=== PATIENT | female | born 1930 | race Hispanic/Latino ===

== ENCOUNTER 2016-08-03 10:45 | Inpatient (IN) | payer MEDICARE ==
[2016-08-03 10:56] VITALS: BMI 20.3
[2016-08-03] MEDS ORDERED: Morphine 4 mg/ml ISec IVP STA ×2 (11:11→13:03)
--- NOTE | 2016-08-03 11:33 | ED PDOC ---
Arrival/HPI - General Chief Complaint: Lower Extremity Problem/Injury Time Seen by Provider: 08/03/16 11:11 Historian: Patient, Other (daughter) - History of Present Illness Narrative History of Present Illness (Text): 08/03/16 11:39 An 85 year old female, whose past medical history includes Alzheimer's, presents to the emergency department complaining of right hip pain after mechanical fall. Patient's daughter reports patient fell this morning. Patient couldn't put pressure on right hip when daughter tried picking her up. Patient had a right hip replacement 5 years ago. Patient denies any other complaints at this time. Daughter and pt confirm she was laying on the ground for less than 30min. Symptom Onset: Sudden Symptom Course: Unchanged Activities at Onset: Rest Context: Home Associated Symptoms (Text): none Past Medical History - Provider Review Nursing Documentation Reviewed: Yes - Infectious Disease Hx of Infectious Diseases: None - Tetanus Immunization Tetanus Immunization: Unknown - Reproductive Menopause: Yes - Past Medical History Past Medical History: No Previous - Hematological/Oncological Hx Blood Transfusions: No Hx Blood Transfusion Reaction: No - Musculoskeletal/Rheumatological Hx Falls: Yes - Psychiatric Hx Depression: No Hx Emotional Abuse: No Hx Physical Abuse: No Hx Substance Use: No - Past Surgical History Past Surgical History: No Previous - Surgical History Hx Joint Replacement: Yes (right hip) - Anesthesia Hx Anesthesia Reactions: No Hx Malignant Hyperthermia: No - Suicidal Assessment Feels Threatened In Home Enviroment: No Family/Social History - Physician Review Nursing Documentation Reviewed: Yes Family/Social History: No Known Family HX Smoking Status: Light Smoker < 10 Cigarettes Daily Hx Alcohol Use: No Hx Substance Use: No Hx Substance Use Treatment: No Allergies/Home Meds Allergies/Adverse Reactions: Allergies No Known Allergies Allergy (Verified 08/03/16 10:56) Home Medications: Home Meds Medication Instructions Recorded Confirmed No Known Home Med [No Known Home 02/23/13 08/03/16 Med] Review of Systems - Physician Review All systems were reviewed & negative as marked: Yes Physical Exam - Physical Exam Narrative Physical Exam (Text): 08/03/16 11:33- Review of Systems Constitutional: Normal. absent: Fatigue, Weight Change, Fevers Eyes: Normal ENT: Normal Respiratory: Normal absent: SOB, Cough, Sputum Cardiovascular: Normal absent: Chest pain, Palpitations, Syncope Gastrointestinal: Normal absent: Abdominal pain, Diarrhea, Nausea, Vomiting Genitourinary: Normal. absent: Dysuria, Frequency, Hematuria Musculoskeletal: Present: right hip/leg pain absent: Back Pain, Neck Pain Skin: Normal Neurological: Normal absent: Focal Weakness Endocrine: Normal Hemo/Lymphatic: Normal Psychiatric: Normal - Physical exam Head atraumatic. No nasal bone deformity or tenderness, no facial or jaw pain/ swelling. No neck midline tenderness, thoracic and lumbar spine with no midline tenderness. Limited ROM of right hip. Femur tender to palpation. Distal neurovasc fully intact. Abd soft/nt/nd, no hematomas, no peritoneal signs. Neg. pelvic rock. Patient appears age appropriate, speaking full sentences without difficulty - Systems Exam Head: Present: Atraumatic, Normocephalic Pupils: Present: PERRL Extraocular Muscles: Present: EOMI Conjunctiva: Present: Normal Mouth: Present: Moist Mucous Membranes Neck: Present: Normal Range of Motion. No: MIDLINE TENDERNESS, Paraspinal Tenderness Respiratory/Chest: Present: Clear to Auscultation, Good Air Exchange. No: Respiratory Distress, Accessory Muscle Use, Tachypnic Cardiovascular: Present: Tachycardic Abdomen: Present: Normal Bowel Sounds, No: Tenderness, Peritoneal Signs, Rebound, Guarding, Distention Back: Present: Normal Inspection. No: Midline Tenderness, Paraspinal Tenderness Upper Extremity: Present: Normal Inspection. No: Cyanosis, Edema Lower Extremity: Present: Mid and proximal femur tender to palpation, limited ROM R hip. Distal neurovascular intact. No: Edema Neurological: Present: GCS=15, Speech Normal, cranial nerves II through XII fully intact with no cerebellar abnormality, neuro-sensory fully intact. No focal neurological deficits. Skin: Present: Warm, Dry, Normal Color. No: Rashes Lymphatic: Present: OX3, NI, NC Psychiatric: Present: Alert, Oriented x 3, Normal Insight, Normal Concentration Vital Signs Reviewed: Yes Vital Signs Temp Pulse Resp BP Pulse Ox 08/03/16 14:35 84 18 115/68 95 08/03/16 13:21 89 18 113/65 95 08/03/16 12:31 97 H 18 111/69 95 08/03/16 10:55 97.7 F 104 H 20 109/68 93 L Temperature: Afebrile Blood Pressure: Normal Pulse: Tachycardic Respiratory Rate: Normal Appearance: Positive for: Well-Appearing, Non-Toxic, Comfortable Pain Distress: None Mental Status: Positive for: Alert and Oriented X 3 Medical Decision Making ED Course and Treatment: 08/03/16 11:31 Impression: An 85 year old female with right hip pain after mechanical fall. On physical exam, femur tender to palpation and limited ROM of right hip. Differential includes but not limited to: fracture, dislocation, sprain Plan: -- Xray pelvis -- Xray hip/pelvis -- Xray Femur -- labs -- Morphine, Toradol -- Reassess and disposition Prior Visits: Notes and results from previous visits were reviewed. Progress Notes: Right femur Xray impression: incompletely imaged acute fracture in the proximal femur. Right hip Xray impression: acute oblique displaced impacted right intertrochanteric fracture. Pelvis Xray impression: no acute displaced fracture or dislocation. 08/03/16 13:[address] Gonzáles, states to admit and he will see pt dw Dr. Gutierrez, agrees with admission pt states she has RUQ tenderness to palpation, +Ponce's sign on reexamination US ordered pt and family aware of diagnosis and plan 08/03/16 13:[address] Gonzáles, asked to obtain CTs and states pt can eat today 08/03/16 14:58 pt US shows cholelithiasis currently pain free - Lab Interpretations Lab Results: 08/03/16 12:28 08/03/16 12:28 Lab Results 08/03/16 12:28: Blood Type O POSITIVE, Antibody Screen Negative, BBK History Checked Patient has bt 08/03/16 12:28: Sodium 138, Potassium 4.0, Chloride 101, Carbon Dioxide 28, Anion Gap 13, BUN 18, Creatinine 0.5, Est GFR ( Amer) > 60, Est GFR (Non- Af Amer) > 60, Random Glucose 91, Calcium 9.9, Total Bilirubin 0.8, AST 22, ALT 24, Alkaline Phosphatase 104, Total Protein 6.3, Albumin 3.9, Globulin 2.3, Albumin/Globulin Ratio 1.7 08/03/16 12:28: PT 11.4, INR 1.06, APTT 29.0 08/03/16 12:28: WBC 11.5 H, RBC 4.33, Hgb 12.4, Hct 37.7, MCV 87.1, MCH 28.6, MCHC 32.9, RDW 13.7, Plt Count 222, MPV 9.4, Gran % 59.5, Lymph % (Auto) 34.3, Citrus % (Auto) 5.7, Eos % (Auto) 0.3 L, Baso % (Auto) 0.2, Gran # 6.82 H, Lymph # 3.9 H, Citrus # 0.7 H, Eos # 0.0, Baso # 0.02 I have reviewed the lab results: Yes - RAD Interpretation Radiology Orders: 08/03/16 11:13 PELVIS W/OBLIQUES (3VWS) [RAD] Stat Femur Right [FEMUR MIN 2 VIEWS RT] [RAD] Stat HIP MIN 4V W/ PELVIS RT [RAD] Stat 08/03/16 13:03 ABDOMEN COMPLETE [US] Stat - Medication Orders Current Medication Orders: Sodium Chloride (Sodium Chloride 0.9%) 1,000 mls @ 70 mls/hr IV .[id number] ANSELMO Last Admin: 08/03/16 14:34 Dose: 70 mls/hr Discontinued Medications Ketorolac Tromethamine (Toradol) 15 mg IVP STAT STA Stop: 08/03/16 11:12 Last Admin: 08/03/16 12:21 Dose: 15 mg Morphine Sulfate (Morphine) 4 mg IVP STAT STA Stop: 08/03/16 11:12 Last Admin: 08/03/16 12:21 Dose: 4 mg Morphine Sulfate (Morphine) 4 mg IVP STAT STA Stop: 08/03/16 13:04 Last Admin: 08/03/16 14:26 Dose: 4 mg - Scribe Statement The provider has reviewed the documentation as recorded by the Eladia Cosme Provider Scribe Attestation: All medical record entries made by the Gloriaibanila were at my direction and personally dictated by me. I have reviewed the chart and agree that the record accurately reflects my personal performance of the history, physical exam, medical decision making, and the department course for this patient. I have also personally directed, reviewed, and agree with the discharge instructions and disposition. Disposition/Present on Arrival - Present on Arrival Any Indicators Present on Arrival: No History of DVT/PE: No History of Uncontrolled Diabetes: No Urinary Catheter: No History of Decub. Ulcer: No History Surgical Site Infection Following: None - Disposition Have Diagnosis and Disposition been Completed?: Yes Diagnosis: Femur fracture Disposition: HOSPITALIZED Disposition Time: 13:17 Patient Plan: Admission Patient Problems: Current Active Problems Problem Status Onset Femur fracture Acute Condition: FAIR
--- NOTE | 2016-08-03 12:25 | RAD ---
PROCEDURE: Radiographs of the pelvis. HISTORY: Pain COMPARISON: 02/24/2013. FINDINGS: BONES: Pelvic Bones: The pelvic ring is intact there is diffuse bone demineralization. There is no acute fracture or bone destruction. Hips: Status post right hip arthroplasty. No hardware complications. 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 JOINTS: Sacroiliac Joints: Mild degenerative osteoarthrosis. Pubic Symphysis: Unremarkable. OTHER FINDINGS: None. IMPRESSION: No acute displaced fracture or dislocation. Status post right hip arthroplasty, no hardware complications with
--- NOTE | 2016-08-03 12:28 | RAD ---
PROCEDURE: Right Hip Radiographs. HISTORY: fall COMPARISON: None. FINDINGS: BONES: There is an acute oblique displaced impacted right intertrochanteric fracture. JOINTS: Status post right hip arthroplasty. SOFT TISSUES: Normal. OTHER FINDINGS: None. IMPRESSION: Acute oblique displaced impacted right intertrochanteric fracture.
[2016-08-03 12:29] LABS: ADD MANUAL DIFF? NO
--- NOTE | 2016-08-03 12:29 | RAD ---
PROCEDURE: Right Femur Radiographs. HISTORY: Fall COMPARISON: None. TECHNIQUE: AP and Lateral Radiographs of the right femur. FINDINGS: FEMUR: There is diffuse bone demineralization. Status post right hip arthroplasty. Incompletely imaged is acute fracture in the proximal femur. SOFT TISSUES: Normal. OTHER FINDINGS: None. IMPRESSION: Incompletely imaged acute fracture in the proximal femur.
[2016-08-03 12:42] LABS: BASO # 0.02 K/mm3 (0.0-2.0); BASO % 0.2 % (0.0-3.0); EOS % 0.3 % (1.5-5.0); GRAN # 6.82 (1.4-6.5); GRAN % 59.5 % (50.0-68.0); HEMATOCRIT 37.7 % (36.0-48.0); LYMPH # 3.9 (1.2-3.4); LYMPH % 34.3 % (22.0-35.0); MEAN CELL VOLUME 87.1 fL (80.0-105.0); MEAN CORPUSCULAR HEMOGLOBIN 28.6 pg (25.0-35.0); MEAN CORPUSCULAR HGB CONC 32.9 g/dl (31.0-37.0); MEAN PLATELET VOLUME 9.4 fl (7.0-11.0); MONO # 0.7 (0.1-0.6); MONO % 5.7 % (1.0-6.0); PLATELET COUNT 222 10^3/uL (120.0-450.0); RED CELL DISTRIBUTION WIDTH 13.7 % (11.5-14.5); WHITE BLOOD COUNT 11.5 10^3/ul (4.5-11.0)
[2016-08-03 12:47] LABS: INR 1.06 (0.93-1.08)
[2016-08-03 12:52] LABS: ALB/GLOB RATIO 1.7 (1.1-1.8); ALKALINE PHOSPHATASE 104 U/L (38-133); ALT/SGPT 24 U/L (7-56); AST/SGOT 22 U/L (15-39); BILIRUBIN,TOTAL 0.8 mg/dL (0.2-1.3); BLOOD UREA NITROGEN 18 mg/dL (7-21); CALCIUM 9.9 mg/dL (8.4-10.5); CARBON DIOXIDE 28 mmol/L (21-33); CHLORIDE 101 mmol/L (98-107); GFR AFRICAN-AMERICAN > 60; GLUCOSE,RANDOM 91 mg/dL (70-110); SODIUM 138 mmol/L (132-148); TOTAL PROTEIN 6.3 g/dL (5.8-8.3)
--- NOTE | 2016-08-03 14:11 | US ---
HISTORY: Right-sided abdominal pain COMPARISON: None. TECHNIQUE: Grayscale imaging was performed. FINDINGS: LIVER: Measures 19.9 cm. Normal echogenicity of the liver parenchyma. No mass. No intrahepatic bile duct dilatation. GALLBLADDER: There are multiple gallstones. No wall thickening, pericholecystic fluid or positive sonographic Ponce's sign COMMON BILE DUCT: Measures 6.1 mm. No stones. No dilatation. PANCREAS: Unremarkable as visualized. No mass. No ductal dilatation. RIGHT KIDNEY: Measures 13.6cm. Normal echogenicity. No calculus, mass, or hydronephrosis. There is a 4.4 x 4.5 x 5.0 cm simple cyst in the lower pole. LEFT KIDNEY: Measures 11.5cm. Normal echogenicity. No calculus, mass, or hydronephrosis. There is a 2.8 x 2.8 x 2.5 cm simple cyst in the interpolar region. SPLEEN: Normal in size and contour. No mass. AORTA: No aneurysmal dilatation. IVC: Unremarkable. OTHER FINDINGS: None. IMPRESSION: Mild hepatomegaly. Cholelithiasis. 5.0 cm simple cyst in the lower pole of the right kidney.
[2016-08-03] MEDS: Sodium Chloride 0.9% 1,000 ML IV SCH (14:34)
--- NOTE | 2016-08-03 14:46 | CT ---
PROCEDURE: Right hip without contrast HISTORY: fx COMPARISON: Previous plain films dated 08/03/2016 and 02/24/2013 TECHNIQUE: CT of the right hip was performed without IV contrast. Sagittal and coronal reconstructions were performed FINDINGS: There is a pre-existing right hip prosthesis. There is a displaced fracture around the femoral component of the prosthesis involving the proximal femoral shaft. This also extends into the intertrochanteric region. Anatomic alignment is maintained. There is no dislocation of the hip joint. The distal femur is unremarkable. There is diffuse osteopenia with loss of trabecular bone. IMPRESSION: Fracture around the femoral component of the right hip prosthesis involving the proximal femoral shaft and intertrochanteric region.
--- NOTE | 2016-08-03 14:47 | CON ---
DATE: 08/03/2016 ORTHOPEDIC REPORT The patient slipped and fell at home. She is in the ER today at [facility]. X-rays of her rig ht hip shows a periprosthetic fracture of the right proximal femur just at the level of the lesser tr ochanter, which is comminuted, but the stem looks stable, but she is going to be going to CAT scan to see how far the fracture extends distally, as the less greater trochanter looks a little fractured a lso, but it is compatible for an NCB plate where we could control the bone from the greater trochante r down to the lateral femoral condyle. She has a well-seated bipolar prosthesis that is pressfit. T here does not appear to be pain when she is at rest, and there is no malpositioning of the lower extr emity on the right side. The patient and family will consent to a stabilization of the fracture, so she could mobilize quicker by putting that NCB plate from [employer] over the fracture to stabilize it. I am going to try to get a medical clearance and get some orthopedic help. There is a chance she tod ht have to be transferred to [facility] to accomplish this. FINAL DIAGNOSIS: Periprosthetic fracture, right femur. To stabilize it, we would have to do an ORIF of the fracture around the well-fixed bipolar prosthesis by doing a [employer] NCB plate once she is medically cleared. Raymundo Che DO cc: [id number] TT: 08/03/2016 14:47:22 Confirmation # [id number] Dictation # [id number] [place]
[2016-08-03] MEDS ORDERED: Enoxaparin 40 mg Syringe SC SCH (15:15)
[2016-08-03] MEDS: HYDROmorphone 0.5 mg/0.5 ml ISec SC PRN ×2 (17:39→21:36)
[2016-08-03 21:02] LABS: ADD MANUAL DIFF? NO
[2016-08-03 21:06] LABS: BASO # 0.02 K/mm3 (0.0-2.0); BASO % 0.2 % (0.0-3.0); EOS % 0.2 % (1.5-5.0); GRAN # 5.04 (1.4-6.5); GRAN % 58.5 % (50.0-68.0); HEMATOCRIT 32.3 % (36.0-48.0); LYMPH # 3.2 (1.2-3.4); LYMPH % 36.8 % (22.0-35.0); MEAN CELL VOLUME 86.1 fL (80.0-105.0); MEAN CORPUSCULAR HGB CONC 32.5 g/dl (31.0-37.0); MEAN PLATELET VOLUME 9.1 fl (7.0-11.0); MONO # 0.4 (0.1-0.6); MONO % 4.3 % (1.0-6.0); PLATELET COUNT 192 10^3/uL (120.0-450.0); RED CELL DISTRIBUTION WIDTH 13.8 % (11.5-14.5); WHITE BLOOD COUNT 8.6 10^3/ul (4.5-11.0)
--- NOTE | 2016-08-03 23:26 | CON ---
DATE: 08/03/2016 LOCATION: The patient is in room 574, bed #2. REASON FOR CONSULTATION AND FOLLOWUP: Risk stratification for hip surgery, cardiac evaluation. HISTORY OF PRESENT ILLNESS: This 85-year-old female had a mechanical fall at home and started compla ining of pain in the right hip area, and she could not get up, and patient found to have a fracture o f the right hip. The patient had 5 years ago same fracture and had replacement therapy at that time. The patient denies any history of chest pain, shortness of breath, palpitation. PAST MEDICAL HISTORY: Positive for the right hip fracture and surgery. PERSONAL HISTORY: She used to smoke 8-10 cigarettes a day, now she states she smokes 2-3 cigarettes a day. She denies drinking. ALLERGIES: Denies any allergies. HOME MEDICATIONS: She says she only was taking vitamin pills. REVIEW OF SYSTEMS: All the systems were reviewed, positive mentioned in the history, others were neg ative. PHYSICAL EXAMINATION: VITAL SIGNS: Blood pressure 135/68, respirations 18, pulse 84, temperature 98.4. HEENT: Head is normocephalic. Eyes: Pupils are normal. Conjunctivae slightly pale. NECK: JVP low. Carotid equal. THORAX: AP diameter normal. LUNGS: Clear. CARDIOVASCULAR: S1, S2. ABDOMEN: Soft, nontender, no organomegaly. Bowel sounds normal. EXTREMITIES: No clubbing, no cyanosis. LABORATORY DATA: WBC 8.6, hemoglobin 10.5, hematocrit 32.3, platelet 192. Sodium 138, potassium 4.0 , BUN 18, creatinine 0.5. AST, ALT, total bilirubin, total protein, albumin normal. EKG shows sinus tachycardia at 104 per minute, nonspecific ST and T changes. X-ray of the hip showed acute oblique displaced impacted right intertrochanteric fracture. CT scan of the right hip showed fracture around the femoral component of the right hip prosthesis involving the proximal femoral shaft and intertroc hanteric region. DIAGNOSES: Fractured right hip, anemia. PLAN: The patient is getting IV fluid therapy. The patient also getting pain medication. Lovenox 4 0 mg subcutaneous daily has been ordered. Will add beta-saima therapy, metoprolol 25 b.i.d., and f rom a cardiac point of view, the patient can go for hip surgery as a moderate to high risk for her ag e and there is no absolute contraindication not to do the surgery. We will follow with you. Mitch Loo MD cc: [id number] TT: 08/03/2016 23:25:58 Confirmation # [id number] Dictation # [id number] dn
[2016-08-04] MEDS: Oxycodone/Acetaminophen 5/325 mg Tab PO PRN ×2 (01:01→23:17)
[2016-08-04] MEDS: Sodium Chloride 0.9% 1,000 ML IV SCH (06:11)
[2016-08-04 07:32] LABS: PH,URINE 5.5 (4.7-8.0); URINE BILIRUBIN NEGATIVE (NEGATIVE); URINE BLOOD SMALL (NEGATIVE); URINE GLUCOSE (UA) NEGATIVE (NEGATIVE); URINE KETONE 15 mg/dL (NEGATIVE); URINE LEUKOCYTE ESTERASE SMALL Leu/uL (NEGATIVE); URINE PROTEIN NEGATIVE mg/dL (<30 mg/dL); URINE UROBILINOGEN 0.2 E.U./dL (<1 E.U./dL)
[2016-08-04 07:34] LABS: URINE APPEARANCE TURBID (CLEAR); URINE COLOR YELLOW (YELLOW)
[2016-08-04 07:51] LABS: URINE BACTERIA MANY (NEG); URINE RBC 0 - 2 /hpf (0-2); URINE WBC 25 - 30 /hpf (0-6)
[2016-08-04 09:08] LABS: ALB/GLOB RATIO 1.5 (1.1-1.8); ALKALINE PHOSPHATASE 78 U/L (38-133); ALT/SGPT 24 U/L (7-56); AST/SGOT 21 U/L (15-39); BILIRUBIN,TOTAL 0.8 mg/dL (0.2-1.3); BLOOD UREA NITROGEN 23 mg/dL (7-21); CALCIUM 8.5 mg/dL (8.4-10.5); CARBON DIOXIDE 26 mmol/L (21-33); CHLORIDE 103 mmol/L (98-107); GFR AFRICAN-AMERICAN > 60; GLUCOSE,RANDOM 97 mg/dL (70-110); POTASSIUM 3.8 mmol/L (3.6-5.0); SODIUM 134 mmol/L (132-148); TOTAL PROTEIN 5.6 g/dL (5.8-8.3)
--- NOTE | 2016-08-04 10:13 | RAD ---
HISTORY: Pre-Op COMPARISON: 02/23/2013 FINDINGS: LUNGS: No active pulmonary disease. PLEURA: No significant pleural effusion identified, no pneumothorax apparent. CARDIOVASCULAR: Normal. OSSEOUS STRUCTURES: No significant abnormalities. VISUALIZED UPPER ABDOMEN: Normal. OTHER FINDINGS: None. IMPRESSION: No active disease.
--- NOTE | 2016-08-04 10:16 | HP ---
CHIEF COMPLAINT AND HISTORY OF PRESENT ILLNESS: This is an 85-year-old female who is coming in to [facility] because of a fall. The patient had a mechanical fall on the right side and was found to h ave a right hip fracture. She was not able to put any pressure on her hip. According to the patient 's daughter that I spoke to yesterday, she did have a hip replacement about 5 years ago. She denies any syncopal episode, no dizziness, no incontinence, no tongue biting, no fevers or chills, no nausea , no vomiting, no dysuria or frequency, no nocturia, no weakness in the arms or the legs except in [facility] right leg, which causes her pain. She otherwise feels well. Pain is controlled with medications. She is not moving. The pain is about 2-3 and tolerable. REVIEW OF SYMPTOMS: All other review of symptoms are within normal limits except as mentioned. ALLERGIES: No known drug allergies. HOME MEDICATIONS: None. PAST MEDICAL HISTORY: Fall. PAST SURGICAL HISTORY: Right hip surgery. SOCIAL HISTORY: She does smoke less than 10 cigarettes a day. She denies alcohol, substance abuse. FAMILY HISTORY: Noncontributory. MEDICATIONS: None. PHYSICAL EXAMINATION: VITAL SIGNS: Temperature is 98.5, pulse of 109. Blood pressure is 111/87, respirations 18, O2 satur ation 94%. Height is 5 feet 7 inches. Weight is 130 pounds. BMI is 20.4. GENERAL: The patient is lying in bed, flat, and in no apparent distress. HEAD AND NECK EXAM: Atraumatic, normocephalic. Conjunctivae are pink. Throat clear and mouth with moist mucosa. Oropharynx benign. EYES: Extraocular movements are intact. PERRLA. NECK: Supple. No JVD, thyromegaly, or adenopathy. No bruits. HEART: S1 and S2 regular rate and rhythm. No murmurs, rubs, or gallops. LUNGS: Clear to auscultation bilaterally. No wheezing rales or rhonchi appreciated. No retraction s on exam. ABDOMEN: Soft, nontender, nondistended. Bowel sounds are positive in all quadrants. No rebound. No hepatosplenomegaly. EXTREMITIES: No cyanosis, clubbing, or edema. In the right leg, there is decreased movement becau se of pain. NEURO: No facial asymmetry, tongue is midline, no uvula deviation. Power is 5/5 in upper extremity and 5/5 in lower extremity. Sensation is normal in upper extremity and lower extremity. PSYCH: Awake, alert, oriented x 2. No anxiety or depression symptoms. Good insight. Normal affe ct. : No CVA tenderness VASCULAR: 2+ pulses in carotid and pedal pulses. SKIN: No erythema or abnormal nodules noted. SPINE: Normal curvature. LYMPHADENOPATHY: No anterior cervical or posterior cervical adenopathy. No inguinal adenopathy. LABORATORY DATA: White count of 11.5, hemoglobin 12.4. Platelets are 222. INR is 1.06. Chemistry shows a sodium 138. Potassium is 4.0. Creatinine is 0.5. AST and ALT are 22 and 24. Albumin is 3. 9. Urine shows blood, small. Nitrites are positive. WBCs are 25-30. A hip and pelvis x-ray done shows an incomplete image acute fracture in the proximal humerus on the r ight femur x-ray, and on the hip x-ray. Pelvic x-ray shows no acute displaced fracture or dislocation. CT of the hip done shows a fracture around the femoral component of the right hip prosthesis involvin g the proximal femoral shaft and intertrochanteric region. Chest x-ray shows no infiltrates. ASSESSMENT: 1. Right hip fracture. 2. Smoking. 3. Fall. 4. A 5-cm simple cyst in the right kidney. 5. Hepatomegaly, mild. 6. Cholelithiasis. PLAN: The patient is going to be admitted to the hospital. She is going to need surgery. I did spe ak to the patient's daughter yesterday. The patient is on a nicotine patch for her smoking. She is on oxycodone for pain. The patient is on IV fluids. The patient is on Lopressor. She is going to b e on Dilaudid for pain. She was cleared by Dr. Loo. We will repeat the patient's blood work coltenairam coker. I did speak to Dr. Che today. Tristan Gutierrez MD cc: [id number] TT: 08/04/2016 10:15:27 [place]
[2016-08-04] MEDS ORDERED: Bupivacaine 0.5% Inj(30mL) ONE (13:13)
[2016-08-04] MEDS: HYDROmorphone 0.5 mg/0.5 ml ISec SC PRN ×2 (13:20→21:24)
[2016-08-04] MEDS ORDERED: Propofol 10 mg/ml Inj (20 ML) ONE (13:48)
[2016-08-04] MEDS ORDERED: ePHEDrine 50 mg/ml Inj ONE (13:49)
[2016-08-04] MEDS ORDERED: Phenylephrine 10 mg/ml Inj ONE (13:49)
[2016-08-04] MEDS ORDERED: Succinylcholine 200 mg/10 ml Inj IV ONE (13:57)
--- NOTE | 2016-08-04 14:08 | PN ---
DATE: 08/04/2016 Being prepared for surgery of her right femur where she had fractured around a bipolar hip prosthesis 2 days ago. It is in good position but needs to be stabilized with a cerclage wire and a femoral pl ate to stabilize it so she could get up out of bed. Family was told about doing the surgery for stab ilization and understands the risks and benefits; benefits being that she could get up out of bed and start ambulating. The risk is if we do not do the surgery, she would have protracted bed rest and w ith a good chance the fracture would go out of place and that would have its own complications of phl ebitis of the lower extremity and pulmonary issues because she is a smoker too. Family was told she probably would lose some blood but might have to replace it if it becomes under 8.5 grams. We are go ing to plan on doing the surgery today, and the family signed a consent. Will follow her closely. Raymundo Che DO cc: [id number] TT: 08/04/2016 14:07:28 Confirmation # [id number] Dictation # [id number] cash
--- NOTE | 2016-08-04 14:28 | CARD ---
APPROVED REPORT EKG Measurement Heart [id number] MA [id number] <Conclusion> Sinus tachycardia STTW changes c/w ischemia
[2016-08-04] MEDS ORDERED: Rocuronium 10 mg/ml (5 ml) ONE (14:46)
[2016-08-04] MEDS ORDERED: Vancomycin 1 g Inj ONE ×2 (15:39→16:21)
[2016-08-04] MEDS ORDERED: HYDROmorphone 0.5 mg/0.5 ml ISec IVP PRN (17:36)
[2016-08-04] MEDS ORDERED: Lactated Ringer's 1,000 ML IV SCH (17:36)
[2016-08-04] MEDS ORDERED: Dextrose 5%/0.45% NS 1,000 ML IV SCH (17:45)
[2016-08-04 17:54] LABS: ADD MANUAL DIFF? NO
[2016-08-04 18:08] LABS: BASO # 0.03 K/mm3 (0.0-2.0); BASO % 0.3 % (0.0-3.0); EOS % 0.2 % (1.5-5.0); GRAN # 6.63 (1.4-6.5); GRAN % 64.5 % (50.0-68.0); HEMATOCRIT 29.8 % (36.0-48.0); LYMPH # 2.8 (1.2-3.4); LYMPH % 26.9 % (22.0-35.0); MEAN CELL VOLUME 89.2 fL (80.0-105.0); MEAN CORPUSCULAR HEMOGLOBIN 28.4 pg (25.0-35.0); MEAN CORPUSCULAR HGB CONC 31.9 g/dl (31.0-37.0); MEAN PLATELET VOLUME 9.3 fl (7.0-11.0); MONO # 0.8 (0.1-0.6); MONO % 8.1 % (1.0-6.0); PLATELET COUNT 187 10^3/uL (120.0-450.0); RED CELL DISTRIBUTION WIDTH 14.2 % (11.5-14.5); WHITE BLOOD COUNT 10.3 10^3/ul (4.5-11.0)
[2016-08-04] MEDS ORDERED: Albuterol-Ipratrop 3 mg / 0.5 (3 ml) UD ONE (18:31)
--- NOTE | 2016-08-04 19:35 | PN ---
DATE: 08/04/2016 LOCATION: Room 574, bed 2. REASON FOR CONSULTATION AND FOLLOWUP: Risk stratification for hip surgery, cardiac evaluation. HISTORY OF PRESENT ILLNESS: This is an 85-year-old female who had a mechanical fall at home and star maddy complaining of pain in the right hip area and she could not get up. The patient found to have fr acture of the right hip. the patient 5 years ago had a fracture of the same hip joint. The pa tient is lying flat in bed without chest pain, shortness of breath, or palpitations. PHYSICAL EXAMINATION: VITAL SIGNS: Blood pressure 122/64, respirations 20, pulse 88, temperature 98.8. HEAD: Normocephalic. EYES: Pupils normal. Conjunctivae slightly pale. NECK: JVP low. Carotid equal. THORAX: AP diameter normal. LUNGS: Clear. CARDIOVASCULAR: S1, S2. ABDOMEN: Soft, nontender, no organomegaly. EXTREMITIES: No clubbing, no cyanosis. LABORATORY DATA: WBC 8.6, hemoglobin 10.5, hematocrit 23.3, platelets 192. Sodium 134, potassium 3. 8, BUN 23, creatinine 0.5, calcium 8.5, total bilirubin 0.8. AST and ALT normal. DIAGNOSES: Fractured right hip, anemia. PLAN: Clinically, the patient's cardiac status is stable. I started metoprolol 25 b.i.d. yesterday and the patient can go for hip surgery as a [id number] risk for her age and there is no absolut e cardiac point of view contraindication to the surgery and will follow with you. Mitch Loo MD cc: [id number] TT: 08/04/2016 19:34:46 Confirmation # [id number] Dictation # [id number] dn
[2016-08-04] MEDS: Albuterol-Ipratrop 3 mg / 0.5 (3 ml) UD IH SCH (21:06)
[2016-08-05] MEDS: ceFAZolin 1 GM in Sodium Chloride 0.9% 50 ML IVPB SCH ×2 (01:00→09:12)
[2016-08-05] MEDS: Albuterol-Ipratrop 3 mg / 0.5 (3 ml) UD IH SCH ×3 (03:03→13:41)
[2016-08-05] MEDS: HYDROmorphone 0.5 mg/0.5 ml ISec SC PRN ×3 (05:37→17:12)
[2016-08-05 07:37] LABS: HEMATOCRIT 25.4 % (36.0-48.0); MEAN CELL VOLUME 87.6 fL (80.0-105.0); MEAN CORPUSCULAR HEMOGLOBIN 27.6 pg (25.0-35.0); MEAN CORPUSCULAR HGB CONC 31.5 g/dl (31.0-37.0); MEAN PLATELET VOLUME 9.6 fl (7.0-11.0); RED CELL DISTRIBUTION WIDTH 14.2 % (11.5-14.5); WHITE BLOOD COUNT 6.9 10^3/ul (4.5-11.0)
--- NOTE | 2016-08-05 07:44 | OP ---
PROCEDURE DATE: 08/04/2016 PREOPERATIVE DIAGNOSIS: Periprosthetic fracture, right proximal femur under a 5 -year-old well-placed bipolar hip prosthesis from 5 years ago. The patient came in the Emergency Room yesterday. POSTOPERATIVE DIAGNOSIS: Periprosthetic fracture, right proximal femur with comminution. PROCEDURE: Open reduction internal fixation with NCB plate from [employer] and with multiple locking screws 4 distal to the implant stem, 2 proximally and over the metaphysis and 2 in the greater trochanter and then we put cerclage wire over the fracture itself in the middle of the proximal and distal screws.also using the troch extension plate. ROLL UP HELPER SURGEON: Dr. Shaan Ferrer and we put a big effert to make the case go smoothly. DESCRIPTION OF PROCEDURE: The patient taken to the OR. Right hip prepped and draped in sterile fashion, put on a fracture table in the right lateral decubitus position. The old incision was utilized that was used for the bipolar prosthesis 5 years ago. We started proximally and went distally and extended the incision about 3 inches distal to the first incision that was done 5 years ago. Deep knife used to go through the subcutaneous tissue. Fascia jared opened in line with the incision and ____ lateralis. Fracture was identified and it was held together by the stem but it was unstable, even though the stem of the prosthesis was holding it. So, we measured the plate. It was a 9-hole plate. We had 4 screws distal to the tip of the prosthesis and we started out by holding it together, getting good x-rays with the plate held to the bone with a K-wire. Then, we put 2 screws proximal in the greater trochanter and 2 proximal to the planned cerclage wires. Then, we put 3 screws distal into the intramedullary part of the bipolar prosthesis which was press- fit and we put 2 cerclage wires around the comminuted pieces of the fracture that were too small for the screws. This seemed to hold everything together. The prosthesis was sitting well. An x-ray showed good position of the hardware and the wires and the plate and the screws and the fracture and the prosthesis. Wound was irrigated with normal saline and and used 2gm of vancomycin powder closed in layers starting with #1 Vicryl for the deep layer including the fascia and vastus lateralis. No drain was needed. The subQ was a multiple layers subQ closure with 0 Vicryl and 2-0 Vicryl and skin with a combination of stainless steel marko and nylon. Dr. Garduno was of great assistance of holding things together, protecting the vital structures and inserting the hardware and putting the drill in working order. The patient taken to recovery room in good condition with abduction pillow. Raymundo Che DO cc: [id number] TT: 08/04/2016 19:31:30 08/05/2016 06:43:33 TO
[2016-08-05 07:52] LABS: ALB/GLOB RATIO 1.3 (1.1-1.8); ALKALINE PHOSPHATASE 65 U/L (38-133); ALT/SGPT 26 U/L (7-56); AST/SGOT 24 U/L (15-39); BILIRUBIN,TOTAL 0.7 mg/dL (0.2-1.3); BLOOD UREA NITROGEN 15 mg/dL (7-21); CALCIUM 7.7 mg/dL (8.4-10.5); CARBON DIOXIDE 26 mmol/L (21-33); CHLORIDE 104 mmol/L (98-107); GFR AFRICAN-AMERICAN > 60; GLUCOSE,RANDOM 145 mg/dL (70-110); POTASSIUM 3.7 mmol/L (3.6-5.0); SODIUM 134 mmol/L (132-148)
--- NOTE | 2016-08-05 14:45 | PN ---
DATE: 08/05/2016 SUBJECTIVE: The patient has no complaints of any chest pain, no shortness of breath. She does have some confusion according to the daughter at the bedside. PHYSICAL EXAMINATION: VITAL SIGNS: Temperature is 98.4, pulse of 90, blood pressure is 110/60, respiration is 18. GENERAL: The patient comfortable, in no acute distress. HEENT: Anicteric sclerae. Moist mucosa. NECK: No JVD or adenopathy. CARDIAC: S1/S2. No murmurs. No rubs. Regular. RESPIRATORY: Clear to auscultation bilaterally. No wheezes, rales, or rhonchi. Good air entry. ABDOMEN: Bowel sounds are positive, soft, nontender, and nondistended. EXTREMITIES: No edema. Has 1+ pulses. LABORATORIES: White count of 6.9, hemoglobin 8.0. Creatinine 0.5. ASSESSMENT: 1. Right hip fracture at the periprosthetic site, status post open reduction internal fixation. 2. Smoking. 3. Fall. 4. A 5 cm right renal cyst. 5. Hepatomegaly, mild. 6. Cholelithiasis. 7. Acute anemia, secondary to blood loss. PLAN: The patient is going to be transfused today. She is on IV fluids. I will discontinue the pat ient's IV fluids. She is going to be on metoprolol. She is going be on Lovenox for deep venous thro mbosis prophylaxis. She is on a nicotine patch for smoking. She is on Percocet for pain. She is on a heart healthy diet. I did speak to the patient's daughter at the bedside to give her an update on the patient's diagnosis and plan of care. Tristan Gutierrez MD cc: [id number] TT: 08/05/2016 14:44:19 Confirmation # [id number] Dictation # [id number] en
--- NOTE | 2016-08-05 16:07 | RAD ---
PROCEDURE: Fluoroscopy up to 1 hour HISTORY: O.R.I.F. RIGHT HIP COMPARISON: TECHNIQUE: Fluoroscopy was provided in the operating room. 1 minutes and 46 seconds of fluoroscopy time was use. Eight images were submitted FINDINGS: The study shows placement of a plate screws and wires around the proximal right femur. There is a preexisting right hip arthroplasty IMPRESSION: As above
--- NOTE | 2016-08-05 16:22 | PN ---
DATE: 08/05/2016 REASON FOR CONSULTATION AND FOLLOWUP: Hip fracture, status post cardiac evaluation for hip surgery, status post post-followup. BRIEF CLINICAL HISTORY: This is an 85-year-old female who had a mechanical fall at home and sustaine d fracture. Cardiac evaluation for hip fracture. The patient had a hip fracture 5 years ago and hip fracture at the same spot. The patient yesterday went to [place] for surgery and patient yester day underwent hip surgery. Denies any chest pain, shortness of breath, any palpitation. PHYSICAL EXAMINATION: As follows: VITAL SIGNS: Temperature afebrile, heart rate 90, blood pressure 110/60. HEENT: PERRLA, intact. NECK: Supple. No carotid bruits. No thyromegaly. CHEST: Clear to auscultation. HEART: S1, S2 regular. ABDOMEN: Soft. EXTREMITIES: Clubbing, cyanosis negative. BLOOD WORKUP: As follows: WBC 6.9, hemoglobin 8, hematocrit 25.4, platelet count 186. Chemistry sh ows sodium 134, potassium 3.7, chloride 104, carbon dioxide 26, anion gap of 8, BUN 15, creatinine 0. 5. Total protein ____, albumin 2.8. IMPRESSION: Protein calorie malnutrition, anemia, status post fall, status post fracture, status pos t open reduction internal fixation. Postop, patient is stable. No complaint of chest pain or shortn ess of breath, any palpitation except for the right femoral fracture and open reduction internal fixa tion. Anemia postop and protein-calorie malnutrition. RECOMMENDATION: Increase ____ ambulation. Continue adequate analgesia. Continue beta saima, 25 m g metoprolol ____. Deep venous thrombosis prophylaxis. We will follow with you. Thank you, Dr. Gutierrez for providing the opportunity in taking care of the patient. Mitch Streeter MD cc: [id number] TT: 08/05/2016 16:21:32 Confirmation # [id number] Dictation # [id number] sn
[2016-08-05] MEDS ORDERED: Enoxaparin 30 mg Syringe SC SCH (17:45)
[2016-08-05 20:21] LABS: ADD MANUAL DIFF? NO
[2016-08-05 20:35] LABS: BASO # 0.01 K/mm3 (0.0-2.0); BASO % 0.1 % (0.0-3.0); GRAN % 54.6 % (50.0-68.0); HEMATOCRIT 30.5 % (36.0-48.0); LYMPH # 2.8 (1.2-3.4); LYMPH % 33.7 % (22.0-35.0); MEAN CORPUSCULAR HEMOGLOBIN 27.9 pg (25.0-35.0); MEAN CORPUSCULAR HGB CONC 32.8 g/dl (31.0-37.0); MEAN PLATELET VOLUME 9.7 fl (7.0-11.0); MONO % 11.6 % (1.0-6.0); PLATELET COUNT 166 10^3/uL (120.0-450.0); RED CELL DISTRIBUTION WIDTH 14.9 % (11.5-14.5); WHITE BLOOD COUNT 8.4 10^3/ul (4.5-11.0)
[2016-08-06] MEDS: Albuterol-Ipratrop 3 mg / 0.5 (3 ml) UD IH SCH ×3 (01:54→13:21)
[2016-08-06] MEDS: HYDROmorphone 0.5 mg/0.5 ml ISec SC PRN ×2 (04:40→14:12)
[2016-08-06 07:45] VITALS: RESP 22; TEMP 100; O2SAT 95
[2016-08-06 08:07] LABS: ALB/GLOB RATIO 1.3 (1.1-1.8); ALKALINE PHOSPHATASE 69 U/L (38-133); ALT/SGPT 25 U/L (7-56); AST/SGOT 27 U/L (15-39); BLOOD UREA NITROGEN 13 mg/dL (7-21); CALCIUM 8.1 mg/dL (8.4-10.5); CARBON DIOXIDE 26 mmol/L (21-33); CHLORIDE 104 mmol/L (95-110); GFR AFRICAN-AMERICAN > 60; GLUCOSE,RANDOM 103 mg/dL (70-110); POTASSIUM 3.5 mmol/L (3.6-5.0); SODIUM 134 mmol/L (132-148); TOTAL PROTEIN 5.1 g/dL (5.8-8.3)
--- NOTE | 2016-08-06 08:55 | DS ---
DATE: 08/06/2016 DATE: 08/06/2016 SUBJECTIVE: The patient has no complaints of any chest pain, no shortness of breath, no headaches. PHYSICAL EXAMINATION: VITAL SIGNS: Temperature is 99.4, pulse of 105. Blood pressure is 126/51, respirations 18. GENERAL: The patient is comfortable, in no acute distress. HEENT: Anicteric sclerae. Moist mucosa. NECK: No JVD or adenopathy. CARDIAC: S1/S2. No murmurs. No rubs. Regular. RESPIRATORY: Clear to auscultation bilaterally. No wheezes, rales, or rhonchi. Good air entry. ABDOMEN: Bowel sounds are positive, soft, nontender, and nondistended. EXTREMITIES: No edema. Has 1+ pulses. LABS: Hemoglobin is 10.0. ASSESSMENT: 1. Right hip fracture at the periprosthetic site status post open reduction and internal fixation. 2. Acute anemia secondary to blood loss, status post transfusion of 2 units of packed red blood cell s. 3. Smoking. 4. Fall. 5. A 5-cm right renal cyst. 6. Hepatomegaly mild. 7. Cholelithiasis. PLAN: The patient is currently comfortable. She is to go to [facility] today. She is g oing to continue with metoprolol. She is on Lovenox for DVT prophylaxis. She is on nicotine patch. She is going to be continued on her Percocet. She feels well. CONDITION: Stable. ACTIVITY: Increase as tolerated. Tristan Gutierrez MD cc: [id number] TT: 08/06/2016 08:55:05 Confirmation # [id number] Dictation # [id number] solange
--- NOTE | 2016-08-06 09:27 | PN ---
DATE: 08/06/2016 An 85-year-old female who underwent ORIF of her right hip on 08/04/2016 for periprosthetic fracture o f bipolar hip prosthesis that was treated with a large bone plate and cerclage wires and screws. Thi s morning, she is comfortable. She had 2 units of blood yesterday and today she feels much better an d there is no complaint of pain. We are going to get her up out of bed and she can put partial weigh tbearing of the right hip, and hopefully progress well with therapy. The wound is dry. The choices are subacute rehab or home. Will see how she does and will just continue to follow the electrolytes and the CBC. Raymundo Che DO cc: [id number] TT: 08/06/2016 09:27:17 Confirmation # [id number] Dictation # [id number] cash
[2016-08-06] MEDS: Oxycodone/Acetaminophen 5/325 mg Tab PO PRN (09:47)
[2016-08-06 09:51] VITALS: BP 126/66; PULSE 90
--- NOTE | 2016-08-06 19:48 | PN ---
DATE: 08/06/2016 LOCATION: The patient is in room 572, bed 2. REASON FOR CONSULTATION AND FOLLOWUP: Hip fracture, status post cardiac evaluation for hip surgery, status post follow up of hip surgery. HISTORY OF PRESENT ILLNESS: The patient is an 85-year-old female who had a mechanical fall at home a nd sustained a fracture of the hip. The patient is post-hip fracture surgery, lying flat in bed with out chest pain, shortness of breath, or palpitation. PHYSICAL EXAMINATION: VITAL SIGNS: Blood pressure 126/66, respirations 22, pulse 90, temperature 100. HEENT: Head is normocephalic. Eyes: Pupils normal. Conjunctivae slightly pale. NECK: JVP low. Carotid equal. THORAX: AP diameter normal. LUNGS: Clear. CARDIOVASCULAR: S1, S2. ABDOMEN: Soft, nontender, no organomegaly. Bowel sounds normal. EXTREMITIES: No clubbing, no cyanosis. LABORATORY DATA: WBC 8.4, hemoglobin 10.0, hematocrit 30.5, platelet 166. Sodium 134, potassium 3.5 , BUN 13, creatinine 0.5. AST and ALT normal. Total protein 5.1, albumin 2.8. DIAGNOSES: Status post fall, status post hip fracture, status post hip fracture surgery, anemia, pro tein calorie malnutrition. PLAN: The patient is being transferred to a rehab facility today. The patient is on 25 mg of metopr olol b.i.d. Will continue that and will follow with you. Mitch Loo MD cc: [phone] TT: 08/06/2016 19:47:36 Confirmation # [id number] Dictation # [id number] dn
== END 2016-08-06 16:08 | DRG 481 ==
LOC: ED 10:45 → ERH 13:18 → 5RSO 15:19
PROVIDERS: ADMIT Internal Medicine Nephrology; ATTEND Internal Medicine Nephrology
PROC: 0QS606Z Reposition Right Upper Femur with Intramedullary Internal Fixation Device, Open Approach (ICD-10-PCS; principal; 2016-08-04 14:00)
DX: S72.141A Displaced intertrochanteric fracture of right femur, initial encounter for closed fracture (principal); M97.01XA Periprosthetic fracture around internal prosthetic right hip joint, initial encounter; E46 Unspecified protein-calorie malnutrition; N28.1 Cyst of kidney, acquired; R16.0 Hepatomegaly, not elsewhere classified; G30.9 Alzheimer's disease, unspecified; F02.80 Dementia in other diseases classified elsewhere, unspecified severity, without behavioral disturbance, psychotic disturbance, mood disturbance, and anxiety; D62 Acute posthemorrhagic anemia; W01.0XXA Fall on same level from slipping, tripping and stumbling without subsequent striking against object, initial encounter; Y92.009 Unspecified place in unspecified non-institutional (private) residence as the place of occurrence of the external cause; Z87.81 Personal history of (healed) traumatic fracture; F17.210 Nicotine dependence, cigarettes, uncomplicated; K80.20 Calculus of gallbladder without cholecystitis without obstruction; R40.2412 Glasgow coma scale score 13-15, at arrival to emergency department

== ENCOUNTER 2016-09-11 11:43 | Inpatient (IN) | payer MEDICARE ==
[2016-09-11 11:43] VITALS: BMI 20.3
[2016-09-11] MEDS ORDERED: Morphine 4 mg/ml ISec IVP STA (12:15)
[2016-09-11] MEDS ORDERED: Sodium Chloride 0.9% 1,000 ML IV STA (12:21)
--- NOTE | 2016-09-11 12:42 | ED PDOC ---
Arrival/HPI - General Chief Complaint: Trauma Time Seen by Provider: 09/11/16 11:50 Historian: Patient - History of Present Illness Narrative History of Present Illness (Text): 09/11/16 12:11 Gabriella Zhu is an 85 year old female, whose past medical history includes partial right hip replacement, and recent right side hip fracture, who is brought in by EMS after a fall. The patient reports she thinks she tripped and fell on her left side today causing her to experience pain in her left hip region. Patient denies chest pain, shortness of breath, dizziness, lightheadedness, or palpitation. Patient did not hit their head and denies any loss of consciousness, headache, fever, chills, cough, nausea, vomiting, diarrhea, visual changes, neck pain, dysuria, or other complaints. PMD: [facility]: Dr. Che Time/Duration: Prior to Arrival Symptom Onset: Sudden Symptom Course: Unchanged Activities at Onset: Light Modifying Factors (Text): pain is worse with palpation or movement on the left side area of hip Context: Home, Tripped Associated Symptoms (Text): None Past Medical History - Provider Review Nursing Documentation Reviewed: Yes - Infectious Disease Hx of Infectious Diseases: None - Tetanus Immunization Tetanus Immunization: Unknown - Past Medical History Past Medical History: No Previous - Cardiac Hx Cardiac Disorders: No - Pulmonary Hx Respiratory Disorders: No - Neurological Hx Neurological Disorder: Yes Hx Dementia: Yes - HEENT Hx HEENT Disorder: No - Renal Hx Renal Disorder: No - Endocrine/Metabolic Hx Endocrine Disorders: No - Hematological/Oncological Hx Blood Disorders: No Hx Blood Transfusions: No Hx Blood Transfusion Reaction: No - Integumentary Hx Dermatological Disorder: No - Musculoskeletal/Rheumatological Hx Musculoskeletal Disorders: Yes Hx Arthritis: Yes - Gastrointestinal Hx Gastrointestinal Disorders: Yes Hx Gall Bladder Disease: Yes (Gallstones) - Genitourinary/Gynecological Hx Genitourinary Disorders: Yes Hx Incontinence: Yes - Psychiatric Hx Psychophysiologic Disorder: No Hx Emotional Abuse: No Hx Physical Abuse: No Hx Substance Use: No - Past Surgical History Past Surgical History: No Previous - Surgical History Hx Orthopedic Surgery: Yes - Anesthesia Hx Anesthesia Reactions: No Hx Malignant Hyperthermia: No - Suicidal Assessment Feels Threatened In Home Enviroment: No Family/Social History - Physician Review Nursing Documentation Reviewed: Yes Family/Social History: Unknown Family HX Smoking Status: Current Some Days Smoker Hx Alcohol Use: No Hx Substance Use: No Hx Substance Use Treatment: No Allergies/Home Meds Allergies/Adverse Reactions: Allergies No Known Allergies Allergy (Verified 09/11/16 11:52) Home Medications: Home Meds Medication Instructions Recorded Confirmed ALPRAZolam [Xanax] 0.25 mg PO DAILY PRN 09/11/16 09/11/16 Metoprolol Tartrate [Metoprolol 25 mg PO BID 09/11/16 09/11/16 Tartrate] traMADol [Ultram] 50 mg PO Q6 PRN 09/11/16 09/11/16 Review of Systems - Physician Review All systems were reviewed & negative as marked: Yes - Review of Systems Constitutional: Normal Eyes: Normal ENT: Normal Respiratory: Normal Cardiovascular: Normal Gastrointestinal: Normal. absent: Abdominal Pain, Diarrhea, Nausea, Vomiting Genitourinary Female: Normal Musculoskeletal: Other (left hip pain) Skin: Normal Neurological: Normal. absent: Headache, Dizziness Endocrine: Normal. absent: Diaphoresis Hemo/Lymphatic: Normal Psychiatric: Normal Physical Exam Vital Signs Reviewed: Yes Vital Signs Temp Pulse Pulse Resp BP Pulse Ox 09/11/16 14:57 98.7 F 100 H 20 143/76 99 09/11/16 14:54 98.6 F 100 H 100 H 21 138/79 09/11/16 14:38 98.6 F 100 H 21 138/79 09/11/16 12:17 97.9 F 94 H 18 112/62 98 Temperature: Afebrile Blood Pressure: Normal Pulse: Tachycardic Respiratory Rate: Normal Appearance: Positive for: Uncomfortable (due to pain) Pain Distress: Moderate Mental Status: Positive for: Alert and Oriented X 3 - Systems Exam Head: Present: Atraumatic, Normocephalic Pupils: Present: PERRL Conjunctiva: Present: Normal Mouth: Present: Moist Mucous Membranes Pharnyx: Present: Normal. No: ERYTHEMA, Uvular Deviation Neck: Present: Normal Range of Motion. No: MIDLINE TENDERNESS Respiratory/Chest: Present: Clear to Auscultation, Good Air Exchange. No: Respiratory Distress, Accessory Muscle Use Cardiovascular: Present: Regular Rate and Rhythm, Normal S1, S2. No: Murmurs Abdomen: Present: Normal Bowel Sounds. No: Tenderness, Distention, Peritoneal Signs Upper Extremity: Present: Normal Inspection. No: Cyanosis, Edema Lower Extremity: Present: Other (left leg internallly rotated with ttp at the left hip). No: Edema Neurological: Present: GCS=15, CN II-XII Intact, Speech Normal Skin: Present: Warm, Dry, Normal Color. No: Rashes Psychiatric: Present: Alert, Oriented x 3, Normal Insight, Normal Concentration Medical Decision Making ED Course and Treatment: 09/11/16 12:11 Impression: 85 year old with left hip pain after mechanical fall. Differential Diagnosis included but are not limited to: fracture vs. dislocation Plan: -- EKG -- Chest X-ray -- Left Hip X-ray -- Urinalysis -- Labs -- Morphine and Sodium Chloride -- Reassess and disposition Progress notes: EKG: Ordered, reviewed, and independently interpreted the EKG. Rate : 85 BPM Rhythm : NSR Interpretation : Normal intervals, normal axis. No ST changes. 09/11/2016 13:05 Hemoglobin reading was 7.3. Consent was obtained by daughter for blood transfusion. 09/11/16 15:16 Patient with noted history. There is a subcapital fracture of the left hip. Will need surgery. Discussed with Dr. Che, who saw the patient, who said she will need an operation. Will need blood for transfusion. Discussed with Dr. Deng, covering Dr. Gutierrez. 09/11/16 14:08 Chest X-ray: Creator : Blair Yeboah MD COMPARISON: The the comparison chest 08/04/2016 FINDINGS: LUNGS: The interstitial markings are increased and coarsened with scattered peribronchial cuffing changes. . In addition, the lung lassiter are hyperinflated on. Rule out chronic changes of reactive/inflammatory airway disease and or emphysema. The. No focal consolidation. PLEURA: No significant pleural effusion identified. No pneumothorax apparent. CARDIOVASCULAR: Normal. OSSEOUS STRUCTURES: No significant abnormalities. VISUALIZED UPPER ABDOMEN: Normal. OTHER FINDINGS: None. IMPRESSION: The interstitial markings are increased and coarsened with scattered peribronchial cuffing changes. . In addition, the lung lassiter are hyperinflated on. Rule out chronic changes of reactive/inflammatory airway disease and or emphysema. The. No focal consolidation. 09/11/16 14:16 Hip and Pelvis X-ray: Creator : Blair Yeboah MD COMPARISON: Comparison made with prior study 08/03/2016. FINDINGS: Current study reveals a apparent impaction basicervical fracture of. Fracture lines extend into the greater trochanter region. Left femoral head is appropriately located within the left acetabulum. No other fractures are seen. Right-sided total hip replacement appears intact so far as can be seen however note that the entire right prostatic hip is not completely visualized. IMPRESSION: Basicervical impaction fracture with fracture lines extending into the greater trochanter region.No evidence of dislocation. Impaction fracture. 09/11/2016 14:[address] without contrast: Creator : Blair Yeboah MD FINDINGS: HEMORRHAGE: No acute parenchymal, subarachnoid or extra-axial hemorrhage. BRAIN: Moderate diffuse/confluent chronic periventricular white matter ischemic changes seen extending peripherally into the deep and subcortical white matter both cerebral hemispheres. There may be some extension of these changes into the white matter tracts of both basal nuclei. Mild vascular calcifications both carotid siphons. Moderate generalized volume loss. VENTRICLES: No evidence of obstructive hydrocephalus. CALVARIUM: No acute calvarial fracture seen. PARANASAL SINUSES: Unremarkable as visualized. No significant inflammatory changes. MASTOID AIR CELLS: Unremarkable as visualized. No inflammatory changes. OTHER FINDINGS: Orbits and contents appear grossly unremarkable. IMPRESSION: No acute intracranial hemorrhage. Moderate chronic white matter ischemic changes. There may also be some extension of these ischemic changes into the white matter tracts of both basal nuclei. Moderate volume loss - Lab Interpretations Lab Results: 09/11/16 12:41 09/11/16 12:41 Lab Results 09/11/16 12:41: Blood Type O POSITIVE, Antibody Screen Negative, Crossmatch See Detail, BBK History Checked Patient has bt 09/11/16 12:41: Sodium 137, Potassium 3.0 L, Chloride 99, Carbon Dioxide 29, Anion Gap 12, BUN 11, Creatinine 0.4 L, Est GFR ( Amer) > 60, Est GFR ( Non-Af Amer) > 60, Random Glucose 94, Calcium 8.8, Magnesium 1.9, Total Bilirubin 0.5, AST 25, ALT 21, Alkaline Phosphatase 138 H, Lactate Dehydrogenase 555, Total Creatine Kinase 32 L, Troponin I < 0.01, Total Protein 5.9, Albumin 3.2, Globulin 2.7, Albumin/Globulin Ratio 1.2, Lipase 12 L 09/11/16 12:41: PT 11.6, INR 1.07, APTT 28.7 09/11/16 12:41: WBC 11.1 H D, RBC 2.90 L, Hgb 7.3 L D, Hct 24.9 L, MCV 85.9, MCH 25.2, MCHC 29.3 L, RDW 16.2 H, Plt Count 623 H, MPV 9.0, Gran % 64.0, Lymph % (Auto) 29.9, [place] % (Auto) 5.7, Eos % (Auto) 0.2 L, Baso % (Auto) 0.2, Gran # 7.13 H, Lymph # 3.3, [place] # 0.6, Eos # 0.0, Baso # 0.02 I have reviewed the lab results: Yes - RAD Interpretation Radiology Orders: 09/11/16 12:14 Brain [HEAD W/O CONTRAST] [CT] Stat CHEST TWO VIEWS (PA/LAT) [RAD] Stat Hip Left [HIP MIN 4V W/ PELVIS LT] [RAD] Stat - EKG Interpretation Interpreted by ED Physician: Yes Type: 12 lead EKG - Medication Orders Current Medication Orders: Sodium Chloride (Sodium Chloride 0.9%) 1,000 mls @ 100 mls/hr IV .Q10H STA Stop: 09/11/16 22:20 Last Admin: 09/11/16 12:56 Dose: 100 mls/hr Discontinued Medications Hydromorphone HCl (Dilaudid) 0.5 mg IVP STAT STA Stop: 09/11/16 13:01 Last Admin: 09/11/16 14:18 Dose: 0.5 mg Morphine Sulfate (Morphine) 4 mg IVP STAT STA Stop: 09/11/16 12:16 Last Admin: 09/11/16 12:18 Dose: 4 mg Pneumococcal Polyvalent Vaccine (Pneumovax 23 Vaccine) 0.5 ml IM .ONCE ONE Stop: 09/11/16 15:11 Potassium Chloride (Potassium Chloride Oral Soln) 40 meq PO STAT STA Stop: 09/11/16 13:07 Last Admin: 09/11/16 14:18 Dose: 40 meq - Scribe Statement The provider has reviewed the documentation as recorded by the Scribe 09/11/2016 Damaris Marshall All medical record entries made by the Scribe were at my direction and personally dictated by me. I have reviewed the chart and agree that the record accurately reflects my personal performance of the history, physical exam, medical decision making, and the department course for this patient. I have also personally directed, reviewed, and agree with the discharge instructions and disposition. Disposition/Present on Arrival - Present on Arrival Any Indicators Present on Arrival: No History of DVT/PE: No History of Uncontrolled Diabetes: No Urinary Catheter: No History of Decub. Ulcer: No History Surgical Site Infection Following: None - Disposition Have Diagnosis and Disposition been Completed?: Yes Diagnosis: Hip fracture, left, Anemia Disposition: HOSPITALIZED Disposition Time: 13:19 Patient Plan: Admission Patient Problems: Current Active Problems Problem Status Onset Anemia Acute Hip fracture, left Acute Condition: FAIR
[2016-09-11 12:53] LABS: BASO # 0.02 K/mm3 (0.0-2.0); BASO % 0.2 % (0.0-3.0); EOS % 0.2 % (1.5-5.0); GRAN # 7.13 (1.4-6.5); LYMPH # 3.3 (1.2-3.4); LYMPH % 29.9 % (22.0-35.0); MEAN CELL VOLUME 85.9 fL (80.0-105.0); MEAN CORPUSCULAR HEMOGLOBIN 25.2 pg (25.0-35.0); MEAN CORPUSCULAR HGB CONC 29.3 g/dl (31.0-37.0); MONO # 0.6 (0.1-0.6); MONO % 5.7 % (1.0-6.0); PLATELET COUNT 623 10^3/uL (120.0-450.0); RED CELL DISTRIBUTION WIDTH 16.2 % (11.5-14.5); WHITE BLOOD COUNT 11.1 10^3/ul (4.5-11.0)
[2016-09-11 12:56] LABS: HEMOGLOBIN 7.3 gm/dL (12.0-16.0)
[2016-09-11 12:57] LABS: INR 1.07 (0.93-1.08); PARTIAL THROMBOPLASTIN TIME 28.7 Seconds (23.7-30.8); PROTHROMBIN TIME 11.6 Seconds (9.9-11.8)
[2016-09-11 12:58] LABS: ALB/GLOB RATIO 1.2 (1.1-1.8); ALBUMIN 3.2 g/dL (3.0-4.8); ALT/SGPT 21 U/L (7-56); AST/SGOT 25 U/L (15-39); BLOOD UREA NITROGEN 11 mg/dL (7-21); CALCIUM 8.8 mg/dL (8.4-10.5); GFR AFRICAN-AMERICAN > 60; GFR NON-AFRICAN AMERICAN > 60; LIPASE 12 U/L (23-300); MAGNESIUM 1.9 mg/dL (1.7-2.2)
[2016-09-11] MEDS ORDERED: HYDROmorphone 0.5 mg/0.5 ml ISec IVP STA (13:00)
[2016-09-11] MEDS ORDERED: Potassium Chloride 40 mEq/30 ml LIQ UD PO STA (13:06)
[2016-09-11 13:10] LABS: TROPONIN I < 0.01 ng/mL
--- NOTE | 2016-09-11 14:05 | RAD ---
HISTORY: hip injury, fall COMPARISON: The the comparison chest 08/04/2016 TECHNIQUE: Chest PA and lateral FINDINGS: LUNGS: The interstitial markings are increased and coarsened with scattered peribronchial cuffing changes. . In addition, the lung lassiter are hyperinflated on. Rule out chronic changes of reactive/inflammatory airway disease and or emphysema. The. No focal consolidation. PLEURA: No significant pleural effusion identified. No pneumothorax apparent. CARDIOVASCULAR: Normal. OSSEOUS STRUCTURES: No significant abnormalities. VISUALIZED UPPER ABDOMEN: Normal. OTHER FINDINGS: None. IMPRESSION: The interstitial markings are increased and coarsened with scattered peribronchial cuffing changes. . In addition, the lung lassiter are hyperinflated on. Rule out chronic changes of reactive/inflammatory airway disease and or emphysema. The. No focal consolidation.
--- NOTE | 2016-09-11 14:16 | RAD ---
PROCEDURE: Left hip 09/11/2016 HISTORY: L hip pain s/p fall - r/o fx COMPARISON: Comparison made with prior study 08/03/2016. TECHNIQUE: Multiple views of the left hip performed. FINDINGS: Current study reveals a apparent impaction basicervical fracture of. Fracture lines extend into the greater trochanter region. Left femoral head is appropriately located within the left acetabulum. No other fractures are seen. Right-sided total hip replacement appears intact so far as can be seen however note that the entire right prostatic hip is not completely visualized. IMPRESSION: Basicervical impaction fracture with fracture lines extending into the greater trochanter region. No evidence of dislocation. Impaction fracture
--- NOTE | 2016-09-11 14:25 | CT ---
PROCEDURE: CT HEAD WITHOUT CONTRAST. HISTORY: fall COMPARISON: No prior TECHNIQUE: Axial computed tomography images were obtained through the head/brain without intravenous contrast. Radiation dose: Total exam DLP = 1818.01 mGy-cm. This CT exam was performed using one or more of the following dose reduction techniques: Automated exposure control, adjustment of the mA and/or kV according to patient size, and/or use of iterative reconstruction technique. FINDINGS: HEMORRHAGE: No acute parenchymal, subarachnoid or extra-axial hemorrhage. BRAIN: Moderate diffuse/confluent chronic periventricular white matter ischemic changes seen extending peripherally into the deep and subcortical white matter both cerebral hemispheres. There may be some extension of these changes into the white matter tracts of both basal nuclei. Mild vascular calcifications both carotid siphons. Moderate generalized volume loss. VENTRICLES: No evidence of obstructive hydrocephalus. CALVARIUM: No acute calvarial fracture seen. PARANASAL SINUSES: Unremarkable as visualized. No significant inflammatory changes. MASTOID AIR CELLS: Unremarkable as visualized. No inflammatory changes. OTHER FINDINGS: Orbits and contents appear grossly unremarkable. IMPRESSION: No acute intracranial hemorrhage. Moderate chronic white matter ischemic changes. There may also be some extension of these ischemic changes into the white matter tracts of both basal nuclei. Moderate volume loss .
[2016-09-11] MEDS ORDERED: Pneumococcal 23-Valent Vaccine IM ONE (15:10)
[2016-09-11 15:53] LABS: PH,URINE 6.5 (4.7-8.0); URINE BILIRUBIN NEGATIVE (NEGATIVE); URINE BLOOD TRACE-INTACT (NEGATIVE); URINE GLUCOSE (UA) NEGATIVE (NEGATIVE); URINE LEUKOCYTE ESTERASE NEGATIVE Leu/uL (NEGATIVE); URINE NITRATE POSITIVE (NEGATIVE); URINE PROTEIN TRACE mg/dL (<30 mg/dL)
[2016-09-11] MEDS ORDERED: HYDROmorphone 2 mg/ml ISec IVP PRN (15:53)
[2016-09-11 15:56] LABS: URINE APPEARANCE SLIGHT-CLOUDY (CLEAR); URINE COLOR YELLOW (YELLOW)
[2016-09-11 16:02] LABS: URINE AMORPHOUS SEDIMENT TRACE; URINE BACTERIA LARGE (NEG)
--- NOTE | 2016-09-11 16:07 | CT ---
PROCEDURE: CT pelvis and left hip dated 09/11/2016 HISTORY: Left hip pain. Rule out fracture. COMPARISON: Correlation made with radiographs of the left hip earlier same day FINDINGS: Contiguous helical/transaxial images of the left hip were obtained. Coronal and sagittal reformats were generated. This CT exam was performed using one or more of the following dose reduction techniques: Automated exposure control, adjustment of the mA and/or kV according to patient size, and/or use of iterative reconstruction technique. Total exam DLP = 466.96 mGy-cm. Findings: The current study re- demonstrates a impacted and as a cervical fracture of the left femur. The left femoral neck is foreshortened as a result. . The left femoral head is appropriately located within the left acetabulum. There are no other acute displaced fractures nor dislocations. Status post right total hip replacement. Hardware appears intact without evidence of loosening or infection. Impression: There is a basilar cervical local impaction fracture left femur with foreshortening of the left femoral neck. Mild varus angulation. No evidence of dislocation. Right-sided total hip replacement.
--- NOTE | 2016-09-11 19:06 | CARD ---
APPROVED REPORT EKG Measurement Heart [id number] <Conclusion> Normal sinus rhythm with sinus arrhythmia Normal ECG
[2016-09-11] MEDS: HYDROmorphone 2 mg/ml ISec IVP PRN (21:23)
[2016-09-12 08:02] LABS: BASO # 0.02 K/mm3 (0.0-2.0); BASO % 0.2 % (0.0-3.0); GRAN # 7.99 (1.4-6.5); GRAN % 65.6 % (50.0-68.0); HEMOGLOBIN 9.6 gm/dL (12.0-16.0); LYMPH # 3.3 (1.2-3.4); MEAN CELL VOLUME 82.6 fL (80.0-105.0); MEAN CORPUSCULAR HEMOGLOBIN 25.3 pg (25.0-35.0); MEAN CORPUSCULAR HGB CONC 30.6 g/dl (31.0-37.0); MEAN PLATELET VOLUME 8.5 fl (7.0-11.0); MONO # 0.9 (0.1-0.6); MONO % 7.2 % (1.0-6.0); PLATELET COUNT 492 10^3/uL (120.0-450.0); RED CELL DISTRIBUTION WIDTH 16.4 % (11.5-14.5); WHITE BLOOD COUNT 12.2 10^3/ul (4.5-11.0)
[2016-09-12 08:11] LABS: ALB/GLOB RATIO 1.3 (1.1-1.8); ALBUMIN 3.2 g/dL (3.0-4.8); ALT/SGPT 28 U/L (7-56); AST/SGOT 21 U/L (15-39); BLOOD UREA NITROGEN 6 mg/dL (7-21); CALCIUM 8.6 mg/dL (8.4-10.5); GFR AFRICAN-AMERICAN > 60; GFR NON-AFRICAN AMERICAN > 60
--- NOTE | 2016-09-12 10:06 | HP ---
HISTORY OF PRESENT ILLNESS: The patient is an 85-year-old patient of Dr. Lopez. The patient states she made a silly mistake when she got up this morning to go to the bathroom. She tripped on something and fell on her left side and started to have excruciating pain. She was unable to get up,so ambulance was called and she was brought to emergency room where it was found that she had left hip fracture. The patient recently had a fall in 07/2016, and at that point, she had right hip fracture that required surgery, and after rehab, the patient came home and sustained this injury causing her left hip fracture. Denies any nausea or vomiting. No headache. No dizziness. PAST MEDICAL HISTORY: Significant for: 1. Recent right hip open reduction and internal fixation. 2. Borderline hypertension. ALLERGIES: THE PATIENT IS NOT ALLERGIC TO ANY MEDICATIONS. MEDICATIONS AT HOME: She is on 1. Tramadol 50 mg q.6 hours p.r.n. 2. Metoprolol 25 b.i.d. 3. Xanax as needed. SOCIAL HISTORY: She currently smokes a few cigarettes here and there. REVIEW OF SYSTEMS: Significant for pain in the left hip area. Otherwise, she does not have any significant complaint. PHYSICAL EXAMINATION GENERAL: She is awake and alert, communicative, complaining of feeling thirsty, complaining of pain in the left hip. VITAL SIGNS: She is afebrile, pulse 99, respirations 20, and blood pressure 136/72. HEART: S1 and S2 audible. LUNGS: Bilateral fair air flow. No rhonchi or crackle. ABDOMEN: Soft and nontender. No rebound. No guarding. NEUROLOGIC: The patient is awake and alert. EXTREMITIES: Unable to move her left leg because of recent fracture. Bilateral legs: No edema. No ulcer. LABORATORY EXAM: WBC 11.1, hemoglobin 7.3, hematocrit 24.9, and platelets of 623. PT 11.6 and INR 1.07. Chemistry: Sodium 137, potassium 3.0, chloride 99, CO2 of 29, BUN 11, and creatinine 0.4. Blood sugar of 194. LFTs are within normal limits. Alkaline phosphatase is 138. LDH is 555, CPK 32, and troponin is 0.01. Urinalysis shows positive nitrite, trace ketones, and negative leukocyte. She had CT scan of the pelvis done that shows she has impacted fracture of left femur causing shortening of left femoral neck. ASSESSMENT: 1. Status post mechanical fall. 2. Left hip fracture. 3. Anemia. 4. Hypokalemia. PLAN: The patient will receive 2 packed RBCs. She will be started on metoprolol and analgesics as needed. We will start her on Colace and analgesics as needed. Dr. Che to evaluate and take care of the patient, possible open reduction and internal fixation on Tuesday. We will follow up her H and H and CBC in a.m. and also follow up her electrolytes in the a.m. Todd Deng MD
[2016-09-12] MEDS: cefTRIAXone 1 gm 1 GM/100 ML BAG IVPB SCH (10:56)
--- NOTE | 2016-09-12 14:07 | CON ---
ORTHOPEDIC CONSULTATION DATE: 09/11/2016 HISTORY OF PRESENT ILLNESS: The patient is an 85-year-old female who just was released from the hospital for [id number] fracture of the right femur and then she fell at home because of weakness and has a new fracture subcapital of the left femur at the hip intracapsular fracture. X-ray showed displaced impacted fracture at the left hip that will need a bipolar hip prosthesis. This most likely would not heal if we put pins in because she is very osteopenic also and the fracture is displaced, so she would probably get AVN. So, when she is medically cleared, she will need medical doctor clearance and to see her cardiac scott with Dr. Garcia. Once she is cleared, we could perform a right bipolar hip prosthesis when she is cleared, will get to work in 48 hours. FINAL DIAGNOSIS: Impacted displaced subcapital fracture of the right hip. We will need a bipolar hip prosthesis when she is medically and cardiac cleared. Raymundo Che DO
[2016-09-12] MEDS: HYDROmorphone 2 mg/ml ISec IVP PRN (15:14)
--- NOTE | 2016-09-13 05:13 | CON ---
DATE: 09/11/2016 HISTORY OF PRESENT ILLNESS: An 85-year-old female first seen on 09/11/2016 to the ER with right hip pain. X-ray shows impacted displaced subcapital fracture right hip and within a half year ago, she had a fracture of left femur, but we will have to *------* right hip fracture by doing a bipolar hip prosthesis when she is medically stable. We will go ahead to perform this surgery when she is medically cleared and should be by Tuesday afternoon or Tuesday we could probably do it. Raymundo Che DO
--- NOTE | 2016-09-13 05:45 | PN ---
SUBJECTIVE: The patient is 85 years old who was admitted yesterday, fell and sustained fracture of left femur, is impacted. She recently had right hip fracture that was in July of 2016. The patient was found to be anemic, received 2 blood transfusions, doing well. Pain seems to be under control. PHYSICAL EXAMINATION VITAL SIGNS: She is afebrile, pulse 90, respirations 19, blood pressure 152/69. LUNGS: Bilateral fair air flow. No rhonchi or crackles. HEART: S1, S2, audible. ABDOMEN: Soft, nontender. No rebound, no guarding. NEUROLOGICAL: The patient is awake and alert, able to communicate. EXTREMITIES: Bilateral legs, no edema, no ulcer and both feet are warm. LABORATORY DATA: WBC is 12.2, hemoglobin is 9.6, hematocrit is 31.4, platelets 192,000. Chemistry: Sodium 134, potassium 3.4, chloride 100, CO2 is 26, BUN 6, creatinine 0.4, blood sugar of 107. Urinalysis shows positive nitrites. Cultures are pending. ASSESSMENT: 1. Status post fall and status post left hip fracture. 2. Hypertension. 3. Anemia, status post 2 blood transfusions. 4. Status post right total hip replacement. PLAN: Patient is on analgesics. She is on beta-saima. We will continue analgesics. Continue her on Rocephin. Follow up urine culture. Patient is scheduled for surgery in the a.m. Todd Deng MD
[2016-09-13 08:02] LABS: BASO # 0.02 K/mm3 (0.0-2.0); BASO % 0.2 % (0.0-3.0); EOS % 0.1 % (1.5-5.0); GRAN # 6.18 (1.4-6.5); GRAN % 65.7 % (50.0-68.0); HEMOGLOBIN 8.7 gm/dL (12.0-16.0); LYMPH # 2.3 (1.2-3.4); LYMPH % 24.6 % (22.0-35.0); MEAN CELL VOLUME 82.6 fL (80.0-105.0); MEAN CORPUSCULAR HEMOGLOBIN 25.3 pg (25.0-35.0); MEAN CORPUSCULAR HGB CONC 30.6 g/dl (31.0-37.0); MEAN PLATELET VOLUME 8.8 fl (7.0-11.0); MONO # 0.9 (0.1-0.6); MONO % 9.4 % (1.0-6.0); PLATELET COUNT 407 10^3/uL (120.0-450.0); RBC 3.44 10^6/uL (3.5-6.1); RED CELL DISTRIBUTION WIDTH 16.1 % (11.5-14.5); WHITE BLOOD COUNT 9.4 10^3/ul (4.5-11.0)
[2016-09-13 08:20] LABS: ALB/GLOB RATIO 1.2 (1.1-1.8); ALBUMIN 2.9 g/dL (3.0-4.8); ALT/SGPT 23 U/L (7-56); AST/SGOT 20 U/L (15-39); BLOOD UREA NITROGEN 9 mg/dL (7-21); CALCIUM 8.3 mg/dL (8.4-10.5); GFR AFRICAN-AMERICAN > 60; GFR NON-AFRICAN AMERICAN > 60
[2016-09-13] MEDS ORDERED: Potassium Chloride 20 mEq ER Tab PO ONE (08:54)
[2016-09-13] MEDS: cefTRIAXone 1 gm 1 GM/100 ML BAG IVPB SCH (09:28)
--- NOTE | 2016-09-13 10:27 | CP.PCM.CON ---
History of Present Illness - History of Present Illness History of Present Illness: General Surgery Consult Resident: Carlos Attending: Xavier [facility] Patient is a 85 y/o WF who came in 3 days ago after falling at home. We are being consulted for cholelithiasis/possible cholecystitis. She had a pelvic CT done 2 days ago that showed pericholecystic fluid and stones in the gallbladder. She had US on 08/03/16 that showed stones.Today patient denies any pain. She also denies nausea and vomiting. She is passing gas and having bowel movements. PMH: history of falls PSH: R hip replacement on 08/04/2016 SH: denies tobacco use, alcohol use, and illicit drugs Allergies: NKA Review of Systems - Constitutional Constitutional: As Per HPI - EENT Eyes: As Per HPI Ears: As Per HPI Nose/Mouth/Throat: As Per HPI - Cardiovascular Cardiovascular: absent: Chest Pain - Respiratory Respiratory: absent: Dyspnea - Gastrointestinal Gastrointestinal: As Per HPI - Musculoskeletal Musculoskeletal: As Per HPI Past Patient History - Infectious Disease Hx of Infectious Diseases: None - Tetanus Immunizations Tetanus Immunization: Unknown - Past Social History Smoking Status: Current Some Days Smoker Alcohol: None Drugs: Denies - CARDIAC Hx Cardiac Disorders: No - PULMONARY Hx Respiratory Disorders: No - NEUROLOGICAL Hx Neurological Disorder: Yes Hx Dementia: Yes - HEENT Hx HEENT Problems: No - RENAL Hx Chronic Kidney Disease: No - ENDOCRINE/METABOLIC Hx Endocrine Disorders: No - HEMATOLOGICAL/ONCOLOGICAL Hx Blood Disorders: No Hx Blood Transfusions: No Hx Blood Transfusion Reaction: No - INTEGUMENTARY Hx Dermatological Problems: No - MUSCULOSKELETAL/RHEUMATOLOGICAL Hx Musculoskeletal Disorders: Yes Hx Arthritis: Yes Hx Back Pain: Yes Hx Falls: Yes Hx Fractures: Yes - GASTROINTESTINAL Hx Gastrointestinal Disorders: Yes - GENITOURINARY/GYNECOLOGICAL Hx Genitourinary Disorders: Yes Hx Incontinence: Yes - PSYCHIATRIC Hx Psychophysiologic Disorder: No Hx Emotional Abuse: No Hx Physical Abuse: No Hx Substance Use: No - SURGICAL HISTORY Hx Surgeries: Yes Hx Orthopedic Surgery: Yes - ANESTHESIA Hx Anesthesia Reactions: No Hx Malignant Hyperthermia: No Meds Allergies/Adverse Reactions: Allergies Allergy/AdvReac Type Severity Reaction Status Date / Time No Known Allergies Allergy Verified 09/11/16 11:52 - Medications Medications: Current Medications Alprazolam (Xanax) 0.25 mg PO HS ANSELMO PRN Reason: Protocol Stop: 09/18/16 22:01 Last Admin: 09/12/16 21:28 Dose: 0.25 mg Docusate Sodium (Colace) 200 mg PO DAILY [facility] Last Admin: 09/13/16 09:27 Dose: 200 mg Hydromorphone HCl (Dilaudid) 1 mg IVP Q4H PRN PRN Reason: Pain, moderate (4-7) Last Admin: 09/12/16 15:14 Dose: 1 mg Ceftriaxone Sodium (Rocephin 1 Gram Ivpb) 1 gm in 100 mls @ 100 mls/hr IVPB DAILY ANSELMO PRN Reason: Protocol Last Admin: 09/13/16 09:28 Dose: 100 mls/hr Metoprolol Tartrate (Lopressor) 25 mg PO BID [facility] Last Admin: 09/13/16 09:28 Dose: 25 mg Physical Exam - Constitutional Appears: No Acute Distress - Head Exam Head Exam: NORMAL INSPECTION - Eye Exam Eye Exam: EOMI, Normal appearance - ENT Exam ENT Exam: Mucous Membranes Moist - Respiratory Exam Respiratory Exam: Clear to Auscultation Bilateral - Cardiovascular Exam Cardiovascular Exam: REGULAR RHYTHM. absent: Gallop, Rubs - GI/Abdominal Exam GI & Abdominal Exam: Normal Bowel Sounds, Soft. absent: Distended, Tenderness Results - Vital Signs Recent Vital Signs: Last Vital Signs Temp 99.1 F 09/13/16 06:00 Pulse 90 09/13/16 07:54 Resp 20 09/13/16 06:00 BP 138/61 09/13/16 06:00 Pulse Ox 93 L 09/13/16 06:00 - Labs Result Diagrams: 09/13/16 07:10 09/13/16 07:10 Labs: Laboratory Results - last 24 hr 09/13/16 09/13/16 07:10 07:10 WBC 9.4 D RBC 3.44 L Hgb 8.7 L Hct 28.4 L MCV 82.6 MCH 25.3 MCHC 30.6 L RDW 16.1 H Plt Count 407 MPV 8.8 Gran % 65.7 Lymph % (Auto) 24.6 [place] % (Auto) 9.4 H Eos % (Auto) 0.1 L Baso % (Auto) 0.2 Gran # 6.18 Lymph # 2.3 [place] # 0.9 H Eos # 0.0 Baso # 0.02 Sodium 135 Potassium 3.4 L Chloride 98 Carbon Dioxide 26 Anion Gap 14 BUN 9 Creatinine 0.4 L Est GFR ( Amer) > 60 Est GFR (Non-Af Amer) > 60 Random Glucose 92 Calcium 8.3 L Total Bilirubin 1.0 AST 20 ALT 23 Alkaline Phosphatase 127 Total Protein 5.3 L Albumin 2.9 L Globulin 2.4 Albumin/Globulin Ratio 1.2 Assessment & Plan - Assessment and Plan (Free Text) Assessment: Patient is an 85 y/o WF with cholelithiasis. * Follow up HIDA * Plan discussed with Dr. Xavier Gonzalez DO PGY-1
[2016-09-13] MEDS ORDERED: Barium Sulfate Susp 2.1% w/v, 2.0% w/w 450 mL Bottle PO ONE (11:23)
[2016-09-13] MEDS: HYDROmorphone 2 mg/ml ISec IVP PRN ×2 (13:59→20:31)
--- NOTE | 2016-09-13 15:03 | PN ---
DATE: 09/13/2016 SUBJECTIVE: The patient has no complaints of any headaches. No dizziness. No nausea. PHYSICAL EXAMINATION: VITAL SIGNS: Temperature is 99.1, pulse of 90, blood pressure 130/61, respirations 20. HEENT: Anicteric sclerae. Moist mucosa. NECK: No JVD, adenopathy, or thyromegaly. CARDIOPULMONARY: S1 and S2. There is a II/ systolic ejection murmur. No rubs. LUNGS: Clear to auscultation bilaterally. No wheezes, rales, or rhonchi. ABDOMEN: Bowel sounds are positive, soft, nontender, and nondistended. No hepatosplenomegaly. EXTREMITIES: Lower extremity, 2+ pulses, no edema. LABORATORY DATA: White count 9.4, hemoglobin 8.7, creatinine is 0.4, potassium 3.4. ASSESSMENT: 1. Left hip fracture. 2. Hypertension. 3. Chololithiasis with abdominal pain. 4. Acute anemia secondary to blood loss, status post transfusion. 5. Status post right total hip replacement. 6. Osteoporosis. PLAN: The patient is currently comfortable. She is on Dilaudid for pain. She is going to be on Colace. The patient is on Rocephin for antibiotics. The patient has Xanax as needed. She has an abdominal ultrasound that has been ordered. The patient has been having abdominal pain. We will get surgery to evaluate the patient, has chololithiasis on the previous ultrasound done on 08/03/2016. The patient is going to be on metoprolol. She is on Colace. She is on a heart healthy diet. Tristan Gutierrez MD
[2016-09-13] MEDS ORDERED: Dextrose 5%/0.45% NS 1,000 ML IV SCH (15:30)
[2016-09-13 17:14] LABS: BASO # 0.01 K/mm3 (0.0-2.0); BASO % 0.1 % (0.0-3.0); EOS % 0.2 % (1.5-5.0); GRAN # 6.07 (1.4-6.5); HEMOGLOBIN 8.8 gm/dL (12.0-16.0); LYMPH # 2.2 (1.2-3.4); LYMPH % 24.2 % (22.0-35.0); MEAN CORPUSCULAR HEMOGLOBIN 25.3 pg (25.0-35.0); MEAN CORPUSCULAR HGB CONC 30.4 g/dl (31.0-37.0); MEAN PLATELET VOLUME 8.6 fl (7.0-11.0); MONO # 0.9 (0.1-0.6); MONO % 9.5 % (1.0-6.0); PLATELET COUNT 349 10^3/uL (120.0-450.0); RBC 3.48 10^6/uL (3.5-6.1); RED CELL DISTRIBUTION WIDTH 15.9 % (11.5-14.5); WHITE BLOOD COUNT 9.2 10^3/ul (4.5-11.0)
--- NOTE | 2016-09-13 18:48 | CT ---
PROCEDURE: CT Abdomen and Pelvis with contrast HISTORY: Anemia COMPARISON: 09/11/2016 CT pelvis. Summary of findings on the comparison examination: Impacted fracture left femur aligned 08/03/2016 abdominal ultrasound. Summary of findings on the comparison examination: Hepatomegaly, cholelithiasis, 5 cm simple cyst right kidney TECHNIQUE: Contrast dose: Oral contrast only. Radiation dose: Total exam DLP = 326.45 mGy-cm. This CT exam was performed using one or more of the following dose reduction techniques: Automated exposure control, adjustment of the mA and/or kV according to patient size, and/or use of iterative reconstruction technique. FINDINGS: LOWER THORAX: Small bilateral pleural effusions and associated compressive atelectasis. LIVER: Hepatomegaly. No gross lesion or ductal dilatation. GALLBLADDER AND BILE DUCTS: Gallstones are identified. Air-fluid level in the gallbladder is a nonspecific finding but can be seen with biliary enteric intervention and less likely gallstone ileus. PANCREAS: Enlarged and the head of the pancreas, the tail is atrophic. Incomplete assessment related to a paucity of retroperitoneal fat and absence of intravenous contrast. SPLEEN: Unremarkable. ADRENALS: Nonspecific enlargement of the both adrenal glands, the left is larger than the right. No discrete adrenal mass however is identified KIDNEYS AND URETERS: Unremarkable. No hydronephrosis. No solid mass. Incidental finding(s): Bilateral renal cysts. C VASCULATURE: Unremarkable. No aortic aneurysm. BOWEL: Unremarkable. No obstruction. No gross mural thickening. APPENDIX: Normal appendix. PERITONEUM: Unremarkable. No free fluid. No free air. LYMPH NODES: Unremarkable. No enlarged lymph nodes. BLADDER: Unremarkable. REPRODUCTIVE: Unremarkable. BONES: Permeative lytic lesion in the L3 vertebral body without associated paravertebral abnormality. Evidence of spinal stenosis lower lumbar spine. Confirmation of previously identified proximal left femoral fracture. Evidence of old healed bilateral pelvic ring fracture. Contiguous healed nondisplaced lateral right rib fractures. OTHER FINDINGS: None. IMPRESSION: 1. Hepatomegaly without focal hepatic abnormality. 2. Enlargement of pancreatic head and atrophy the body and tail of the pancreas. Follow-up recommended to exclude pancreatic head mass. 3. Cholelithiasis without CT evidence of acute cholecystitis. Air-fluid level in the gallbladder suggests either recent intervention or gallstone ileus. 4. Confirmation of acute femoral fracture on the left. Old healed bilateral pelvic ring fractures. 5. Small bilateral pleural effusions and underlying atelectasis Lytic lesion L3 vertebral body. No other suspicious abnormalities with respect to visualized osseous structures. 6. Limitations of the current study: Absence of intravenous contrast given findings described above.
--- NOTE | 2016-09-13 18:58 | CARD ---
APPROVED REPORT EXAM: Two-dimensional and M-mode echocardiogram with Doppler and color Doppler. INDICATION Pre-Op 2D DIMENSIONS Left Atrium (2D)2.9 (1.6-4.0cm)IVSd1.1 (0.7-1.1cm) LVDd2.8 (3.9-5.9cm)PWd0.9 (0.7-1.1cm) LVDs2.2 (2.5-4.0cm)FS (%) 24.3 % LVEF (%)50.0 (>50%) M-Mode DIMENSIONS Aortic Root2.70 (2.2-3.7cm)Aortic Cusp Exc.1.30 (1.5-2.0cm) Aortic Valve AoV Peak Ajbbfown849.0cm/Bautista Peak GR.7mmHg Mitral Valve MV E Dqfshrwq10.4cm/sMV A Dwllewjt978.0cm/sE/A ratio0.9 TDI E/Lateral E'0.0E/Medial E'0.0 Tricuspid Valve TR Peak Pnssfarx552vz/sRAP [id number] Peak Gr.45mmHg [id number] LEFT VENTRICLE The left ventricle is normal size. There is normal left ventricular wall thickness. The left ventricular function is normal.EF-55% There is mild hypokinesis in the mid-inferolateral wall. Transmitral Doppler flow pattern is Grade III-reversible restrictive diastolic dysfunction. No left ventricle thrombus noted on this study. There is no ventricular septal defect visualized. There is no left ventricular aneurysm. There is no mass noted in the left ventricle. RIGHT VENTRICLE The right ventricle is normal size. There is normal right ventricular wall thickness. The right ventricular systolic function is normal. ATRIA The left atrium size is normal. The right atrium size is normal. The interatrial septum is intact with no evidence for an atrial septal defect. AORTIC VALVE The aortic valve is thickened but opens well. There is trace aortic regurgitation. Aortic sclerosis Vs mild As MITRAL VALVE The mitral valve is thickened but opens well. Mitral regurgitation is mild to moderate. There is no mitral valve stenosis. There is no evidence of mitral valve prolapse. TRICUSPID VALVE The tricuspid valve leaflets are thickened , but open well. There is mild to moderate tricuspid regurgitation.RVSP-55 mmof hg. There is no tricuspid valve stenosis. There is no tricuspid valve prolapse or vegetation. PULMONIC VALVE The pulmonic valve is not well visualized. GREAT VESSELS The aortic root is normal in size. The ascending aorta is normal in size. The pulmonary artery is normal. The IVC is normal in size and collapses >50% with inspiration. PERICARDIAL EFFUSION There is no pleural effusion. There is no pericardial effusion. <Conclusion> The left ventricle is normal size. There is normal left ventricular wall thickness. The left ventricular function is normal.EF-55% There is trace aortic regurgitation. Aortic sclerosis Vs mild As Mitral regurgitation is mild to moderate. There is mild to moderate tricuspid regurgitation.RVSP-55 mmof hg. There is no pericardial effusion. The IVC is normal in size and collapses >50% with inspiration.
--- NOTE | 2016-09-14 03:17 | CON ---
GASTROENTEROLOGY CONSULT DATE: 09/13/2016 The patient was seen and examined earlier today. The chart was reviewed. REQUEST FOR CONSULTATION: Cholelithiasis. HISTORY OF PRESENT ILLNESS: This is an 85-year-old female with a past medical history of hypertension and recent right hip ORIF came in status post fall with complaints of severe pain to left side. Patient was found to have a left hip fracture. She did have a head CT and that was negative for a bleed. Patient also had a CT scan of pelvis, noted to have some gallstones and concerns for pericholecystic fluid and stones in the gallbladder. The patient did have an abdominal ultrasound on 08/03/2016 that did show multiple gallstones. The common bile duct measured 6.1 mm. The patient denies any nausea, vomiting or abdominal pain. No reports of any fever or chills. Although on admission, the patient came in with a hemoglobin of 7.3, she did get 2 units of packed RBCs and that went up to 9.6 on 09/12/2016 and today, she is at 8.7. No reports of any melena or bleeding per rectum. No recent history of EGD or colonoscopy. PAST MEDICAL HISTORY: As stated above, hypertension, history of falls, gallstones and history of dementia. PAST SURGICAL HISTORY: Right hip ORIF. ALLERGIES: No known drug allergies. FAMILY HISTORY: Noncontributory at this time. MEDICATIONS: Reviewed as per MAR. SOCIAL HISTORY: History of smoking. No history of ETOH or substance abuse. REVIEW OF SYSTEMS: System reviewed with positive findings, see HPI. PHYSICAL EXAMINATION: VITAL SIGNS: Temperature is 99.1, pulse rate 98, blood pressure 138/61, respirations 20 and 93 nasal cannula. HEENT: Sclerae are anicteric. NECK: Supple. CARDIAC: S1 and S2. LUNGS: Sounds with decreased breath sounds, but good air entry. No rales or wheeze. ABDOMEN: With bowel sounds, soft. No tenderness on palpation. No rebound or guarding. EXTREMITIES: Positive pedal pulses. No edema. NEUROLOGIC: Awake, alert and aware of surroundings. LABORATORY DATA: Today, WBC 9.4, H and H 8.7 and 28.4, platelets are 407. PT on 09/11/2016 is 11.6, INR is 1.07., PTT is 28.7. Sodium 135, potassium 3.4, BUN is 9, creatinine is 0.4. Total LFTs are within normal limits. Her alkaline phosphatase was elevated on admission at 138 on 09/11/2016; on 09/12/2016, it was 140, and now it is normalized at 127. IMAGING: Shows left femoral neck is foreshortened. As a result, the left femoral head re-demonstrates impact and has a cervical fracture of the left femur. There is no acute or displaced fracture nor dislocation, status post right total hip replacement. Hardware appears intact without evidence of loosening or infection. There is a basilar cervical and local impaction fracture in the left femur with foreshortening of the left femoral neck, mild varus angulation. No evidence of dislocation. Hip and pelvis x-ray shows *------* cervical impaction fracture with fracture lines extending into the greater trochanteric region. No evidence of dislocation. There is an impaction fracture. ASSESSMENT: This is an 85-year-old female with a past medical history of falls, recent open reduction internal fixation, came in with status post fall. The patient has found to have a left fracture. She was also noted to have gallstones and concerns for acute cholecystitis. PLAN: Patient is pending a HIDA scan, we have requested for. Also, the patient with anemia, rule out GI bleed, requested for a CT scan of the abdomen and pelvis only with oral contrast. Patient is on a heart healthy diet. Continue stool softeners. We will put patient on GI prophylaxis, and we will continue to follow. Thank you for this consult and for allowing us to participate in your patient's care. We will make further recommendation based upon patient's clinical course. Patient was seen and case discussed with Dr. Servin. QUANG Vazquez
--- NOTE | 2016-09-14 05:28 | CON ---
DATE OF CONSULTATION: 09/13/2016 CONSULT SERVICE: Cardiology. REASON FOR CONSULTATION: Preop clearance for right hip fracture. BRIEF CLINICAL HISTORY: This is an 85-year-old female with no significant past medical history except the patient had a fall and sustained fracture of right hip, status post open reduction and internal fixation. The patient fell down yesterday and got displaced fractures requiring open reduction and internal fixation. Cardiology consult was called for preoperative evaluation and risk stratification before surgery. The patient denies any chest pain, shortness of breath, or any palpitations. PAST HISTORY: Significant for hip fracture and surgery. SOCIAL HISTORY: Denies any smoking recently, used to smoke 8 to 10 cigarettes a day many years ago. ALLERGIES: No known drug allergy. CURRENT MEDICATIONS: None. REVIEW OF SYSTEMS: As per HPI. PHYSICAL EXAMINATION: VITAL SIGNS: Temperature afebrile, heart rate 90, blood pressure 134/61. HEENT: PERRLA. Extraocular muscles are intact. NECK: Supple. No carotid bruit or thyromegaly. CHEST: Clear to auscultation. HEART: S1 and S2 regular. ABDOMEN: Soft. EXTREMITIES: Clubbing and cyanosis negative. EKG showed normal sinus, no acute ST-T changes noted. Blood workup as follows: WBC 9.7, hemoglobin 8.7, hematocrit 28.4, platelet count 407. Chemistry shows sodium 135, potassium 3.4, chloride 90, carbon dioxide 26, anion gap of 9, BUN 14, creatinine 0.4, total protein 5.2, albumin 2.9. Last echo the patient had on 02/23/2013 showed ejection fraction of 5% to 60%, grade 3 diastolic dysfunction, [id number] mitral regurgitation, no mitral stenosis, moderate tricuspid regurgitation, systolic pressure was 78. IMPRESSION: Status post fall, status post open reduction and internal fixation, status post re-fracture of the hip, hypokalemia, protein calorie malnutrition, anemia. PREOPERATIVE RECOMMENDATION: No absolute contraindication for surgery and no evidence of ischemia. EKG is normal. No evidence of arrhythmia. No evidence of congestive heart failure though the patient would be at high risk because of *------* comorbidity, but no absolute contraindication. The patient is cleared to go for surgery with high risk case. We will get echo to assess LV function and aortic stenosis. We will follow with you. Thank you Dr. Deng plus Dr. Raymundo Che for providing the opportunity in taking care of Gabriella Zhu. Mitch Streeter MD
[2016-09-14 07:41] LABS: ALB/GLOB RATIO 1.2 (1.1-1.8); ALBUMIN 2.8 g/dL (3.0-4.8); ALT/SGPT 39 U/L (7-56); AST/SGOT 62 U/L (15-39); BLOOD UREA NITROGEN 10 mg/dL (7-21); CALCIUM 8.3 mg/dL (8.4-10.5); GFR AFRICAN-AMERICAN > 60; GFR NON-AFRICAN AMERICAN > 60; MAGNESIUM 1.9 mg/dL (1.7-2.2)
[2016-09-14] MEDS: HYDROmorphone 2 mg/ml ISec IVP PRN ×3 (07:42→21:26)
--- NOTE | 2016-09-14 07:53 | CP.PCM.PN ---
Subjective - Date & Time of Evaluation Date of Evaluation: 09/14/16 Time of Evaluation: 07:50 - Subjective Subjective: General Surgery Progress note for Dr. Park PT S&E at bedside. ANTELMO. PT denies f/c, n/v, diarrhea, constipation. patient admits to some abdominal pain and hip pain. Objective - Vital Signs/Intake and Output Vital Signs (last 24 hours): Temp Pulse Resp BP Pulse Ox 98.3 F 85 18 123/65 95 09/14/16 03:49 09/14/16 03:49 09/14/16 03:49 09/14/16 03:49 09/13/16 16:00 Intake and Output: 09/14/16 09/14/16 06:59 18:59 Intake Total 375 Output Total 200 Balance 175 - Medications Medications: Current Medications Alprazolam (Xanax) 0.25 mg PO HS ANSELMO PRN Reason: Protocol Stop: 09/18/16 22:01 Last Admin: 09/13/16 21:00 Dose: 0.25 mg Docusate Sodium (Colace) 200 mg PO DAILY [facility] Last Admin: 09/13/16 09:27 Dose: 200 mg Hydromorphone HCl (Dilaudid) 1 mg IVP Q4H PRN PRN Reason: Pain, moderate (4-7) Last Admin: 09/14/16 07:42 Dose: 1 mg Ceftriaxone Sodium (Rocephin 1 Gram Ivpb) 1 gm in 100 mls @ 100 mls/hr IVPB DAILY ANSELMO PRN Reason: Protocol Last Admin: 09/13/16 09:28 Dose: 100 mls/hr Dextrose/Sodium Chloride (Dextrose 5%/0.45% Ns 1000 Ml) 1,000 mls @ 70 mls/hr IV .[id number] [facility] Last Admin: 09/14/16 07:37 Dose: 70 mls/hr Metoprolol Tartrate (Lopressor) 25 mg PO BID [facility] Last Admin: 09/13/16 09:28 Dose: 25 mg - Labs Labs: 09/13/16 17:10 09/14/16 06:30 PT 11.6 Seconds (9.9-11.8) 09/11/16 12:41 INR 1.07 (0.93-1.08) 09/11/16 12:41 APTT 28.7 Seconds (23.7-30.8) 09/11/16 12:41 Assessment and Plan - Assessment and Plan (Free Text) Assessment: 85 F presents with hip fracture and cholelithiasis Plan: f/u HIDA scan OR Today 09/14 for Ortho for left proximal femoral fracture (bicervical trochanteric impaction fracture) c/w current medical management Naye Saini DO PGY1
[2016-09-14 08:07] LABS: HEMOGLOBIN 10.5 gm/dL (12.0-16.0); MEAN CELL VOLUME 83.9 fL (80.0-105.0); MEAN CORPUSCULAR HEMOGLOBIN 26.4 pg (25.0-35.0); MEAN CORPUSCULAR HGB CONC 31.4 g/dl (31.0-37.0); MEAN PLATELET VOLUME 9.1 fl (7.0-11.0); RBC 3.98 10^6/uL (3.5-6.1); RED CELL DISTRIBUTION WIDTH 15.4 % (11.5-14.5); WHITE BLOOD COUNT 8.7 10^3/ul (4.5-11.0)
[2016-09-14] MEDS: cefTRIAXone 1 gm 1 GM/100 ML BAG IVPB SCH (09:37)
--- NOTE | 2016-09-14 10:54 | US ---
HISTORY: billiary air compare with recent ct COMPARISON: Abdomen pelvis CT 09/13/2016. TECHNIQUE: Sonographic evaluation of the abdomen. FINDINGS: LIVER: Measures 20.7 cm. Normal echogenicity of the liver parenchyma. No mass. No intrahepatic bile duct dilatation. GALLBLADDER: The gallbladder appears mildly distended with cholelithiasis layering in the dependent portion as well as a bit of sludge. There is mild to moderate mural thickening appreciate diffusely with limited pericholecystic fluid. The gas seen within the gallbladder lumen in the prior CT is not identified currently however the general ultrasound patterns suggest an active cholecystitis. COMMON BILE DUCT: Measures 6.6 mm. No stones. No dilatation. PANCREAS: Unremarkable as visualized. No mass. No ductal dilatation. RIGHT KIDNEY: Measures 12.6cm. Normal echogenicity. No calculus, mass, or hydronephrosis. Benign lower pole simple cyst measures 4.7 cm. LEFT KIDNEY: Measures 11.4cm. Normal echogenicity. No calculus, mass, or hydronephrosis.Benign lower pole simple cyst measures 2.8 cm. SPLEEN: Normal in size and contour. No mass. AORTA: No aneurysmal dilatation. IVC: Unremarkable. OTHER FINDINGS: None. IMPRESSION: 1. Findings suspicious for acute cholecystitis. No biliary duct dilatation. No choledocholithiasis. Stop Please see discussion above. 2. Portions of the pancreas. 3. Bilateral benign renal cysts. .
--- NOTE | 2016-09-14 11:43 | PN ---
DATE: 09/14/2016 SUBJECTIVE: The patient has no complaints of any chest pain, no headache, she states her pain is controlled. PHYSICAL EXAMINATION: VITAL SIGNS: Temperature is 98.3, pulse of 85, blood pressure is 123/65, and respirations 18. HEENT: Anicteric sclerae, moist mucosa. NECK: No JVD, adenopathy, thyromegaly. CARDIOVASCULAR: S1, S2 regular, no murmurs, rubs or gallops. LUNGS: Clear to auscultation bilaterally. No wheezes, rales, or rhonchi. ABDOMEN: Bowel sounds are positive, soft, nontender, nondistended. EXTREMITIES: Lower extremity, no edema, 2+ pulses. Decreased range of motion secondary to pain and is being post surgical. LABORATORY DATA: Labs have been reviewed. Echocardiogram, shows no pericardial effusion, the EF is 55%, LV is normal size. CT of the abdomen and pelvis shows hepatomegaly without focal abnormalities, there is enlargement of the pancreas head, chololithiasis, there is lytic lesion at L3. ASSESSMENT: 1. Left hip fracture. 2. Hypertension. 3. Chololithiasis. 4. Acute anemia secondary to blood loss status post transfusion. 5. Status post right hip replacement. 6. Osteoporosis. 7. Lytic lesion of L3. 8. Old heal bilateral pelvic fractures. 9. Thyromegaly. PLAN: The patient is currently comfortable. She is being followed by GI and surgery. She is going to continued on IV fluids. She is on Dilaudid for pain. She is receiving Rocephin for antibiotics and Zosyn. An abdominal ultrasound has been ordered, HIDA scan has been ordered as well. Tristan Gutierrez MD
--- NOTE | 2016-09-14 11:53 | CON ---
DATE: 09/13/2016 ADDENDUM This patient was seen and evaluated earlier today. This is an addendum to the GI consultation report dictated by Eliana Mejia APN. The CT scan was reviewed. This 85-year-old patient admitted following a fall at home. The patient also was found to have right hip fracture. The patient also found to be anemic with hemoglobin 7.3. Does have gallstones and there is a prominence of the pancreatic head and also pericholecystic fluid, to rule out cholecystitis. On examination, the patient was comfortable. On examination, abdomen was soft. There was no obvious tenderness. The patient also found to have air in the gallbladder suggestive of possible biliary intervention and also *------* in the CAT scan. We would recommend: 1. Follow up of the hemoglobin and hematocrit. 2. Follow up of the LFT's. Gallstones appear asymptomatic. The patient has significant air in the gallbladder. The etiology is unclear. We would recommend to ultrasound scan of the abdomen and MRI of the abdomen with an MRCP to further evaluate the biliary air and also head of the pancreas. The plan is to follow. Thank you very much for allowing me to participate in the care of the patient. Camilo Servin MD
[2016-09-14] MEDS ORDERED: Propofol 10 mg/ml Inj (20 ML) ONE (12:09)
[2016-09-14] MEDS ORDERED: ePHEDrine 50 mg/ml Inj ONE (12:09)
[2016-09-14] MEDS ORDERED: Phenylephrine 10 mg/ml Inj ONE (12:10)
[2016-09-14] MEDS ORDERED: Succinylcholine 200 mg/10 ml Inj IV ONE (12:10)
[2016-09-14] MEDS ORDERED: Etomidate 20 mg/10ml Inj IV ONE (12:10)
[2016-09-14] MEDS ORDERED: Bupivacaine 0.5% Inj(30mL) ONE (12:19)
[2016-09-14] MEDS ORDERED: HYDROmorphone 0.5 mg/0.5 ml ISec IVP PRN (14:54)
[2016-09-14 15:48] LABS: HEMOGLOBIN 10.2 gm/dL (12.0-16.0); MEAN CELL VOLUME 84.8 fL (80.0-105.0); MEAN CORPUSCULAR HEMOGLOBIN 25.8 pg (25.0-35.0); MEAN CORPUSCULAR HGB CONC 30.4 g/dl (31.0-37.0); MEAN PLATELET VOLUME 8.9 fl (7.0-11.0); RBC 3.95 10^6/uL (3.5-6.1); RED CELL DISTRIBUTION WIDTH 15.3 % (11.5-14.5); WHITE BLOOD COUNT 11.2 10^3/ul (4.5-11.0)
[2016-09-14 16:03] LABS: BLOOD UREA NITROGEN 9 mg/dL (7-21); GFR AFRICAN-AMERICAN > 60; GFR NON-AFRICAN AMERICAN > 60
--- NOTE | 2016-09-14 17:10 | RAD ---
PROCEDURE: Left Hip X-ray Radiographs. HISTORY: s/p left hip surgery COMPARISON: Noncontrast pelvis CT 09/11/2016. FINDINGS: BONES: Prior femoral neck fracture been treated by a left partial replacement whisper with prosthetic device in appropriate position at the proximal left femur and superficial to the acetabulum. JOINTS: Partial joint replacement. SOFT TISSUES: Postoperative changes identified laterally, including skin marko and soft tissue emphysema. Soft tissue emphysema is also seen medially somewhat. OTHER FINDINGS: None. IMPRESSION: Status post left hip joint replacement with prosthetic device in good apparent position and limited postop changes seen in local soft tissues
--- NOTE | 2016-09-14 18:17 | PN ---
DATE: SUBJECTIVE: Seen and examined at the bedside earlier today. The daughter was there. The patient is n.p.o. waiting to go for hip surgery. The patient right now denies any nausea, vomiting or abdominal pain, but patient's daughter states that is because she has not had anything to eat, but at home she does complain of mainly right upper quadrant pain. She went for abdominal ultrasound this morning and that did show mildly distended gallbladder with cholelithiasis and a bit of sledge. There is some mural thickening, pattern suggest an active cholecystitis, common bile duct is 6 mm. No choledocholithiasis, the pancreas is okay. PHYSICAL EXAMINATION VITAL SIGNS: Temperature is 98.4, blood pressure 146/67, pulse 71, respirations 18, 97 nasal canula. LABORATORY DATA: WBC 8.7, H and H is 10.7 and 33.4, platelets 374. Sodium 132, potassium 3.8, BUN is 10, creatinine is 0.4, total bilirubin 0.9, AST 62, ALT 39, alkaline phosphatase is 140. ASSESSMENT AND PLAN: An 85-year-old female with left hip fracture and cholelithiasis, rule out acute cholecystitis, anemia, status post blood transfusion. She has history of recent right hip replacement. The patient had a CT scan done yesterday that showed and reports some lytic lesion in the L3 vertebral body without associated paravertebral abnormality, enlargement of the pancreatic head and atrophy of the body and tail of the pancreas and small bilateral pleural effusions and underlying atelectasis. PLAN: This current study has limitations in the absence of IV contrast given finding described. Plan is for hip surgery today. She will go for the HIDA scan after surgery, spoke to the nursing staff. The patient is on ceftriaxone n.p.o. Continue IV fluids for hydration. She is getting stool softeners. She is on Dilaudid for pain. Consider starting her on Flagyl. She is also being followed by surgery. I spoke to the daughter regarding the CT scan results regarding the pancreas and her anemia. For now she does not want any invasive procedures given the fact that she is going for a surgery today. She does not mind any noninvasive testing for now. We will continue to follow. The patient was seen and case discussed with Dr. Servin. QUANG Vazquez [facility] # [id number]
--- NOTE | 2016-09-15 03:05 | OP ---
PROCEDURE DATE: 09/14/2016 PREOPERATIVE DIAGNOSIS: Displaced subcapital fracture, left hip. POSTOPERATIVE DIAGNOSIS: Displaced subcapital fracture, left hip. PROCEDURE: Left hip bipolar prosthesis. SURGEON: Raymundo Che DO SOFTWARE PACKAGING ENGINEER: Chaparrita Seaman DPM. TYPE OF ANESTHESIA: General endotracheal tube. DESCRIPTION OF PROCEDURE: The patient was taken to the OR. We placed the patient in the lateral decubitus position with left hip up with general anesthesia endotracheal tube. We made a posterolateral incision of the left hip, going 3 inches above and 3 inches below the greater trochanter and fascia jared identified and split in line with the incision. External rotators released from the proximal femur and we opened up the capsule and took out the fracture femoral head, which measured 46 mm wide. We did appropriate excavation of the proximal femur after we took out the femoral head to allow us to do a rasping and reaming to fit a femoral stem of 16 mm wide x 160 mm long PressFit. Then, we put in a -3 neck to get the leg length just right and then once we put in the permanent prosthesis, we irrigated out the joint with normal saline Kantrex and reduction was stable both internal rotation, flexion, and extension and adduction. The wound was irrigated with normal saline Kantrex again and closed the layers with *------* 0 Vicryl for the deep layer and the external rotators 2-0 Vicryl subcutaneous tissue and skin with stainless steel marko. The patient was taken to the recovery room with abduction pillow in good condition. Raymundo Che DO
[2016-09-15] MEDS: HYDROmorphone 2 mg/ml ISec IVP PRN (06:20)
[2016-09-15 07:15] LABS: BASO # 0.02 K/mm3 (0.0-2.0); BASO % 0.2 % (0.0-3.0); EOS % 0.2 % (1.5-5.0); GRAN # 5.51 (1.4-6.5); GRAN % 65.7 % (50.0-68.0); HEMOGLOBIN 9.5 gm/dL (12.0-16.0); LYMPH # 1.9 (1.2-3.4); LYMPH % 22.2 % (22.0-35.0); MEAN CELL VOLUME 83.3 fL (80.0-105.0); MEAN CORPUSCULAR HEMOGLOBIN 25.5 pg (25.0-35.0); MEAN CORPUSCULAR HGB CONC 30.6 g/dl (31.0-37.0); MONO % 11.7 % (1.0-6.0); PLATELET COUNT 345 10^3/uL (120.0-450.0); RBC 3.72 10^6/uL (3.5-6.1); RED CELL DISTRIBUTION WIDTH 15.4 % (11.5-14.5); WHITE BLOOD COUNT 8.4 10^3/ul (4.5-11.0)
[2016-09-15 07:28] LABS: ALB/GLOB RATIO 1.1 (1.1-1.8); ALBUMIN 2.6 g/dL (3.0-4.8); ALT/SGPT 47 U/L (7-56); AST/SGOT 57 U/L (15-39); BLOOD UREA NITROGEN 7 mg/dL (7-21); CALCIUM 7.9 mg/dL (8.4-10.5); GFR AFRICAN-AMERICAN > 60; GFR NON-AFRICAN AMERICAN > 60; MAGNESIUM 1.7 mg/dL (1.7-2.2)
--- NOTE | 2016-09-15 08:25 | PN ---
DATE: 09/14/2016 REASON FOR CONSULTATION AND FOLLOWUP: Preop evaluation, risk stratification for hip surgery. SUBJECTIVE: This is an 85-year-old female with no significant past medical history except for fall and history of fractured hip, status post open reduction and internal fixation done six weeks ago, who fell down again and sustained fracture of the same hip and is scheduled for OR today. Denies any chest pain, shortness of breath, or any palpitation. PHYSICAL EXAMINATION: As follows; VITAL SIGNS: Temperature afebrile, heart rate 85, and blood pressure 129/62. HEENT: PERRLA. Extraocular muscles are intact. NECK: Supple. No carotid bruit or thyromegaly. HEART: S1 and S2 and regular. LUNGS: Chest clear to auscultation. ABDOMEN: Soft. EXTREMITIES: Clubbing and cyanosis negative. LABORATORY DATA: Blood workup as follows; WBC 8.7, hemoglobin 10.9, hematocrit 33.4, and platelets 374. Chemistry showed sodium 132, potassium 3.8, chloride 99, carbon dioxide 26, anion gap of 11, BUN 10, creatinine 0.4, magnesium 1.9, and phosphorous of 2.7. The patient had echocardiography done yesterday that showed a normal LV ejection fraction of 55%, trace aortic regurgitation, mild aortic sclerosis, [id number] tricuspid regurgitation, and systolic pressure of 55. No pericardial effusion. IMPRESSION: An 85-year-old female with no significant past medical history sustained fracture of the already fractured hip, who was internally fixed 6 weeks ago. Admitted to [facility] and needs to go the operating room. No recent history of angina, arrhythmia, or congestive heart failure. The patient is okay to go from *------* with underlying comorbidity, [id number] mitral and [id number] tricuspid regurgitation. Aortic sclerosis was mild. No significant aortic stenosis noted, trace aortic regurgitation. Once again, as mentioned above, the patient is cleared to go surgery [id number] risk with underlying comorbidity. No absolute contraindication for surgery. Thank you Dr. Che for taking care of Gabriella Zhu. We will follow with you. We will follow up postop lab. Mitch Streeter MD cc: Raymundo Che DO
--- NOTE | 2016-09-15 08:58 | CP.PCM.PN ---
Subjective - Date & Time of Evaluation Date of Evaluation: 09/15/16 Time of Evaluation: 08:53 - Subjective Subjective: General Surgery Progress Resident Abakasey Attending: Xavier HPI: Patient seen and examined at bedside. Doing well, no complaints at this time. S/p Hip replacement yesterday -Flatus/-BM. -F/N/V/chills/CP/SOB. Objective - Vital Signs/Intake and Output Vital Signs (last 24 hours): Temp Pulse Resp BP Pulse Ox 98.4 F 75 16 147/67 97 09/14/16 15:47 09/14/16 18:21 09/14/16 16:00 09/14/16 18:21 09/14/16 15:47 Intake and Output: 09/15/16 09/15/16 06:59 18:59 Intake Total 2000 Output Total 600 Balance 1400 - Medications Medications: Current Medications Alprazolam (Xanax) 0.25 mg PO HS ANSELMO PRN Reason: Protocol Stop: 09/18/16 22:01 Last Admin: 09/14/16 21:26 Dose: 0.25 mg Calcium/Vitamin D (Oscal-D 250 Mg-125 Units Tab) 1 tab PO DAILY [facility] Docusate Sodium (Colace) 200 mg PO DAILY [facility] Last Admin: 09/14/16 11:23 Dose: 200 mg Enoxaparin Sodium (Lovenox) 30 mg SC DAILY [facility] PRN Reason: Protocol Hydromorphone HCl (Dilaudid) 1 mg IVP Q4H PRN PRN Reason: Pain, moderate (4-7) Last Admin: 09/15/16 06:20 Dose: 1 mg Dextrose/Sodium Chloride (Dextrose 5%/0.45% Ns 1000 Ml) 1,000 mls @ 70 mls/hr IV .[id number] [facility] Last Admin: 09/14/16 07:37 Dose: 70 mls/hr Metoprolol Tartrate (Lopressor) 25 mg PO BID [facility] Last Admin: 09/14/16 18:21 Dose: 25 mg Vitamin D (Vitamin D 400 Intl Units Tab) 400 intlu PO DAILY [facility] - Labs Labs: 09/15/16 06:45 09/15/16 06:45 PT 11.6 Seconds (9.9-11.8) 09/11/16 12:41 INR 1.07 (0.93-1.08) 09/11/16 12:41 APTT 28.7 Seconds (23.7-30.8) 09/11/16 12:41 - Constitutional Appears: Well - Head Exam Head Exam: ATRAUMATIC - Eye Exam Eye Exam: EOMI - ENT Exam ENT Exam: Mucous Membranes Moist - Respiratory Exam Respiratory Exam: Clear to Ausculation Bilateral - Cardiovascular Exam Cardiovascular Exam: REGULAR RHYTHM - GI/Abdominal Exam GI & Abdominal Exam: Soft. absent: Distended, Guarding, Tenderness - Extremities Exam Additional comments: dressing present on L. 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 Xavier Gonzalez DO PGY-1
[2016-09-15] MEDS ORDERED: Dextrose 5%/0.45% NS 1,000 ML IV SCH (09:57)
[2016-09-15] MEDS: Enoxaparin 30 mg Syringe SC SCH ×2 (10:02→12:18)
[2016-09-15] MEDS: Calcium-Vit D 250 mg-125 Units Tab UD PO SCH (10:03)
[2016-09-15] MEDS: Cholecalciferol 400 Intl Units Tab PO SCH (10:03)
--- NOTE | 2016-09-15 13:15 | PN ---
DATE: 09/11/2016 SUBJECTIVE: Seen and examined at the bedside earlier today. She is status post left hip surgery. She is awake this morning and was eating some breakfast. She denies any nausea or vomiting. Does not have any abdominal pain. No reports of any acute overnight events. Reports she is comfortable. PHYSICAL EXAMINATION VITAL SIGNS: Temperature is 98.8, blood pressure is 123/54, pulse is 103, respiration is 22. HEENT: Sclera is anicteric NECK: Supple. CARDIAC: S1 and S2. LUNGS: Lung sounds with decreased breath sounds at the basis, but no rales or wheeze. ABDOMEN: With bowel sounds, soft. There was no tenderness. EXTREMITIES: Her left hip dressing is in place. She has positive pulses, sensation and warmth to both lower extremities. NEUROLOGIC: She is awake and alert. LABORATORY DATA: WBC 8.4, H and H is 9.5 and 31.0, platelets is 345. Sodium 132, potassium 3.7, BUN is 7, creatinine is 0.4, magnesium is 1.7, total bilirubin is 1.3, AST 57, ALT 47 and alkaline phosphatase is 157. She had TSH done at 0.52. ASSESSMENT: An 85-year-old female with left hip fracture, status post bipolar hip prosthesis. Had history of cholelithiasis rule out acute cholecystitis. She is also with anemia, status post blood transfusion. She also has a history of a right hip placement. The patient did have a CT scan. The patient did have a CAT scan done and shows a lytic lesion in the L3 vertebral body and there was an enlargement of the pancreatic head and atrophy of the body of the tail. The pancreas has bilateral pleural effusion. PLAN: The patient is still pending the HIDA scan. Continue IV fluids for hydration. She is on stool softener and on Lovenox subcutaneous. Spoke to nursing staff who will find out when the patient will go for HIDA scan. We will change her to diet to a clear liquid for now until after the HIDA. The patient has also pending evaluation with oncology for lytic lesions noted on CAT scan. The patient was seen and case discussed with Dr. Servin. QUANG Vazquez [facility] # [id number]
--- NOTE | 2016-09-15 14:41 | PN ---
DATE: 09/15/2016 First day postop. LOCATION: Room 562, bed 2. The patient underwent surgery of her left subcapital fracture displaced having a bipolar hip prosthesis done and today she looks more alert, less pain, hemoglobin is 9.5, hematocrit 31% so we will start her on physical therapy and still do serial H&Hs for a couple of days. In the meantime, we will get her prepared to go to subacute rehab in a couple of days. I will follow her closely with the medical doctors. Raymundo Che DO
--- NOTE | 2016-09-15 14:55 | PN ---
SUBJECTIVE: The patient has no headaches; no dizziness; no nausea; no vomiting. PHYSICAL EXAMINATION: VITAL SIGNS: Temperature is 98.4, pulse is 75, blood pressure is 147/67, respirations 16. HEENT: Anicteric sclerae. Moist mucosa. NECK: No JVD, adenopathy, or thyromegaly. CARDIOVASCULAR: S1 and S2 regular. No murmurs, rubs, or gallops. ABDOMEN: Bowel sounds are positive. Soft, nontender and nondistended. EXTREMITIES: Lower extremities; there is no edema; 2+ pulses. LABORATORY DATA: White count of 11.2, hemoglobin of 10.2, and creatinine is 0.4. ASSESSMENT: 1. Left hip fracture, status post open reduction and internal fixation. 2. Hypertension. 3. Chololithiasis. 4. Acute anemia secondary to blood loss, status post transfusion of packed red blood cells. 5. Osteoporosis. 6. Status post right hip replacement. 7. Lytic lesion in L3. 8. Old healed bilateral pelvic fracture. PLAN: The patient is currently comfortable. She is on IV fluids. I will discontinue the patient's IV fluids. The patient is getting Colace for constipation, is going to continue with Lovenox for DVT prophylaxis. She is on metoprolol twice a day. The patient is receiving Xanax as needed. She is on Rocephin for antibiotics. She does not have any signs of infection. I will discontinue her antibiotics. I did speak to Dr. Che yesterday and I will get Dr. Hui to evaluate the patient. Tristan Gutierrez MD
[2016-09-15 15:02] LABS: BASO # 0.01 K/mm3 (0.0-2.0); BASO % 0.1 % (0.0-3.0); EOS % 0.2 % (1.5-5.0); GRAN # 6.83 (1.4-6.5); GRAN % 66.4 % (50.0-68.0); HEMOGLOBIN 9.2 gm/dL (12.0-16.0); LYMPH # 2.3 (1.2-3.4); LYMPH % 22.7 % (22.0-35.0); MEAN CELL VOLUME 82.9 fL (80.0-105.0); MEAN CORPUSCULAR HEMOGLOBIN 25.8 pg (25.0-35.0); MEAN CORPUSCULAR HGB CONC 31.2 g/dl (31.0-37.0); MONO # 1.1 (0.1-0.6); MONO % 10.6 % (1.0-6.0); PLATELET COUNT 321 10^3/uL (120.0-450.0); RBC 3.56 10^6/uL (3.5-6.1); RED CELL DISTRIBUTION WIDTH 15.5 % (11.5-14.5); WHITE BLOOD COUNT 10.3 10^3/ul (4.5-11.0)
[2016-09-15] MEDS ORDERED: Potassium Chloride 20 mEq ER Tab PO ONE (16:06)
[2016-09-15] MEDS: Magnesium Oxide 400 mg Tab UD PO SCH (17:45)
--- NOTE | 2016-09-15 22:52 | CP.PCM.CON ---
History of Present Illness - History of Present Illness History of Present Illness: Pt. is a 85 year old female admitted after fall at home. She had hip surgery today. CT abdomen, pelvis did not show any mass lesion. Single Lytic lesion at L3 level. She denies pain prior to fall. No history of weight loss. She also has anemia. Renal functions normal. Review of Systems - Constitutional Constitutional: As Per HPI, Malaise, Weakness - EENT Eyes: absent: As Per HPI, Blind Spots, Blurred Vision, Change in Vision, Decreased Night Vision, Diplopia, Discharge, Dry Eye, Exophthalmos, Floaters, Irritation, Itchy Eyes, Loss of Peripheral Vision, Pain, Photophobia, Requires Corrective Lenses, Sees Flashes, Spots in Vision, Tunnel Vision, Other Visual Disturbances, Loss of Vision, Other Ears: absent: As Per HPI, Decreased Hearing, Ear Discharge, Ear Pain, Tinnitus, Abnormal Hearing, Disequilibrium, Dizziness, Other Nose/Mouth/Throat: absent: As Per HPI, Epistaxis, Nasal Congestion, Nasal Discharge, Nasal Obstruction, Nasal Trauma, Nose Pain, Post Nasal Drip, Sinus Pain, Sinus Pressure, Bleeding Gums, Change in Voice, Dental Pain, Dry Mouth, Dysphagia, Halitosis, Hoarsness, Lip Swelling, Mouth Lesions, Mouth Pain, Odynophagia, Sore Throat, Throat Swelling, Tongue Swelling, Facial Pain, Neck Pain, Neck Mass, Other - Breasts Breasts: absent: As Per HPI, Change in Shape, Mass, Pain, Nipple Discharge, Nipple Inversion, Skin Changes, Swelling, Other - Cardiovascular Cardiovascular: absent: As Per HPI, Acrocyanosis, Chest Pain, Chest Pain at Rest , Chest Pain with Activity, Claudication, Diaphoresis, Dyspnea, Dyspnea on Exertion, Edema, Irregular Heart Rhythm, Pain Radiating to Arm/Neck/Jaw, Leg Edema, Leg Ulcers, Lightheadedness, Orthopnea, Palpitations, Paroxysmal Nocturnal Dyspnea, Pedal Edema, Radiating Pain, Rapid Heart Rate, Slow Heart Rate, Syncope, Other - Respiratory Respiratory: absent: As Per HPI, Cough, Dyspnea, Hemoptysis, Dyspnea on Exertion , Wheezing, Snoring, Stridor, Pain on Inspiration, Chest Congestion, Excessive Mucous Production, Change in Mucous Color, Pain with Coughing, Other - Gastrointestinal Gastrointestinal: absent: As Per HPI, Abdominal Pain, Belching, Bloating, Change in Bowel Habits, Change in Stool Character, Coffee Ground Emesis, Constipation, Cramping, Diarrhea, Dyspepsia, Dysphagia, Early Satiety, Excessive Flatus, Fecal Incontinence, Heartburn, Hematemesis, Hematochezia, Loose Stools, Melena, Nausea, Odynophagia, Temesmus, Vomiting, Other - Genitourinary Genitourinary: absent: As Per HPI, Change in Urinary Stream, Difficulty Urinating, Dysuria, Flank Pain, Hematuria, Pyuria, Nocturia, Urinary Incontinence, Urinary Frequency, Urinary Hesitance, Urinary Urgency, Voiding Freq/Small Amts, Freq UTI, Hx Renal/Bladder Calculi, Hx /Renal Surgery, Bladder Distension, Other - Musculoskeletal Additional comments: fracture left hip - Integumentary Integumentary: absent: As Per HPI, Acne, Alopecia, Bleeding Lesions, Change in Hair, Change in Nails, Change in Pigmentation, Changing Lesions, Dry Skin, Erythema, Furuncle, Hirsutism, Lesions, New Lesions, Non-Healing Lesions, Photosensitivity, Pruritus, Rash, Skin Pain, Skin Ulcer, Sores, Striae, Swelling , Unusual Bruising, Wounds, Jaundice, Other - Neurological Neurological: absent: As Per HPI, Abnormal Gait, Abnormal Hearing, Abnormal Movements, Abnormal Speech, Behavioral Changes, Burning Sensations, Confusion, Convulsions, Disequilibrium, Dizziness, Numbness, Focal Weakness, Frequent Falls , Headaches, Lack of Coordination, Loss of Vision, Memory Loss, Paresthesias, Radicular Pain, Restless Legs, Sensory Deficit, Syncope, Tingling, Tremor, Vertigo, Weakness, Other Visual Disturbances, Other - Endocrine Endocrine: absent: As Per HPI, Change in Body Appearance, Change in Libido, Cold Intolorance, Deepening of Voice, Excessive Sweating, Fatigue, Flushing, Heat Intolorance, Increase in Ring/Shoe/Hat Size, Palpitations, Polydipsia, Polyphagia, Polyuria, Other - Hematologic/Lymphatic Hematologic: As Per HPI Past Patient History - Infectious Disease Hx of Infectious Diseases: None - Tetanus Immunizations Tetanus Immunization: Unknown - Past Social History Smoking Status: Current Some Days Smoker Alcohol: None Drugs: Denies - CARDIAC Hx Cardiac Disorders: No - PULMONARY Hx Respiratory Disorders: No - NEUROLOGICAL Hx Neurological Disorder: Yes Hx Dementia: Yes - HEENT Hx HEENT Problems: No - RENAL Hx Chronic Kidney Disease: No - ENDOCRINE/METABOLIC Hx Endocrine Disorders: No - HEMATOLOGICAL/ONCOLOGICAL Hx Blood Transfusions: Yes Hx Blood Transfusion Reaction: No - INTEGUMENTARY Hx Dermatological Problems: No - MUSCULOSKELETAL/RHEUMATOLOGICAL Hx Musculoskeletal Disorders: Yes Hx Arthritis: Yes Hx Back Pain: Yes Hx Falls: Yes Hx Fractures: Yes - GASTROINTESTINAL Hx Gastrointestinal Disorders: Yes - GENITOURINARY/GYNECOLOGICAL Hx Genitourinary Disorders: Yes Hx Incontinence: Yes - PSYCHIATRIC Hx Psychophysiologic Disorder: No Hx Emotional Abuse: No Hx Physical Abuse: No Hx Substance Use: No - SURGICAL HISTORY Hx Surgeries: Yes (Hip replacement) - ANESTHESIA Hx Anesthesia Reactions: No Hx Malignant Hyperthermia: No Meds Allergies/Adverse Reactions: Allergies Allergy/AdvReac Type Severity Reaction Status Date / Time No Known Allergies Allergy Verified 09/11/16 11:52 - Medications Medications: Current Medications Alprazolam (Xanax) 0.25 mg PO HS [facility] PRN Reason: Protocol Stop: 09/18/16 22:01 Last Admin: 09/15/16 21:35 Dose: 0.25 mg Calcium/Vitamin D (Oscal-D 250 Mg-125 Units Tab) 1 tab PO DAILY [facility] Last Admin: 09/15/16 10:03 Dose: 1 tab Docusate Sodium (Colace) 200 mg PO DAILY [facility] Last Admin: 09/15/16 10:03 Dose: 200 mg Enoxaparin Sodium (Lovenox) 30 mg SC DAILY [facility] PRN Reason: Protocol Last Admin: 09/15/16 12:18 Dose: Not Given Dextrose/Sodium Chloride (Dextrose 5%/0.45% Ns 1000 Ml) 1,000 mls @ 40 mls/hr IV .Q24H [facility] Last Admin: 09/15/16 10:10 Dose: 40 mls/hr Magnesium Oxide (Mag-Ox) 400 mg PO BID [facility] Stop: 09/16/16 23:59 Last Admin: 09/15/16 17:45 Dose: 400 mg Metoprolol Tartrate (Lopressor) 25 mg PO BID [facility] Last Admin: 09/15/16 17:45 Dose: 25 mg Vitamin D (Vitamin D 400 Intl Units Tab) 400 intlu PO DAILY [facility] Last Admin: 09/15/16 10:03 Dose: 400 intlu Physical Exam - Constitutional Appears: Chronically Ill - Head Exam Head Exam: ATRAUMATIC, NORMAL INSPECTION, NORMOCEPHALIC - Eye Exam Eye Exam: Normal appearance Pupil Exam: NORMAL ACCOMODATION - ENT Exam ENT Exam: Mucous Membranes Moist - Neck Exam Neck exam: Positive for: Normal Inspection - Respiratory Exam Respiratory Exam: Clear to Auscultation Bilateral, NORMAL BREATHING PATTERN - Cardiovascular Exam Cardiovascular Exam: REGULAR RHYTHM, +S1, +S2 - GI/Abdominal Exam GI & Abdominal Exam: Normal Bowel Sounds - Extremities Exam Extremities exam: Positive for: normal inspection - Back Exam Back exam: NORMAL INSPECTION - Neurological Exam Neurological exam: CN II-XII Intact, Oriented x3 - Skin Skin Exam: Normal Color, Warm Results - Vital Signs Recent Vital Signs: Last Vital Signs Temp 98.8 F 09/15/16 07:30 Pulse 103 H 09/15/16 10:03 Resp 22 09/15/16 07:30 BP 123/54 L 09/15/16 10:03 Pulse Ox 93 L 09/15/16 07:30 - Labs Result Diagrams: 09/15/16 14:40 09/15/16 06:45 Labs: Laboratory Results - last 24 hr 09/15/16 09/15/16 09/15/16 06:45 06:45 07:00 WBC 8.4 D RBC 3.72 Hgb 9.5 L Hct 31.0 L MCV 83.3 MCH 25.5 MCHC 30.6 L RDW 15.4 H Plt Count 345 MPV 9.0 Gran % 65.7 Lymph % (Auto) 22.2 [place] % (Auto) 11.7 H Eos % (Auto) 0.2 L Baso % (Auto) 0.2 Gran # 5.51 Lymph # 1.9 [place] # 1.0 H Eos # 0.0 Baso # 0.02 Sodium 132 Potassium 3.7 Chloride 98 Carbon Dioxide 26 Anion Gap 12 BUN 7 Creatinine 0.4 L Est GFR ( Amer) > 60 Est GFR (Non-Af Amer) > 60 Random Glucose 120 H Calcium 7.9 L Magnesium 1.7 Total Bilirubin 1.3 AST 57 H ALT 47 Alkaline Phosphatase 157 H Total Protein 4.8 L Albumin 2.6 L Globulin 2.3 Albumin/Globulin Ratio 1.1 TSH 3rd Generation 0.52 09/15/16 14:40 WBC 10.3 D RBC 3.56 Hgb 9.2 L Hct 29.5 L MCV 82.9 MCH 25.8 MCHC 31.2 RDW 15.5 H Plt Count 321 MPV 9.0 Gran % 66.4 Lymph % (Auto) 22.7 [place] % (Auto) 10.6 H Eos % (Auto) 0.2 L Baso % (Auto) 0.1 Gran # 6.83 H Lymph # 2.3 [place] # 1.1 H Eos # 0.0 Baso # 0.01 Sodium Potassium Chloride Carbon Dioxide Anion Gap BUN Creatinine Est GFR ( Amer) Est GFR (Non-Af Amer) Random Glucose Calcium Magnesium Total Bilirubin AST ALT Alkaline Phosphatase Total Protein Albumin Globulin Albumin/Globulin Ratio TSH 3rd Generation Assessment & Plan - Assessment and Plan (Free Text) Assessment: 1. Single lytic lesion at L3 . SPEP, IF, light chain assay to rule out multiple myeloma. She will need bone survey once stable to evaluate for lytic lesions. No obvious malignancy. 2. Anemia : will do work up- iron studies, B12, folate, CEA. 3. Fracture left hip : s/p surgery today. 4. Continue DVT prophylaxis lovenox 30 mg SQ daily. Thank you Dr. Gutierrez for allowing us to participate in her care.
[2016-09-16 07:28] LABS: ALBUMIN 2.5 g/dL (3.0-4.8); ALT/SGPT 33 U/L (7-56); AST/SGOT 35 U/L (15-39); BLOOD UREA NITROGEN 9 mg/dL (7-21); GFR AFRICAN-AMERICAN > 60; GFR NON-AFRICAN AMERICAN > 60; MAGNESIUM 1.9 mg/dL (1.7-2.2)
[2016-09-16 07:29] LABS: ALB/GLOB RATIO 1.1 (1.1-1.8)
[2016-09-16 07:35] LABS: CALCIUM 8.1 mg/dL (8.4-10.5)
[2016-09-16 08:05] LABS: BASO # 0.08 K/mm3 (0.0-2.0); BASO % 0.8 % (0.0-3.0); EOS % 0.1 % (1.5-5.0); GRAN # 6.78 (1.4-6.5); GRAN % 64.7 % (50.0-68.0); HEMOGLOBIN 8.9 gm/dL (12.0-16.0); LYMPH # 2.6 (1.2-3.4); LYMPH % 24.9 % (22.0-35.0); MEAN CELL VOLUME 84.8 fL (80.0-105.0); MEAN CORPUSCULAR HEMOGLOBIN 27.1 pg (25.0-35.0); MEAN PLATELET VOLUME 9.6 fl (7.0-11.0); MONO % 9.5 % (1.0-6.0); PLATELET COUNT 333 10^3/uL (120.0-450.0); RBC 3.28 10^6/uL (3.5-6.1); RED CELL DISTRIBUTION WIDTH 15.7 % (11.5-14.5); WHITE BLOOD COUNT 10.5 10^3/ul (4.5-11.0)
--- NOTE | 2016-09-16 08:12 | CP.PCM.PN ---
Subjective - Date & Time of Evaluation Date of Evaluation: 09/16/16 Time of Evaluation: 08:08 - Subjective Subjective: General Surgery Note Resident: Carlos Attending: Xavier HPI: Patient seen and examined at bedside. Doing well. No complaints at this time. Pt. states she is hungry. Denies N/V/F/CP/SOB Objective - Vital Signs/Intake and Output Vital Signs (last 24 hours): Temp Pulse Resp BP Pulse Ox 98.8 F 103 H 22 123/54 L 93 L 09/15/16 07:30 09/15/16 10:03 09/15/16 07:30 09/15/16 10:03 09/15/16 07:30 Intake and Output: 09/16/16 09/16/16 06:59 18:59 Intake Total 1320 Output Total 100 Balance 1220 - Medications Medications: Current Medications Alprazolam (Xanax) 0.25 mg PO HS [facility] PRN Reason: Protocol Stop: 09/18/16 22:01 Last Admin: 09/15/16 21:35 Dose: 0.25 mg Calcium/Vitamin D (Oscal-D 250 Mg-125 Units Tab) 1 tab PO DAILY [facility] Last Admin: 09/15/16 10:03 Dose: 1 tab Docusate Sodium (Colace) 200 mg PO DAILY [facility] Last Admin: 09/15/16 10:03 Dose: 200 mg Enoxaparin Sodium (Lovenox) 30 mg SC DAILY [facility] PRN Reason: Protocol Last Admin: 09/15/16 12:18 Dose: Not Given Dextrose/Sodium Chloride (Dextrose 5%/0.45% Ns 1000 Ml) 1,000 mls @ 40 mls/hr IV .Q24H [facility] Last Admin: 09/15/16 10:10 Dose: 40 mls/hr Magnesium Oxide (Mag-Ox) 400 mg PO BID [facility] Stop: 09/16/16 23:59 Last Admin: 09/15/16 17:45 Dose: 400 mg Metoprolol Tartrate (Lopressor) 25 mg PO BID [facility] Last Admin: 09/15/16 17:45 Dose: 25 mg Vitamin D (Vitamin D 400 Intl Units Tab) 400 intlu PO DAILY [facility] Last Admin: 09/15/16 10:03 Dose: 400 intlu - Labs Labs: 09/16/16 07:30 09/16/16 06:40 PT 11.6 Seconds (9.9-11.8) 09/11/16 12:41 INR 1.07 (0.93-1.08) 09/11/16 12:41 APTT 28.7 Seconds (23.7-30.8) 09/11/16 12:41 - Constitutional Appears: Well - Head Exam Head Exam: NORMAL INSPECTION - Eye Exam Eye Exam: EOMI - ENT Exam ENT Exam: Mucous Membranes Moist - Respiratory Exam Respiratory Exam: Clear to Ausculation Bilateral - Cardiovascular Exam Cardiovascular Exam: REGULAR RHYTHM - GI/Abdominal Exam GI & Abdominal Exam: Guarding (RUQ), Soft, Tenderness (mild, RUQ). absent: Distended, Firm - Extremities Exam Additional comments: dressing on L. Hip from Hip replacement - Neurological Exam Neurological Exam: Alert, Awake, Oriented x3 Assessment and Plan - Assessment and Plan (Free Text) Assessment: 85 y/o WF w/cholelithiasis * Waiting on HIDA reading * Surgery possible depending on results * Pain control * Will Discuss with Dr. Xavier Gonzalez DO PGY-1
[2016-09-16 08:41] VITALS: RESP 18
[2016-09-16 09:24] LABS: TOTAL IRON BINDING CAPACITY 228 ug/dL (265-497)
[2016-09-16 09:58] LABS: IRON < 10 ug/dL (45-180)
[2016-09-16] MEDS: Enoxaparin 30 mg Syringe SC SCH (10:16)
[2016-09-16] MEDS: Cholecalciferol 400 Intl Units Tab PO SCH (10:22)
[2016-09-16] MEDS: Magnesium Oxide 400 mg Tab UD PO SCH ×2 (10:22→17:51)
[2016-09-16] MEDS: Calcium-Vit D 250 mg-125 Units Tab UD PO SCH (10:22)
--- NOTE | 2016-09-16 10:51 | NM ---
PROCEDURE: Nuclear Medicine Hepatobiliary Scan HISTORY: acute adama COMPARISON: And pelvis CT dated 09/13/2016. TECHNIQUE: 5.0 mCi of technetium 99m Mebrofenin was administered intravenously. Planar images of the abdomen were obtained at 5 min intervals to 60 mins. Delayed images were also obtained. FINDINGS: LIVER: Timely and homogenous uptake. COMMON BILE DUCT: identified at 15 mins. GALLBLADDER: Not felt to be definitively shown. The duodenum appears cyst filled with radioisotope at 15-45 minutes with activity diminishing at 60 minutes. The patient was not administered cholecystokinin and therefore this diminished activity is 60 minutes in this area is not felt to represent the gallbladder. Further, the gallbladder is not identified in static images performed at 4 hours post isotope administration. SMALL BOWEL: Identified at 30 minutes mins. IMPRESSION: Pattern suspicious for acute cystic duct obstruction. No nuclear evidence to suggest common bile obstruction. Further clinical correlation is advised.
--- NOTE | 2016-09-16 11:15 | PN ---
DATE: 09/15/2016 BRIEF CLINICAL HISTORY: This is an 85-year-old female who fell down, sustained a fracture of already internal fixated hip. Yesterday, the patient went to left hip OR internal fixation, lying flat. She denies any chest pain, shortness of breath. No palpitation. PHYSICAL EXAMINATION: As follows: VITAL SIGNS: Temperature afebrile, heart rate 75 and blood pressure 142/67. HEENT: PERRLA. Extraocular muscles intact. NECK: Supple. No carotid bruit. No thyromegaly. CARDIOPULMONARY: S1 and S2, regular. CHEST: Clear to auscultation. ABDOMEN: Soft. EXTREMITIES: No clubbing, cyanosis. LABORATORY DATA: Negative blood workup as follows. WBC 10.3, hemoglobin 9.8, hematocrit 29.5 and platelet count 321. Chemistry shows sodium 130, potassium 3.3, chloride 98, bicarbonate 26, anion gap of 4, BUN is 7, creatinine is 0.4, magnesium is 1.7. IMPRESSION: Lower limit normal magnesium, lower limit normal potassium, anemia postop, status post open reduction and internal fixation. The patient had an echocardiogram as a preop, that showed ejection fraction normal 55% trace aortic regurgitation, aortic sclerosis with some mild aortic stenosis, [id number] mitral regurgitation, [id number] tricuspid regurgitation, ejection fraction is 55. RECOMMENDATION: Supplement magnesium, supplement potassium. Monitor H and H. If it goes below 8, consider packed RBC transfusion. Continue low-dose beta saima, metoprolol 25 mg b.i.d. Continue DVT prophylaxis. We will follow with you. Thank you Dr. Che for taking care of the Audra Quiroz. Mitch Streeter MD
--- NOTE | 2016-09-16 11:21 | CP.PCM.PN ---
<Eliana Mejia - Last Filed: 09/16/16 14:25> Subjective - Date & Time of Evaluation Date of Evaluation: 09/16/16 Time of Evaluation: 08:40 - Subjective Subjective: S&E at bedside, chart reviewed. No acute overnight events, tolerating the clear liquid, had HIDA scan yesterday, reports suspicious for acute cystic duct obstruction, no nuclear evidence of common bile obstruction. Patient denies, SOB , CP, N/V or abdominal pain. No reports of BM . Objective - Vital Signs/Intake and Output Vital Signs (last 24 hours): Temp Pulse Resp BP Pulse Ox 98.1 F 95 H 18 104/43 L 94 L 09/16/16 07:30 09/16/16 07:30 09/16/16 07:30 09/16/16 07:30 09/16/16 07:30 Intake and Output: 09/16/16 09/16/16 06:59 18:59 Intake Total 1320 Output Total 100 Balance 1220 - Medications Medications: Current Medications Alprazolam (Xanax) 0.25 mg PO HS [facility] PRN Reason: Protocol Stop: 09/18/16 22:01 Last Admin: 09/15/16 21:35 Dose: 0.25 mg Calcium/Vitamin D (Oscal-D 250 Mg-125 Units Tab) 1 tab PO DAILY [facility] Last Admin: 09/15/16 10:03 Dose: 1 tab Docusate Sodium (Colace) 200 mg PO DAILY [facility] Last Admin: 09/15/16 10:03 Dose: 200 mg Enoxaparin Sodium (Lovenox) 30 mg SC DAILY [facility] PRN Reason: Protocol Last Admin: 09/15/16 12:18 Dose: Not Given Dextrose/Sodium Chloride (Dextrose 5%/0.45% Ns 1000 Ml) 1,000 mls @ 40 mls/hr IV .Q24H [facility] Last Admin: 09/15/16 10:10 Dose: 40 mls/hr Magnesium Oxide (Mag-Ox) 400 mg PO BID [facility] Stop: 09/16/16 23:59 Last Admin: 09/15/16 17:45 Dose: 400 mg Metoprolol Tartrate (Lopressor) 25 mg PO BID [facility] Last Admin: 09/15/16 17:45 Dose: 25 mg Vitamin D (Vitamin D 400 Intl Units Tab) 400 intlu PO DAILY [facility] Last Admin: 09/15/16 10:03 Dose: 400 intlu - Labs Labs: 09/16/16 07:30 09/16/16 06:40 PT 11.6 Seconds (9.9-11.8) 09/11/16 12:41 INR 1.07 (0.93-1.08) 09/11/16 12:41 APTT 28.7 Seconds (23.7-30.8) 09/11/16 12:41 - Constitutional Appears: No Acute Distress - Head Exam Head Exam: NORMOCEPHALIC - Eye Exam Eye Exam: Normal appearance. absent: Scleral icterus - ENT Exam ENT Exam: Mucous Membranes Moist - Neck Exam Neck Exam: Normal Inspection - Respiratory Exam Respiratory Exam: Decreased Breath Sounds, NORMAL BREATHING PATTERN. absent: Rales, Wheezes, Respiratory Distress - GI/Abdominal Exam GI & Abdominal Exam: Soft, Normal Bowel Sounds. 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 spoke to MRI as per protocol there is 6 week wait prior to considering having MRI Seen and case discussed with Dr. Servin. <Camilo Servin V - Last Filed: 09/16/16 22:00> Objective - Vital Signs/Intake and Output Vital Signs (last 24 hours): Temp Pulse Resp BP Pulse Ox 98.0 F 80 18 109/58 L 98 09/16/16 16:40 09/16/16 17:50 09/16/16 16:40 09/16/16 17:50 09/16/16 16:40 Intake and Output: 09/16/16 09/17/16 18:59 06:59 Intake Total 540 Balance 540 - Medications Medications: Current Medications Alprazolam (Xanax) 0.25 mg PO HS [facility] PRN Reason: Protocol Stop: 09/18/16 22:01 Last Admin: 09/15/16 21:35 Dose: 0.25 mg Calcium/Vitamin D (Oscal-D 250 Mg-125 Units Tab) 1 tab PO DAILY [facility] Last Admin: 09/16/16 10:22 Dose: 1 tab Docusate Sodium (Colace) 200 mg PO DAILY [facility] Last Admin: 09/16/16 10:17 Dose: 200 mg Enoxaparin Sodium (Lovenox) 30 mg SC DAILY [facility] PRN Reason: Protocol Last Admin: 09/16/16 10:16 Dose: 30 mg Ferrous Sulfate (Feosol) 324 mg PO TID [facility] Last Admin: 09/16/16 18:40 Dose: Not Given Dextrose/Sodium Chloride (Dextrose 5%/0.45% Ns 1000 Ml) 1,000 mls @ 40 mls/hr IV .Q24H [facility] Last Admin: 09/15/16 10:10 Dose: 40 mls/hr Magnesium Oxide (Mag-Ox) 400 mg PO BID [facility] Stop: 09/16/16 23:59 Last Admin: 09/16/16 17:51 Dose: Not Given Metoprolol Tartrate (Lopressor) 25 mg PO BID [facility] Last Admin: 09/16/16 17:50 Dose: Not Given Multivitamins/Minerals (Therapeutic-M Tab) 1 tab PO 0800 [facility] Tramadol HCl (Ultram) 50 mg PO TID PRN PRN Reason: Pain, moderate (4-7) Last Admin: 09/16/16 18:37 Dose: 50 mg Vitamin D (Vitamin D 400 Intl Units Tab) 400 intlu PO DAILY [facility] Last Admin: 09/16/16 10:22 Dose: 400 intlu - Labs Labs: 09/16/16 07:30 09/16/16 06:40 PT 11.6 Seconds (9.9-11.8) 09/11/16 12:41 INR 1.07 (0.93-1.08) 09/11/16 12:41 APTT 28.7 Seconds (23.7-30.8) 09/11/16 12:41 Attending/Attestation - Attestation I have personally seen and examined this patient.: Yes I have fully participated in the care of the patient.: Yes I have reviewed all pertinent clinical information, including history, physical exam and plan: Yes Notes (Text): this
--- NOTE | 2016-09-16 13:25 | PN ---
DATE: 09/16/2016 SUBJECTIVE: The patient has had no complaint of any chest pain. No shortness of breath or headache. PHYSICAL EXAMINATION GENERAL: Patient lying in bed comfortable. VITAL SIGNS: Temperature is 98.1, pulse of 95, blood pressure 104/43, respirations 18. HEENT: Moist mucosa. No facial asymmetry. NECK: No JVD, adenopathy or thyromegaly. CARDIOVASCULAR: S1, S2, regular. No murmurs, rubs or gallops. LUNGS: Clear to auscultation bilaterally. No wheezes, rales or rhonchi. ABDOMEN: Bowel sounds are positive. Soft, nontender, and nondistended. EXTREMITIES: Lower extremity, no edema. LABORATORY DATA: Hemoglobin 8.9. ASSESSMENT: 1. Left hip fracture, status post open reduction and internal fixation. 2. Hypertension. 3. Cholelithiasis. 4. Acute anemia secondary to blood loss. 5. Lytic lesion of L3. 6. Old healed bilateral pelvic fracture. 7. Osteoporosis. PLAN: The patient is currently comfortable. She is waiting to go to subacute rehab at [facility]. The patient is going to have SPEP and immunofluorescence done by Dr. Angelo. The patient is on Colace. I have placed her on calcium. She is on Lovenox for DVT prophylaxis. She is receiving Xanax as needed. I will placed her on regular diet. Tristan Gutierrez MD
[2016-09-16 16:41] VITALS: BP 109/58; PULSE 80; TEMP 98; O2SAT 98
--- NOTE | 2016-09-16 23:01 | PN ---
DATE: 09/16/2016 REASON FOR CONSULTATION: Postop followup for hip surgery OR internal fixation. SUBJECTIVE: The patient denies any chest pain, shortness of breath. She is sitting on the chair. PHYSICAL EXAMINATION: VITAL SIGNS: Temperature afebrile, hear rate 95, blood pressure 104/43. HEENT: PERRLA. Extraocular muscles intact. NECK: Supple. No carotid bruits or thyromegaly. CHEST: Clear to auscultation. HEART: S1 and S2 regular. ABDOMEN: Soft. EXTREMITIES: Clubbing and cyanosis negative. MEDICATION: Multivitamin and iron preparation. LABORATORY DATA: Blood work up is as follows; WBC 10.5, hemoglobin 8.9, hematocrit 27.8, platelet count 333. Chemistries showed sodium 130, potassium 4.0, chloride 90, carbon dioxide 26, anion gap of 10, BUN 9, creatinine 0.4. IMPRESSION: An 85-year-old female with past medical history of hypertension, history of open reduction and internal fixation right hip, who fell down and sustained fracture of the previously fractured and internally fixated in the past, refractured status post redo surgery of hip and now sitting in a chair. Denies any chest pain, shortness of breath, any palpitation. The patient's echocardiograph is done that shows ejection fracture of 55%, trace aortic regurgitation, aortic sclerosis with mild aortic stenosis, [id number] mitral regurgitation, [id number] tricuspid regurgitation, ejection fraction is 55. RECOMMENDATIONS: Electrolytes as needed. Monitor H and H. If it goes below 8, consider RBC transfusion. Continue low-dose beta saima. We will follow with you. We will add CBC for tomorrow for blood. Thank you Dr. Deng and Dr. Che for the opportunity in taking care of the patient, Gabriella Zhu. We will follow with you. Mitch Streeter MD
[2016-09-17] MEDS ORDERED: Multivitamin With Minerals Tab PO SCH (08:00)
== END 2016-09-16 21:00 | disposition designated cancer center or children's hospital (05) | DRG 470 ==
LOC: ED 11:43 → ERH 13:19 → 2RSO 15:42 → 5RNO 09-13 11:21
PROVIDERS: ADMIT Internal Medicine Nephrology; ATTEND Internal Medicine Nephrology
PROC: 30233N1 Transfusion of Nonautologous Red Blood Cells into Peripheral Vein, Percutaneous Approach (ICD-10-PCS; 2016-09-12)
PROC: 0SRS0JZ Replacement of Left Hip Joint, Femoral Surface with Synthetic Substitute, Open Approach (ICD-10-PCS; principal; 2016-09-14 12:00)
DX: S72.012A Unspecified intracapsular fracture of left femur, initial encounter for closed fracture (principal); J90 Pleural effusion, not elsewhere classified; E46 Unspecified protein-calorie malnutrition; K80.10 Calculus of gallbladder with chronic cholecystitis without obstruction; D62 Acute posthemorrhagic anemia; M89.9 Disorder of bone, unspecified; E87.6 Hypokalemia; I10 Essential (primary) hypertension; M81.0 Age-related osteoporosis without current pathological fracture; K86.89 Other specified diseases of pancreas; I08.3 Combined rheumatic disorders of mitral, aortic and tricuspid valves; E01.0 Iodine-deficiency related diffuse (endemic) goiter; W01.0XXA Fall on same level from slipping, tripping and stumbling without subsequent striking against object, initial encounter; Y93.01 Activity, walking, marching and hiking; Y92.019 Unspecified place in single-family (private) house as the place of occurrence of the external cause; Z87.891 Personal history of nicotine dependence

== ENCOUNTER 2016-10-25 10:20 | Inpatient (IN) | payer MEDICARE ==
[2016-10-25 10:20] VITALS: BMI 20.3
[2016-10-25] MEDS ORDERED: Sodium Chloride 0.9% 1,000 ML IV STA (11:14)
--- NOTE | 2016-10-25 11:15 | ED PDOC ---
Arrival/HPI - General Chief Complaint: ENT Problem Time Seen by Provider: 10/25/16 11:01 Historian: Patient, Family (daughter) - History of Present Illness Narrative History of Present Illness (Text): 10/25/16 11:05 Gabriella Zhu is an 86 year old female, whose past medical history includes right side hip fracture and surgery, presents to the emergency department accompanied by her daughter, complaining of decreased po intake x 2 days and generalized lethargy. Daughter is wondering if patient has sore throat, because she reports that her tongue has a film on it. Patient denies complaints other than pain to her decubitus ulcer. Patient denies chest pain, shortness of breath, headache, fever, chills, cough, nausea, vomiting, diarrhea , abdominal pain, dizziness or other complaints. patient has not been eating PMD: Dr. Gutierrez Time/Duration: < week (4 days) Symptom Onset: Sudden Symptom Course: Unchanged Activities at Onset: Light Modifying Factors (Text): discomfort and pain when swallowing food Context: Home Associated Symptoms (Text): None Past Medical History - Provider Review Nursing Documentation Reviewed: Yes - Infectious Disease Hx of Infectious Diseases: None - Tetanus Immunization Tetanus Immunization: Unknown - Reproductive Menopause: Yes - Past Medical History Past Medical History: No Previous - Cardiac Hx Cardiac Disorders: No - Pulmonary Hx Respiratory Disorders: No - Neurological Hx Neurological Disorder: Yes Hx Dementia: Yes - HEENT Hx HEENT Disorder: No - Renal Hx Renal Disorder: No - Endocrine/Metabolic Hx Endocrine Disorders: No - Hematological/Oncological Hx Blood Transfusions: Yes Hx Blood Transfusion Reaction: No - Integumentary Hx Dermatological Disorder: No - Musculoskeletal/Rheumatological Hx Arthritis: Yes - Gastrointestinal Hx Gastrointestinal Disorders: Yes - Genitourinary/Gynecological Hx Genitourinary Disorders: Yes Hx Incontinence: Yes - Psychiatric Hx Psychophysiologic Disorder: No Hx Emotional Abuse: No Hx Physical Abuse: No Hx Substance Use: No - Past Surgical History Past Surgical History: No Previous - Surgical History Hx Orthopedic Surgery: Yes - Anesthesia Hx Anesthesia Reactions: No Hx Malignant Hyperthermia: No - Suicidal Assessment Feels Threatened In Home Enviroment: No Family/Social History - Physician Review Nursing Documentation Reviewed: Yes Family/Social History: Unknown Family HX Smoking Status: Current Some Days Smoker Hx Alcohol Use: No Hx Substance Use: No Hx Substance Use Treatment: No Allergies/Home Meds Allergies/Adverse Reactions: Allergies No Known Allergies Allergy (Verified 10/25/16 10:49) Home Medications: Home Meds Medication Instructions Recorded Confirmed No Known Home Med 10/25/16 10/25/16 Review of Systems - Physician Review All systems were reviewed & negative as marked: Yes - Review of Systems Constitutional: Fatigue. absent: Fevers Eyes: absent: Vision Changes ENT: absent: Hearing Changes, Sore Throat Respiratory: absent: SOB, Cough Cardiovascular: absent: Chest Pain, Palpitations, Edema Gastrointestinal: absent: Abdominal Pain, Diarrhea, Nausea, Vomiting Genitourinary Female: absent: Dysuria, Frequency Skin: Ulcer (bed sore) Neurological: absent: Headache, Dizziness, Focal Weakness Endocrine: absent: Diaphoresis Physical Exam Vital Signs Reviewed: Yes Vital Signs Temp Pulse Resp BP Pulse Ox 10/25/16 12:34 76 18 118/68 98 10/25/16 11:20 68 18 121/61 98 10/25/16 10:44 98 F 70 16 118/59 L 97 Temperature: Afebrile Blood Pressure: Normal Pulse: Regular Respiratory Rate: Normal Appearance: Positive for: Comfortable, Ill-Appearing, Cachectic Pain Distress: None Mental Status: Positive for: Alert and Oriented X 3 - Systems Exam Head: Present: Atraumatic, Normocephalic Pupils: Present: PERRL Extroacular Muscles: Present: EOMI Conjunctiva: Present: Normal Mouth: Present: Dry, Other (no white discharge on tongue to suggest thrush). No : Normal Tounge (dry tounge) Pharnyx: No: ERYTHEMA, EXUDATE Neck: Present: Normal Range of Motion. No: Meningeal Signs Respiratory/Chest: Present: Clear to Auscultation, Good Air Exchange. No: Respiratory Distress, Accessory Muscle Use Cardiovascular: Present: Tachycardic. No: Murmurs Abdomen: Present: Normal Bowel Sounds. No: Tenderness (soft), Distention, Peritoneal Signs Back: Present: Normal Inspection, Decubitus Ulcer (posterior buttocks) Upper Extremity: Present: Normal Inspection. No: Cyanosis, Edema Lower Extremity: Present: Normal Inspection. No: Edema Neurological: Present: GCS=15, CN II-XII Intact, Speech Normal Skin: Present: Warm, Dry, Normal Color. No: Rashes Psychiatric: Present: Alert, Oriented x 3, Normal Insight, Normal Concentration Medical Decision Making ED Course and Treatment: 10/25/16 11:28 Impression: 86 year old female with generalized fatigue and decreased po intake. Afebrile. Appears dehydrated. Plan: -- EKG -- Chest X-ray -- Labs -- Sodium Chloride -- Reassess and disposition Progress Notes: EKG: Ordered, reviewed, and independently interpreted the EKG. Rate : 102 BPM Rhythm : Sinus tachycardia Interpretation : PAC. Normal intervals, no ST changes. 10/25/16 12:12 Cxray shows hyperinflation. 10/25/2016 12:20 Chest X-ray: Creator : Raymundo Velez MD COMPARISON: 09/11/2016 FINDINGS: LUNGS: No active pulmonary disease. PLEURA: No significant pleural effusion identified, no pneumothorax apparent. CARDIOVASCULAR: Normal. OSSEOUS STRUCTURES: No significant abnormalities. VISUALIZED UPPER ABDOMEN: Normal. OTHER FINDINGS: None. IMPRESSION: No active disease. Anemic to 7.5. Typed and crossed for 2 units PRBCs. Tranfusion order written. Spoke to Dr. Shaikh. Will admit for failure to thrive requiring IV hydation and anemia requiring transfusion. - Lab Interpretations Lab Results: 10/25/16 11:35 10/25/16 11:35 Lab Results 10/25/16 11:35: Sodium 138, Potassium 3.8, Chloride 102, Carbon Dioxide 26, Anion Gap 14, BUN 14, Creatinine 0.4 L, Est GFR ( Amer) > 60, Est GFR ( Non-Af Amer) > 60, Random Glucose 83, Calcium 8.5, Total Bilirubin 0.9, AST 80 H , ALT 56, Alkaline Phosphatase 136 H, Total Protein 5.4 L, Albumin 2.9 L, Globulin 2.4, Albumin/Globulin Ratio 1.2 10/25/16 11:35: WBC 7.6 D, RBC 3.03 L, Hgb 7.5 L, Hct 24.7 L, MCV 81.5, MCH 24.8 L, MCHC 30.4 L, RDW 19.1 H, Plt Count 460 H, MPV 9.0, Gran % 78.7 H, Lymph % (Auto) 15.3 L, [place] % (Auto) 5.9, Eos % (Auto) 0.0 L, Baso % (Auto) 0.1, Gran # 6.01, Lymph # 1.2, [place] # 0.5, Eos # 0.0, Baso # 0.01 I have reviewed the lab results: Yes - RAD Interpretation Radiology Orders: 10/25/16 11:14 CHEST PORTABLE [RAD] Stat Hazmat Cdl Driver: Radiologist - EKG Interpretation Interpreted by ED Physician: Yes Type: 12 lead EKG - Medication Orders Current Medication Orders: Discontinued Medications Sodium Chloride (Sodium Chloride 0.9%) 1,000 mls @ 999 mls/hr IV .[id number] STA Stop: 10/25/16 12:14 Last Admin: 10/25/16 11:40 Dose: 999 mls/hr - Scribe Statement The provider has reviewed the documentation as recorded by the Scribe 10/25/2016 Damaris Marshall Provider Scribe Attestation: All medical record entries made by the Scribe were at my direction and personally dictated by me. I have reviewed the chart and agree that the record accurately reflects my personal performance of the history, physical exam, medical decision making, and the department course for this patient. I have also personally directed, reviewed, and agree with the discharge instructions and disposition. Disposition/Present on Arrival - Present on Arrival Any Indicators Present on Arrival: No History of DVT/PE: No History of Uncontrolled Diabetes: No Urinary Catheter: No History of Decub. Ulcer: No History Surgical Site Infection Following: None - Disposition Have Diagnosis and Disposition been Completed?: Yes Diagnosis: Anemia, Dehydration, Failure to thrive Disposition: HOSPITALIZED Disposition Time: 11:27 Patient Plan: Observation Condition: FAIR
[2016-10-25 11:45] LABS: BASO # 0.01 K/mm3 (0.0-2.0); BASO % 0.1 % (0.0-3.0); GRAN # 6.01 (1.4-6.5); GRAN % 78.7 % (50.0-68.0); HEMATOCRIT 24.7 % (36.0-48.0); LYMPH # 1.2 (1.2-3.4); LYMPH % 15.3 % (22.0-35.0); MEAN CELL VOLUME 81.5 fl (80.0-105.0); MEAN CORPUSCULAR HEMOGLOBIN 24.8 pg (25.0-35.0); MEAN CORPUSCULAR HGB CONC 30.4 g/dl (31.0-37.0); MONO # 0.5 (0.1-0.6); MONO % 5.9 % (1.0-6.0); RED CELL DISTRIBUTION WIDTH 19.1 % (11.5-14.5); WHITE BLOOD COUNT 7.6 10^3/ul (4.5-11.0)
[2016-10-25 11:54] LABS: ALB/GLOB RATIO 1.2 (1.1-1.8); ALKALINE PHOSPHATASE 136 U/L (38-133); ALT/SGPT 56 U/L (7-56); AST/SGOT 80 U/L (15-39); BILIRUBIN,TOTAL 0.9 mg/dL (0.2-1.3); BLOOD UREA NITROGEN 14 mg/dL (7-21); CALCIUM 8.5 mg/dL (8.4-10.5); CARBON DIOXIDE 26 mmol/L (21-33); CHLORIDE 102 mmol/L (98-107); GFR AFRICAN-AMERICAN > 60; GLUCOSE,RANDOM 83 mg/dL (70-110); POTASSIUM 3.8 mmol/L (3.6-5.0); SODIUM 138 mmol/L (132-148); TOTAL PROTEIN 5.4 g/dL (5.8-8.3)
--- NOTE | 2016-10-25 12:20 | RAD ---
HISTORY: fatigue COMPARISON: 09/11/2016 FINDINGS: LUNGS: No active pulmonary disease. PLEURA: No significant pleural effusion identified, no pneumothorax apparent. CARDIOVASCULAR: Normal. OSSEOUS STRUCTURES: No significant abnormalities. VISUALIZED UPPER ABDOMEN: Normal. OTHER FINDINGS: None. IMPRESSION: No active disease.
[2016-10-25 12:49] LABS: MAGNESIUM 2.1 mg/dL (1.7-2.2)
--- NOTE | 2016-10-25 12:54 | CARD ---
APPROVED REPORT EKG Measurement Heart [id number] <Conclusion> Sinus tachycardia with premature atrial complexes Otherwise normal ECG
[2016-10-25] MEDS ORDERED: Pneumococcal 23-Valent Vaccine IM ONE (16:33)
[2016-10-25] MEDS: Sodium Chloride 0.9% 1,000 ML IV SCH (19:37)
[2016-10-26] MEDS: Sodium Chloride 0.9% 1,000 ML IV SCH ×2 (04:47→09:25)
[2016-10-26] MEDS: Nystatin 100,000 Units/ml Oral Susp 5 ml UD PO SCH ×5 (10:29→21:56)
[2016-10-26 11:03] LABS: MEAN CELL VOLUME 82.6 fl (80.0-105.0); MEAN CORPUSCULAR HGB CONC 31.4 g/dl (31.0-37.0); MEAN PLATELET VOLUME 8.9 fl (7.0-11.0); RED CELL DISTRIBUTION WIDTH 17.3 % (11.5-14.5); WHITE BLOOD COUNT 7.1 10^3/ul (4.5-11.0)
[2016-10-26] MEDS ORDERED: Benzocaine/Menthol (Cepacol) Lozenge MT PRN (16:42)
[2016-10-26] MEDS: Potassium Chloride 40 MEQ in Dextrose 5%/0.9% NS 1,000 ML IV SCH (18:16)
--- NOTE | 2016-10-27 05:08 | CON ---
DATE: 10/26/2016 EAR, NOSE AND THROAT CONSULTATION REASON FOR CONSULTATION: Dysphagia. CONSULTING PHYSICIAN: Dr. Zaheer Corrales. REFERRING PHYSICIAN: Dr. Gutierrez. HISTORY OF PRESENT ILLNESS: This is an 86-year-old female with past medical history significant for hypertension and hip replacement, most recently hip replacement 2 weeks ago. She comes into the [facility] [place] from her rehab location for generalized weakness and decreased p.o. intake. The patient herself is somewhat a poor historian, however, she was brought by family member and friend to the hospital who has helped in obtaining the patient's medical history. Upon presentation to the [facility] [place] yesterday, the patient was found to have hemoglobin of 7.5 for which she transfused 2 units and subsequently admitted to the floor for IV fluid hydration and further management. Upon evaluation, the patient is alert and awake in the bed, but as stated above poor historian and her close friend is at the bedside. The patient reports that she has been feeling well and eating well at home, however, friend states that she is actually has had very poor p.o. intake and has not been eating very much at home and in addition lost about 20 pounds since 2 weeks ago. The patient reports that she is hungry and would like to eat. She does report some very mild throat pain, but denies any difficulty with swallowing liquids or solids. She does note burning of her mouth and attempted to give her some water and apple juice at the bedside afterwards she states that the mouth was burning. She denied that there is any pain with swallowing or difficulty with swallowing. She also denies fevers, chills, chest pain, shortness of breath at this point. Also states that she denies cough and recent illnesses. PAST MEDICAL HISTORY: As stated above. PAST SURGICAL HISTORY: As stated above. SOCIAL HISTORY: She is actively smoking about 1 to 2 cigarettes a day, cutdown from about half a pack a day couple of years ago. Denies alcohol use. ALLERGIES: NO KNOWN DRUG ALLERGIES. MEDICATIONS: She is currently on nystatin, Xanax. REVIEW OF SYSTEMS: Negative as per HPI. PHYSICAL EXAMINATION: GENERAL: She is awake, alert, in no acute distress. She is cachectic. Seems somewhat forgetful. VITAL SIGNS: Temperature is 98.4, pulse rate is 92, blood pressure 105/58, respirations are 20, and oxygen is 97% on 2 liters of nasal cannula. HEENT: Eyes; extraocular movements grossly intact. Ears; external auricles unremarkable. Canals clear. Tympanic membranes intact. Nose is patent bilaterally. No discharge. No epistaxis. Oral cavity; lips are unremarkable. Tongue is mobile in midline. Overall, mucosa is very dry with dry mucous excoriation to the dorsum of the tongue and then roof of the mouth. Palate is symmetrical. Uvula is midline. Tonsils are not enlarged. There is no exudate. There is some erythema to the entire oral cavity. She is edentulous. There is no floor of mouth lesion. No buccal lesion. No ulcers noted. No signs of thrush noted. NECK: Cachectic, soft, nontender. No lymphadenopathy. LUNGS: Respirations are unlabored. LABORATORY DATA: She has a white blood cell count is 7.1, hemoglobin 8.8, hematocrit 28, and platelets 356. Sodium 138, potassium 3.8, chloride 102, carbon dioxide 26, BUN 14, creatinine 0.4, AST 80, ALT 56, albumin 2.9. Imaging shows a chest x-ray from 10/25/2016 which revealed no significant pleural effusion, pneumothorax, no active pulmonary disease and no significant abnormalities noted. ASSESSMENT AND PLAN: This is an 86-year-old female with past medical history of hypertension, hip arthritis status post hip surgery who comes in with generalized weakness and burning of the mouth and dry oral mucosa with decreased p.o. intake. At this point, oral cavity exam does not demonstrate any signs of an infectious process, but could consider dermatitis as an etiology for the burning. We will check for deficiency of iron and B vitamin. I will also recommend supportive care at this point with analgesics as needed. We ordered viscous lidocaine and Cepacol lozenges for the throat pian. Also would start the patient on soft diet and supplements including Ensure. I would give her the analgesic before trying the diet. If the patient did not continue to improve with supportive care, I would like to perform direct laryngoscopy, however, do not suspect that there are any laryngeal causes for her oral cavity pain. Dysphagia continue for a long period of time also consider gastrointestinal evaluation. The above plan was discussed in detail with the patient and the family at bedside along with the nurses. Thank you for allowing us to participate in this patient's care. Zaheer Corrales DO [facility] # [id number]
[2016-10-27] MEDS: Potassium Chloride 40 MEQ in Dextrose 5%/0.9% NS 1,000 ML IV SCH ×3 (06:12→22:58)
[2016-10-27 07:01] LABS: HEMATOCRIT 30.4 % (36.0-48.0); MEAN CELL VOLUME 83.1 fl (80.0-105.0); MEAN CORPUSCULAR HEMOGLOBIN 25.7 pg (25.0-35.0); MEAN CORPUSCULAR HGB CONC 30.9 g/dl (31.0-37.0); MEAN PLATELET VOLUME 8.8 fl (7.0-11.0); RED CELL DISTRIBUTION WIDTH 17.7 % (11.5-14.5); WHITE BLOOD COUNT 7.2 10^3/ul (4.5-11.0)
--- NOTE | 2016-10-27 07:06 | HP ---
CHIEF COMPLAINT AND HISTORY OF PRESENT ILLNESS: This is an 86-year-old female who is coming into the hospital, brought in by her family because of weakness. The patient has been slowly declining. She was discharged after she stayed there for rehab. She had developed left hip fracture and previously, the patient had, had a hip surgery done. The patient has been slowly declining. She had a fracture few months ago of the hip and had not fully recovered. The patient has no complaints of any chest pain or shortness of breath. No headaches, no dizziness. She has not had a good appetite. She has been not walking well. Appetite has been poor. She has been losing weight. The patient had no complaints of any headaches. No abdominal pain. No back pain. No dysuria or frequency. She does have pain in the pressure ulcer that she has in the lower back. She has no fevers or chills. She says that she wanted to eat, she does have cough when she swallows at times. She has no dizziness. No dysuria or frequency. She has mild cough at times, but most of the cough when she tries to drink. All the review of symptoms are within normal limits except as mentioned. PAST MEDICAL HISTORY: Osteoporosis and pelvic fracture. ALLERGIES: NO ALLERGIES TO MEDICATIONS. SOCIAL HISTORY: She is a smoker, but she decreased her smoking significantly, she smoked for many years. FAMILY HISTORY: Noncontributory. HOME MEDICATIONS: Not known by this patient. She had been on metoprolol and tramadol. PHYSICAL EXAMINATION: VITAL SIGNS: Temperature is 99.2, pulse 91, blood pressure 114/53, respirations 18, O2 saturation 97%. Height is 5 feet 7 inches, weight 130 pounds and BMI is 20. GENERAL: The patient lying in bed, uncomfortable, and in no acute distress. HEENT: Atraumatic and normocephalic. Anicteric sclerae. Moist mucosa. [place] conjunctivae. No oral lesions. NECK: No JVD, anterior and posterior adenopathy, thyromegaly, or bruits. CARDIOVASCULAR: S1 and S2 regular. No murmur, rubs, or gallop. LUNGS: Clear to auscultation bilaterally. No wheezes, rales, or rhonchi. ABDOMEN: Bowel sounds are positive. Soft, nontender and nondistended. No hepatosplenomegaly. No rebound and no guarding EXTREMITIES: No cyanosis, clubbing, or edema. NEUROLOGIC: No facial asymmetry. Tongue is midline. No uvula deviation. Power is 5/5 upper extremity and lower extremity. Sensation intact in upper extremity and lower extremity. PSYCHIATRIC: She is awake, alert and oriented x2. No anxiety or depression. She has normal affect. GENITOURINARY: No CVA tenderness. VASCULAR: 2+ pulses in the carotid pulses and pedal pulses. SKIN: No erythema or nodules SPINE: Shows normal curvature. BACK: There is a pressure ulcer, unstageable. LABORATORY DATA: Chest x-ray done shows no active disease. EKG shows sinus tachycardia of 102 with PAC, QTc is 471. ASSESSMENT: 1. Failure to thrive. 2. Malnutrition, mild with albumin of 2.9. 3. Anemia, iron deficiency type. 4. Osteoporosis. 5. History of bilateral pelvic fracture. 6. Cholelithiasis. 7. Sacral pressure ulcer. PLAN: The patient was admitted to the hospital. She has history of iron deficiency. She is not eating and drinking. The patient is on IV fluid with dextrose. The patient is on lidocaine viscous. The patient is going to be on Xanax. Her diet has been advanced by Dr. Calderon. The patient has a Oliver catheter that was inserted because of the wound. The patient has a poor appetite. She refused dinner. I did speak to the patient's daughter today, give her an update of the patient's diagnosis and plan of care. I spoke with Karlos, she has been involved with the patient, she is the daughter, whom I see the majority of the time visiting her. We will repeat the patient's blood work tomorrow. Overall prognosis is guarded as the patient is declining, developing pressure ulcers, and becoming malnourished. She is a full code. We will have a family meeting with the patient's daughters tomorrow at 9 a.m. We will also get hematology evaluation. Tristan Gutierrez MD
[2016-10-27 07:33] LABS: ALB/GLOB RATIO 1.2 (1.1-1.8); ALKALINE PHOSPHATASE 117 U/L (38-133); ALT/SGPT 49 U/L (7-56); AST/SGOT 76 U/L (15-39); BILIRUBIN,TOTAL 1.1 mg/dL (0.2-1.3); BLOOD UREA NITROGEN 7 mg/dL (7-21); CALCIUM 7.7 mg/dL (8.4-10.5); CARBON DIOXIDE 29 mmol/L (21-33); CHLORIDE 105 mmol/L (98-107); GFR AFRICAN-AMERICAN > 60; GLUCOSE,RANDOM 106 mg/dL (70-110); SODIUM 142 mmol/L (132-148); TOTAL PROTEIN 4.7 g/dL (5.8-8.3)
[2016-10-27] MEDS: Megestrol Acetate 40 mg/ml Cup PO SCH (11:06)
[2016-10-27] MEDS: Nystatin 100,000 Units/ml Oral Susp 5 ml UD PO SCH ×5 (11:06→22:56)
[2016-10-27] MEDS: Collagenase 250 Units/gm Ointment(30 gm) TOP SCH (12:40)
[2016-10-27 12:45] LABS: FOLATE 4.2 ng/mL
--- NOTE | 2016-10-27 13:39 | CP.PCM.CON ---
History of Present Illness - History of Present Illness History of Present Illness: Surgery: Dr. Park Reason for consult: multiple pressure wounds HPI: Patient is an 86 y/o male w/ significant pmhx of recent hip fracture requiring replacement in August 2016 readmitted for anemia and dehydration. Patient was discharged to rehab then subsequently home. Since discharge patient has had poor oral intake and weight loss. Patient found to have multiple pressure wounds including her right leg, bilateral heals, and sacrum. Patient overall is a poor historian and brief history obtained from medical records PMH: HTN, recent left hip fracture, failure to thrive PSH: left hip replacement Review of Systems - Review of Systems All systems: reviewed and no additional remarkable complaints except Review of Systems: unless stated in hpi Past Patient History - Infectious Disease Hx of Infectious Diseases: None - Tetanus Immunizations Tetanus Immunization: Unknown - Past Social History Smoking Status: Never Smoked - CARDIAC Hx Peripheral Vascular Disease: Yes - PULMONARY Hx Respiratory Disorders: No - NEUROLOGICAL Hx Neurological Disorder: Yes Hx Dementia: Yes - HEENT Hx HEENT Problems: No - RENAL Hx Chronic Kidney Disease: No - ENDOCRINE/METABOLIC Hx Endocrine Disorders: No - HEMATOLOGICAL/ONCOLOGICAL Hx Anemia: Yes (blood transfusion) - INTEGUMENTARY Other/Comment: multiple age spots to scalp and face, b/l feet thick hard toenails. tle posterior calf long 15cm x 1.5 cm w large deep red skin discolorations, ble multiple skin discolorations, b/l arms multilpe skin discolorations and thin dry skin, sacrum unstageable pressure ulder 6.5cm x 4.5cm necrotis and bleeding, left heel dry necrotic red,dry crusty lips and tongue is deep red color with dry crusty tongue - MUSCULOSKELETAL/RHEUMATOLOGICAL Hx Arthritis: Yes - GASTROINTESTINAL Hx Gastroesophageal Reflux: (GI issues?) - GENITOURINARY/GYNECOLOGICAL Hx Genitourinary Disorders: Yes Hx Incontinence: Yes - PSYCHIATRIC Hx Substance Use: No - SURGICAL HISTORY Hx Orthopedic Surgery: Yes Other/Comment: r hip replacement about 6 yrs ago, L femur fx august 2016 sx with hardware from fall went to [facility] for rehab was discharged oct 07 2016 - ANESTHESIA Hx Anesthesia Reactions: No Hx Malignant Hyperthermia: No Meds Allergies/Adverse Reactions: Allergies Allergy/AdvReac Type Severity Reaction Status Date / Time No Known Allergies Allergy Verified 10/25/16 10:49 - Medications Medications: Current Medications Alprazolam (Xanax) 0.25 mg PO HS PRN; Protocol PRN Reason: Sleep Stop: 11/02/16 08:41 Benzocaine/Menthol (Cepacol Sore Throat) 1 [place] Q2H PRN PRN Reason: Sore Throat Collagenase (Santyl) 0 gm TOP DAILY [facility] Potassium Chloride 40 meq/ (Dextrose/Sodium Chloride) 1,020 mls @ 75 mls/hr IV .[id number] [facility] Last Admin: 10/27/16 07:44 Dose: 75 mls/hr Lidocaine HCl (Lidocaine 2% Viscous) 15 ml PO Q3H PRN PRN Reason: Pain, Mild (1-3) Last Admin: 10/27/16 10:01 Dose: 15 ml Megestrol Acetate (Megace) 400 mg PO DAILY [facility] Last Admin: 10/27/16 11:06 Dose: 400 mg Nystatin (Nystatin Oral Susp) 5 ml PO QID [facility] Last Admin: 10/27/16 11:16 Dose: Not Given Physical Exam - Constitutional Appears: Cachectic, Chronically Ill - Head Exam Head Exam: ATRAUMATIC, NORMOCEPHALIC - Eye Exam Eye Exam: EOMI - ENT Exam ENT Exam: Mucous Membranes Dry - Respiratory Exam Respiratory Exam: NORMAL BREATHING PATTERN. absent: Respiratory Distress - Cardiovascular Exam Cardiovascular Exam: absent: Tachycardia - GI/Abdominal Exam GI & Abdominal Exam: Soft. absent: Distended, Tenderness - Skin Additional comments: bilateral heal pressure ulcers with blistering measuring 3x3 cm stage 2-3 right lateral leg pressure wound stage 2 with blistering measuring [id number] some skin abrasion sacral pressure wound at different stage with necrotic tissue in center, unstagable measuring 8x10cm approximately Results - Vital Signs Recent Vital Signs: Last Vital Signs Temp 99.2 F 10/26/16 16:00 Pulse 91 H 10/26/16 16:00 Resp 18 10/26/16 16:00 BP 114/53 L 10/26/16 16:00 Pulse Ox 97 10/26/16 16:00 - Labs Result Diagrams: 10/27/16 06:30 10/27/16 06:30 Labs: Laboratory Results - last 24 hr 10/27/16 10/27/16 06:30 06:30 WBC 7.2 RBC 3.66 Hgb 9.4 L Hct 30.4 L MCV 83.1 MCH 25.7 MCHC 30.9 L RDW 17.7 H Plt Count 355 MPV 8.8 Sodium 142 Potassium 3.0 L Chloride 105 Carbon Dioxide 29 Anion Gap 11 BUN 7 Creatinine 0.4 L Est GFR ( Amer) > 60 Est GFR (Non-Af Amer) > 60 Random Glucose 106 Calcium 7.7 L Ferritin 129.0 Total Bilirubin 1.1 AST 76 H ALT 49 Alkaline Phosphatase 117 Total Protein 4.7 L Albumin 2.6 L Globulin 2.2 Albumin/Globulin Ratio 1.2 Vitamin B12 995 H Folate 4.2 Assessment & Plan - Assessment and Plan (Free Text) Assessment: 86 y/o female w/ multiple pressure ulcers Plan: -air mattress -turn Q2 -heal support with boots -santyl to sacral wound and re-asses in 48hrs -ok for medihoney to right calf -local wound care to heals -further recs per Dr. Xavier Graf PGY3
--- NOTE | 2016-10-27 13:44 | CP.PCM.CON ---
History of Present Illness - History of Present Illness History of Present Illness: Seen and examined at the bedside earlier today, chart was reviewed. Request for GI consult is for PEG evaluation. HPI: This is a 86-year-old female with past medical history of pelvic fracture, osteoporosis was brought to the hospital by her family secondary to reports of weakness. The patient had recent history of hip fracture status post surgery. The patient was discharged to rehabilitation and discharge back home. The patient has been reported to have a very poor appetite and having weight loss. The patient also has pressure ulcers in her lower back. The patient has also been complaining of oral discomfort and difficulty swallowing. The patient was seen by ENT and found to have multiple sores in her oral cavity and esophagus. The patient does appear cachectic, on evaluation the patient's daughter was at the bedside Ali, she states that her mother has been not eating well and was lethargic. The patient does not have any problems with solids or liquids, denies any episodes of choking. Complains of burning sensation and throat pain when attempting to eat. She does report she wants to eat. The patient did undergo swallow evaluation and found to have oropharyngeal dysphagia, the patient was seen by ENT as well who found multiple sores in the oral cavity. Patient denies nausea, vomiting, or abdominal pain. No reports of any overt GI bleed. Past medical history: Osteoporosis and pelvic fracture Surgical history: Left hip surgery Family history: Noncontributory Allergies: No known drug allergies Social history: Positive for smoking, denies EtOH, denies substance abuse Medications: Reviewed as per MAR ROS: Systems reviewed with positive finding see HPI Past Patient History - Infectious Disease Hx of Infectious Diseases: None - Tetanus Immunizations Tetanus Immunization: Unknown - Past Social History Smoking Status: Never Smoked - CARDIAC Hx Peripheral Vascular Disease: Yes - PULMONARY Hx Respiratory Disorders: No - NEUROLOGICAL Hx Neurological Disorder: Yes Hx Dementia: Yes - HEENT Hx HEENT Problems: No - RENAL Hx Chronic Kidney Disease: No - ENDOCRINE/METABOLIC Hx Endocrine Disorders: No - HEMATOLOGICAL/ONCOLOGICAL Hx Anemia: Yes (blood transfusion) - INTEGUMENTARY Other/Comment: multiple age spots to scalp and face, b/l feet thick hard toenails. tle posterior calf long 15cm x 1.5 cm w large deep red skin discolorations, ble multiple skin discolorations, b/l arms multilpe skin discolorations and thin dry skin, sacrum unstageable pressure ulder 6.5cm x 4.5cm necrotis and bleeding, left heel dry necrotic red,dry crusty lips and tongue is deep red color with dry crusty tongue - MUSCULOSKELETAL/RHEUMATOLOGICAL Hx Arthritis: Yes - GASTROINTESTINAL Hx Gastroesophageal Reflux: (GI issues?) - GENITOURINARY/GYNECOLOGICAL Hx Genitourinary Disorders: Yes Hx Incontinence: Yes - PSYCHIATRIC Hx Substance Use: No - SURGICAL HISTORY Hx Orthopedic Surgery: Yes Other/Comment: r hip replacement about 6 yrs ago, L femur fx august 2016 sx with hardware from fall went to [facility] for rehab was discharged oct 07 2016 - ANESTHESIA Hx Anesthesia Reactions: No Hx Malignant Hyperthermia: No Meds Allergies/Adverse Reactions: Allergies Allergy/AdvReac Type Severity Reaction Status Date / Time No Known Allergies Allergy Verified 10/25/16 10:49 - Medications Medications: Current Medications Alprazolam (Xanax) 0.25 mg PO HS PRN; Protocol PRN Reason: Sleep Stop: 11/02/16 08:41 Benzocaine/Menthol (Cepacol Sore Throat) 1 [place] Q2H PRN PRN Reason: Sore Throat Collagenase (Santyl) 0 gm TOP DAILY [facility] Potassium Chloride 40 meq/ (Dextrose/Sodium Chloride) 1,020 mls @ 75 mls/hr IV .[id number] [facility] Last Admin: 10/27/16 07:44 Dose: 75 mls/hr Lidocaine HCl (Lidocaine 2% Viscous) 15 ml PO Q3H PRN PRN Reason: Pain, Mild (1-3) Last Admin: 10/27/16 10:01 Dose: 15 ml Megestrol Acetate (Megace) 400 mg PO DAILY [facility] Last Admin: 10/27/16 11:06 Dose: 400 mg Nystatin (Nystatin Oral Susp) 5 ml PO QID [facility] Last Admin: 10/27/16 11:16 Dose: Not Given Physical Exam - Constitutional Appears: Cachectic - Head Exam Head Exam: NORMOCEPHALIC - Eye Exam Eye Exam: Normal appearance. absent: Scleral icterus - ENT Exam Additional comments: multiple oral sores noted, no bleeding - Neck Exam Neck exam: Positive for: Normal Inspection - Respiratory Exam Respiratory Exam: Decreased Breath Sounds, NORMAL BREATHING PATTERN. absent: Respiratory Distress - Cardiovascular Exam Cardiovascular Exam: +S1, +S2 - GI/Abdominal Exam GI & Abdominal Exam: Normal Bowel Sounds, Soft. absent: Guarding (for normally. ), Rebound, Tenderness - Extremities Exam Extremities exam: Positive for: pedal pulses present. Negative for: calf tenderness, pedal edema - Neurological Exam Neurological exam: Alert (I), Oriented x3 - Skin Skin Exam: Dry (he subsequently picked it ishe is), Warm Additional comments: scaral decubitus, unstagable Results - Vital Signs Recent Vital Signs: Last Vital Signs Temp 99.2 F 10/26/16 16:00 Pulse 91 H 10/26/16 16:00 Resp 18 10/26/16 16:00 BP 114/53 L 10/26/16 16:00 Pulse Ox 97 10/26/16 16:00 - Labs Result Diagrams: 10/27/16 06:30 10/28/16 07:00 Labs: Laboratory Results - last 24 hr 10/27/16 10/27/16 06:30 06:30 WBC 7.2 RBC 3.66 Hgb 9.4 L Hct 30.4 L MCV 83.1 MCH 25.7 MCHC 30.9 L RDW 17.7 H Plt Count 355 MPV 8.8 Sodium 142 Potassium 3.0 L Chloride 105 Carbon Dioxide 29 Anion Gap 11 BUN 7 Creatinine 0.4 L Est GFR ( Amer) > 60 Est GFR (Non-Af Amer) > 60 Random Glucose 106 Calcium 7.7 L Ferritin 129.0 Total Bilirubin 1.1 AST 76 H ALT 49 Alkaline Phosphatase 117 Total Protein 4.7 L Albumin 2.6 L Globulin 2.2 Albumin/Globulin Ratio 1.2 Vitamin B12 995 H Folate 4.2 Assessment & Plan - Assessment and Plan (Free Text) Assessment: Assessment: Malnutrition Oral cavity sores Failure to thrive Anemia History of pelvic fracture Sacral pressure ulcer Cholelithiasis Plan: Will change his diet to finely chopped bland citrus free diet on calorie count on Nystatin Spoke to the daughter at the bedside Ali, she is okay for her mother to get the feeding tube, asked me to discuss with her mother regarding PEG tube, patient has no present living will but Ali , daughter states that the patient does not want to be intubated if necessary. Spoke to the patient regarding PEG tube, the patient is reluctant with anesthesia. Thank you for this consult and for allowing us to participate in your patient's care, we will make further recommendations based upon clinical course. Seen and discussed with Dr. Barber who is covering for Dr. Servin.
--- NOTE | 2016-10-27 14:42 | CP.PCM.CON ---
History of Present Illness - History of Present Illness History of Present Illness: Palliative consult requested by Dr Abdelrahman Gutierrez Reason: Goals of care 86 year old with history or recent L hip replacement 09/15/16. Then sent to [facility] rehab but discharged because patient was unable to participate in PT/OT for two hours daily. Daughter brought patient to ED because she was not eating, losing weight and complaining of sore throat when swallowing. She had a large sacral decubiti and multiple pressure ulcers heels, right hip on presentation. She was found to be anemic, Hgb 7.2 PMHX:HTN, right femur fracture 08/14, L Hip replacement 09/13,anemia. Social History: Smoker, denies alcohol and drug use. She has 9 children, lives with daughter Karlos who is her POA. Family History: Non contributory. Advance Care Planning: She does not have an Advanced Directive. Review of Systems: As per HPI, additional 12 point review negative. Past Patient History - Infectious Disease Hx of Infectious Diseases: None - Tetanus Immunizations Tetanus Immunization: Unknown - Past Social History Smoking Status: Never Smoked - CARDIAC Hx Peripheral Vascular Disease: Yes - PULMONARY Hx Respiratory Disorders: No - NEUROLOGICAL Hx Neurological Disorder: Yes Hx Dementia: Yes - HEENT Hx HEENT Problems: No - RENAL Hx Chronic Kidney Disease: No - ENDOCRINE/METABOLIC Hx Endocrine Disorders: No - HEMATOLOGICAL/ONCOLOGICAL Hx Anemia: Yes (blood transfusion) - INTEGUMENTARY Other/Comment: multiple age spots to scalp and face, b/l feet thick hard toenails. tle posterior calf long 15cm x 1.5 cm w large deep red skin discolorations, ble multiple skin discolorations, b/l arms multilpe skin discolorations and thin dry skin, sacrum unstageable pressure ulder 6.5cm x 4.5cm necrotis and bleeding, left heel dry necrotic red,dry crusty lips and tongue is deep red color with dry crusty tongue - MUSCULOSKELETAL/RHEUMATOLOGICAL Hx Arthritis: Yes - GASTROINTESTINAL Hx Gastroesophageal Reflux: (GI issues?) - GENITOURINARY/GYNECOLOGICAL Hx Genitourinary Disorders: Yes Hx Incontinence: Yes - PSYCHIATRIC Hx Substance Use: No - SURGICAL HISTORY Hx Orthopedic Surgery: Yes Other/Comment: r hip replacement about 6 yrs ago, L femur fx august 2016 sx with hardware from fall went to [facility] for rehab was discharged oct 07 2016 - ANESTHESIA Hx Anesthesia Reactions: No Hx Malignant Hyperthermia: No Meds Allergies/Adverse Reactions: Allergies Allergy/AdvReac Type Severity Reaction Status Date / Time No Known Allergies Allergy Verified 10/25/16 10:49 - Medications Medications: Current Medications Alprazolam (Xanax) 0.25 mg PO HS PRN; Protocol PRN Reason: Sleep Stop: 11/02/16 08:41 Benzocaine/Menthol (Cepacol Sore Throat) 1 monica MT Q2H PRN PRN Reason: Sore Throat Collagenase (Santyl) 0 gm TOP DAILY [facility] Potassium Chloride 40 meq/ (Dextrose/Sodium Chloride) 1,020 mls @ 75 mls/hr IV .[id number] [facility] Last Admin: 10/27/16 07:44 Dose: 75 mls/hr Lidocaine HCl (Lidocaine 2% Viscous) 15 ml PO Q3H PRN PRN Reason: Pain, Mild (1-3) Last Admin: 10/27/16 10:01 Dose: 15 ml Megestrol Acetate (Megace) 400 mg PO DAILY [facility] Last Admin: 10/27/16 11:06 Dose: 400 mg Nystatin (Nystatin Oral Susp) 5 ml PO QID [facility] Last Admin: 10/27/16 11:16 Dose: Not Given Physical Exam - Constitutional Appears: Cachectic, Chronically Ill - Head Exam Head Exam: NORMAL INSPECTION - Eye Exam Eye Exam: Normal appearance, PERRL - ENT Exam Additional comments: multiple sores in mouth, tongue - Neck Exam Neck exam: Positive for: Normal Inspection - Respiratory Exam Respiratory Exam: Decreased Breath Sounds, NORMAL BREATHING PATTERN - Cardiovascular Exam Cardiovascular Exam: REGULAR RHYTHM, +S1, +S2 - GI/Abdominal Exam GI & Abdominal Exam: Normal Bowel Sounds, Soft - Extremities Exam Extremities exam: Positive for: pedal pulses present - Neurological Exam Neurological exam: Alert Additional comments: oriented to place and self - Skin Skin Exam: Dry, Pallor Additional comments: bilateral heal pressure ulcers with blistering,right lateral leg pressure wound with blistering measuring abrasion sacral pressure wound at different stage with necrotic tissue in center, unstagable - Additional Findings Additional findings: Palliative performance scale rating 40% Results - Vital Signs Recent Vital Signs: Last Vital Signs Temp 99.2 F 10/26/16 16:00 Pulse 91 H 10/26/16 16:00 Resp 18 10/26/16 16:00 BP 114/53 L 10/26/16 16:00 Pulse Ox 97 10/26/16 16:00 - Labs Result Diagrams: 10/27/16 06:30 10/27/16 06:30 Labs: Laboratory Results - last 24 hr 10/27/16 10/27/16 06:30 06:30 WBC 7.2 RBC 3.66 Hgb 9.4 L Hct 30.4 L MCV 83.1 MCH 25.7 MCHC 30.9 L RDW 17.7 H Plt Count 355 MPV 8.8 Sodium 142 Potassium 3.0 L Chloride 105 Carbon Dioxide 29 Anion Gap 11 BUN 7 Creatinine 0.4 L Est GFR ( Amer) > 60 Est GFR (Non-Af Amer) > 60 Random Glucose 106 Calcium 7.7 L Ferritin 129.0 Total Bilirubin 1.1 AST 76 H ALT 49 Alkaline Phosphatase 117 Total Protein 4.7 L Albumin 2.6 L Globulin 2.2 Albumin/Globulin Ratio 1.2 Vitamin B12 995 H Folate 4.2 Assessment & Plan - Assessment and Plan (Free Text) Assessment: 86 year old female with recent left hip replacement who is admitted with anemia , dehydration, dysphagia, weight loss and failure to thrive. The patient is alert and oriented to self and place,forgetful at times. She complains of burning sensation when swallowing food. Her appetite is poor. She is primarily bed bound and needs assist with al ADL's Patient's daughter Karlos at bedside. Resuscitation wishes discussed with patient in daughter's presence. The patient is clear, she does not want CPR/intubation. She designates her daughter Karlos Lama as her POA. The daughter understands and is accepting of her mother's wishes. We also discussed patient's overall health status and in particular, increasingly poor appetite. Daughter admits that her mother's food intake has been decreasing over a period of weeks and that the addition of mouth sores and throat discomfort have caused her to decline further. Goals of care discussed. Daughter does not want her mother to give up and is encouraging her to eat. Benefits and burdens of PEG tube/artificial nutrition explained to patient and daughter. Patient is unsure, states she does not think she wants a feeding tube but won't commit to decision at this time. Patient's daughter Karlos admits she is having a much harder time accepting her mother' lack of desire to "get well". I explained that her mother has experienced a significant amount of medical issues over the past few months and that this may be the start of a natural decline towards end of life. Daughter states she is trying very hard to encourage her mother not to give up. Reassured and reenforced that palliative services will assist and provide support in in helping patient and family to establish future goals of care. Time spent with patient and daughter in goals of care discussion and advance care planning, 45 minutes Plan: As discussed with Dr Abdelrahman Guiterrez, DNR/DNI status ordered. Advance care planning Palliative support
[2016-10-27] MEDS ORDERED: Potassium Chloride 20 mEq ER Tab PO ONE (18:19)
[2016-10-27] MEDS: Prostat 15 g packet PO SCH (18:39)
--- NOTE | 2016-10-27 23:53 | CP.PCM.CON ---
History of Present Illness - History of Present Illness History of Present Illness: Ms. Zhu is an 86 year old female admitted with weaknes, severe anemia. She has multiple pressure sores on sacrum. Weight loss. No apatite. No bleeding from any site. Previous admission showed severe iron deficiency. MGUS on SPEP. Review of Systems - Constitutional Constitutional: Fatigue, Malaise, Weakness - EENT Eyes: absent: As Per HPI, Blind Spots, Blurred Vision, Change in Vision, Decreased Night Vision, Diplopia, Discharge, Dry Eye, Exophthalmos, Floaters, Irritation, Itchy Eyes, Loss of Peripheral Vision, Pain, Photophobia, Requires Corrective Lenses, Sees Flashes, Spots in Vision, Tunnel Vision, Other Visual Disturbances, Loss of Vision, Other Nose/Mouth/Throat: absent: As Per HPI, Epistaxis, Nasal Congestion, Nasal Discharge, Nasal Obstruction, Nasal Trauma, Nose Pain, Post Nasal Drip, Sinus Pain, Sinus Pressure, Bleeding Gums, Change in Voice, Dental Pain, Dry Mouth, Dysphagia, Halitosis, Hoarsness, Lip Swelling, Mouth Lesions, Mouth Pain, Odynophagia, Sore Throat, Throat Swelling, Tongue Swelling, Facial Pain, Neck Pain, Neck Mass, Other - Cardiovascular Cardiovascular: absent: As Per HPI, Acrocyanosis, Chest Pain, Chest Pain at Rest , Chest Pain with Activity, Claudication, Diaphoresis, Dyspnea, Dyspnea on Exertion, Edema, Irregular Heart Rhythm, Pain Radiating to Arm/Neck/Jaw, Leg Edema, Leg Ulcers, Lightheadedness, Orthopnea, Palpitations, Paroxysmal Nocturnal Dyspnea, Pedal Edema, Radiating Pain, Rapid Heart Rate, Slow Heart Rate, Syncope, Other - Respiratory Respiratory: absent: As Per HPI, Cough, Dyspnea, Hemoptysis, Dyspnea on Exertion , Wheezing, Snoring, Stridor, Pain on Inspiration, Chest Congestion, Excessive Mucous Production, Change in Mucous Color, Pain with Coughing, Other - Genitourinary Genitourinary: absent: As Per HPI, Change in Urinary Stream, Difficulty Urinating, Dysuria, Flank Pain, Hematuria, Pyuria, Nocturia, Urinary Incontinence, Urinary Frequency, Urinary Hesitance, Urinary Urgency, Voiding Freq/Small Amts, Freq UTI, Hx Renal/Bladder Calculi, Hx /Renal Surgery, Bladder Distension, Other - Musculoskeletal Musculoskeletal: As Per HPI - Neurological Neurological: absent: As Per HPI, Abnormal Gait, Abnormal Hearing, Abnormal Movements, Abnormal Speech, Behavioral Changes, Burning Sensations, Confusion, Convulsions, Disequilibrium, Dizziness, Numbness, Focal Weakness, Frequent Falls , Headaches, Lack of Coordination, Loss of Vision, Memory Loss, Paresthesias, Radicular Pain, Restless Legs, Sensory Deficit, Syncope, Tingling, Tremor, Vertigo, Weakness, Other Visual Disturbances, Other - Psychiatric Psychiatric: absent: As Per HPI, Abnormal Sleep Pattern, Anhedonia, Anxiety, Auditory Hallucinations, Behavioral Changes, Change in Appetite, Change in Libido, Confusion, Depression, Difficulty Concentrating, Hallucinations, Homicidal Ideation, Hopelessness, Irritability, Memory Loss, Mood Swings, Panic Attacks, Paranoia, Suicidal Ideation, Visual Hallucinations, Tactile Hallucinations, Other - Endocrine Endocrine: absent: As Per HPI, Change in Body Appearance, Change in Libido, Cold Intolorance, Deepening of Voice, Excessive Sweating, Fatigue, Flushing, Heat Intolorance, Increase in Ring/Shoe/Hat Size, Palpitations, Polydipsia, Polyphagia, Polyuria, Other - Hematologic/Lymphatic Hematologic: As Per HPI Past Patient History - Infectious Disease Hx of Infectious Diseases: None - Tetanus Immunizations Tetanus Immunization: Unknown - Past Medical History & Family History Past Medical History?: No Past Family History: Reviewed and not pertinent - Past Social History Smoking Status: Never Smoked - CARDIAC Hx Peripheral Vascular Disease: Yes - PULMONARY Hx Respiratory Disorders: No - NEUROLOGICAL Hx Neurological Disorder: Yes Hx Dementia: Yes - HEENT Hx HEENT Problems: No - RENAL Hx Chronic Kidney Disease: No - ENDOCRINE/METABOLIC Hx Endocrine Disorders: No - HEMATOLOGICAL/ONCOLOGICAL Hx Anemia: Yes (blood transfusion) - INTEGUMENTARY Other/Comment: multiple age spots to scalp and face, b/l feet thick hard toenails. tle posterior calf long 15cm x 1.5 cm w large deep red skin discolorations, ble multiple skin discolorations, b/l arms multilpe skin discolorations and thin dry skin, sacrum unstageable pressure ulder 6.5cm x 4.5cm necrotis and bleeding, left heel dry necrotic red,dry crusty lips and tongue is deep red color with dry crusty tongue - MUSCULOSKELETAL/RHEUMATOLOGICAL Hx Arthritis: Yes - GASTROINTESTINAL Hx Gastroesophageal Reflux: (GI issues?) - GENITOURINARY/GYNECOLOGICAL Hx Genitourinary Disorders: Yes Hx Incontinence: Yes - PSYCHIATRIC Hx Substance Use: No - SURGICAL HISTORY Hx Orthopedic Surgery: Yes Other/Comment: r hip replacement about 6 yrs ago, L femur fx august 2016 sx with hardware from fall went to [facility] for rehab was discharged oct 07 2016 - ANESTHESIA Hx Anesthesia Reactions: No Hx Malignant Hyperthermia: No Meds Allergies/Adverse Reactions: Allergies Allergy/AdvReac Type Severity Reaction Status Date / Time No Known Allergies Allergy Verified 10/25/16 10:49 - Medications Medications: Current Medications Alprazolam (Xanax) 0.25 mg PO HS PRN; Protocol PRN Reason: Sleep Stop: 11/02/16 08:41 Benzocaine/Menthol (Cepacol Sore Throat) 1 [place] Q2H PRN PRN Reason: Sore Throat Collagenase (Santyl) 0 gm TOP DAILY [facility] Last Admin: 10/27/16 12:40 Dose: 1 appful Potassium Chloride 40 meq/ (Dextrose/Sodium Chloride) 1,020 mls @ 75 mls/hr IV .[id number] [facility] Last Admin: 10/27/16 22:58 Dose: 75 mls/hr Lidocaine HCl (Lidocaine 2% Viscous) 15 ml PO Q3H PRN PRN Reason: Pain, Mild (1-3) Last Admin: 10/27/16 10:01 Dose: 15 ml Megestrol Acetate (Megace) 400 mg PO DAILY [facility] Last Admin: 10/27/16 11:06 Dose: 400 mg Nystatin (Nystatin Oral Susp) 5 ml PO QID [facility] Last Admin: 10/27/16 22:56 Dose: 5 ml Physical Exam - Constitutional Appears: Cachectic, Chronically Ill - Head Exam Head Exam: ATRAUMATIC, NORMAL INSPECTION, NORMOCEPHALIC - Eye Exam Eye Exam: Normal appearance Pupil Exam: NORMAL ACCOMODATION - ENT Exam ENT Exam: Mucous Membranes Moist - Neck Exam Neck exam: Positive for: Normal Inspection - Respiratory Exam Respiratory Exam: Clear to Auscultation Bilateral, NORMAL BREATHING PATTERN - Cardiovascular Exam Cardiovascular Exam: REGULAR RHYTHM, +S1, +S2 - GI/Abdominal Exam GI & Abdominal Exam: Normal Bowel Sounds - Extremities Exam Extremities exam: Positive for: normal inspection - Back Exam Back exam: NORMAL INSPECTION - Neurological Exam Neurological exam: CN II-XII Intact, Oriented x3 - Skin Skin Exam: Abrasion, Pallor, Warm Results - Vital Signs Recent Vital Signs: Last Vital Signs Temp 99.2 F 10/27/16 16:00 Pulse 79 10/27/16 16:00 Resp 20 10/27/16 16:00 BP 127/45 L 10/27/16 16:00 Pulse Ox 97 10/27/16 16:00 - Labs Result Diagrams: 10/27/16 06:30 10/27/16 06:30 Labs: Laboratory Results - last 24 hr 10/27/16 10/27/16 06:30 06:30 WBC 7.2 RBC 3.66 Hgb 9.4 L Hct 30.4 L MCV 83.1 MCH 25.7 MCHC 30.9 L RDW 17.7 H Plt Count 355 MPV 8.8 Sodium 142 Potassium 3.0 L Chloride 105 Carbon Dioxide 29 Anion Gap 11 BUN 7 Creatinine 0.4 L Est GFR ( Amer) > 60 Est GFR (Non-Af Amer) > 60 Random Glucose 106 Calcium 7.7 L Ferritin 129.0 Total Bilirubin 1.1 AST 76 H ALT 49 Alkaline Phosphatase 117 Total Protein 4.7 L Albumin 2.6 L Globulin 2.2 Albumin/Globulin Ratio 1.2 Vitamin B12 995 H Folate 4.2 Assessment & Plan - Assessment and Plan (Free Text) Assessment: 1. Severe Anemia : multifactorial - severe iron deficiency, malnutrition, may have occult blood loss, possibility of occult malignancy. s/p 2 units of PRBC. Hb improved to 9 gm/dl. IV iron 200 mg 2. Failure to thrive : goals will be discussed with family by DR. Gutierrez. 3. MGUS : faint band on SPEP. 4. Multiple pressure sores : surgery following. Thank you Dr. Gutierrez for allowing us to participate in her care. - Date & Time Date: 10/27/16 Time: 09:00
--- NOTE | 2016-10-28 02:58 | PN ---
DATE: 10/27/2016 SUBJECTIVE: The patient has no complaints of any chest pain. No shortness of breath or headache. PHYSICAL EXAMINATION: VITAL SIGNS: Temperature is 99.8, pulse is 95, blood pressure is 131/62, and respirations are 20. GENERAL: The patient is lying in bed, flat, comfortable. HEENT: No oral lesion. Anicteric sclerae. Moist mucosa. NECK: No JVD, adenopathy, or thyromegaly. CARDIOVASCULAR: S1 and S2, regular. No murmurs, rubs, or gallops. LUNGS: Clear to auscultation bilaterally. No wheeze, rales, or rhonchi. ABDOMEN: Bowel sounds are positive, soft, nontender and nondistended. EXTREMITIES: No cyanosis, clubbing or edema. BACK: There is a sacral pressure ulcer, unstageable. LABORATORY DATA: Potassium is 3.0 and creatinine 0.4. ASSESSMENT: 1. Failure to thrive. 2. Pressure ulcer on back, unstageable. 3. Malnutrition. 4. Anemia, iron deficiency type. 5. Osteoporosis. 6. Cholelithiasis. 7. History of bilateral pelvic fracture. 8. DNR/DNI. PLAN: The patient is currently comfortable. She is on IV fluids for potassium. The patient has IV fluids. She is on lidocaine viscous, but she is refusing at times. She is on megestrol for weight gain, but I am not optimistic that will be helpful to her. She is receiving IV protein. She is on Xanax as needed. The patient has enlarged ulcer; there is multiple on the back area. She was not able to recover from her 2 previous surgeries. She has bilateral heel pressure ulcers as well her nutrition is poor. She has continued to decline. I had a long discussion with the patient's sister, , regarding the patient's diagnoses and plan of care. The fact that she has continued to decline and her prognosis is poor. We talked about PEG feedings, which the family is interested in. I advised against placing a feeding tube, and also I tried to explain that this is not going to change her outcome. The patient herself does not wish to have a feeding tube or be resuscitated the patient's care regarding end of life discussion. I also spoke to the patient's son, Jose A on the phone and explained many of these issues, answered questions. We had a total of 35 minutes conversation regarding end of life care. Her overall prognosis is guarded. The patient's family did decide about DNR. I will get Dr. Park for evaluation of the wounds. I also spoke with nurse, Jackie, who spoke with Dr. Servin, who has been covered by Dr. Barber. The patient is being evaluated for PEG placement. The patient also had multiple oral sores and she has been treated for that and will assess the oral ulcers. I will give her additional potassium replacement. Tristan Gutierrez MD
[2016-10-28 07:30] LABS: BLOOD UREA NITROGEN 7 mg/dL (7-21); CARBON DIOXIDE 30 mmol/L (21-33); CHLORIDE 108 mmol/L (98-107); GFR AFRICAN-AMERICAN > 60; GLUCOSE,RANDOM 117 mg/dL (70-110); MAGNESIUM 1.7 mg/dL (1.7-2.2); PHOSPHOROUS 1.8 mg/dL (2.5-4.5); POTASSIUM 3.9 mmol/L (3.6-5.0); SODIUM 144 mmol/L (132-148)
--- NOTE | 2016-10-28 11:00 | CP.PCM.PN ---
Subjective - Date & Time of Evaluation Date of Evaluation: 10/28/16 Time of Evaluation: 10:56 - Subjective Subjective: Gen Sx: Dr Park Pt S&E. NAEO. In good spirits. Resting comfortably. Pt expresses she does not want any aggressive intervention at this time. Objective - Vital Signs/Intake and Output Vital Signs (last 24 hours): Temp Pulse Resp BP Pulse Ox 97 F L 95 H 24 116/64 95 10/28/16 07:00 10/28/16 07:00 10/28/16 07:00 10/28/16 07:00 10/28/16 07:00 Intake and Output: 10/28/16 10/28/16 06:59 18:59 Intake Total 1860 20 Output Total 500 Balance 1360 20 - Medications Medications: Current Medications Alprazolam (Xanax) 0.25 mg PO HS PRN; Protocol PRN Reason: Sleep Stop: 11/02/16 08:41 Benzocaine/Menthol (Cepacol Sore Throat) 1 monica [place] Q2H PRN PRN Reason: Sore Throat Collagenase (Santyl) 0 gm TOP DAILY [facility] Last Admin: 10/27/16 12:40 Dose: 1 appful Potassium Chloride 40 meq/ (Dextrose/Sodium Chloride) 1,020 mls @ 75 mls/hr IV .[id number] [facility] Last Admin: 10/27/16 22:58 Dose: 75 mls/hr Lidocaine HCl (Lidocaine 2% Viscous) 15 ml PO Q3H PRN PRN Reason: Pain, Mild (1-3) Last Admin: 10/28/16 06:53 Dose: 15 ml Megestrol Acetate (Megace) 400 mg PO DAILY [facility] Last Admin: 10/27/16 11:06 Dose: 400 mg Nystatin (Nystatin Oral Susp) 5 ml PO QID [facility] Last Admin: 10/27/16 22:56 Dose: 5 ml - Labs Labs: 10/27/16 06:30 10/28/16 07:00 - Constitutional Appears: Non-toxic, No Acute Distress - ENT Exam ENT Exam: Mucous Membranes Moist - Respiratory Exam Respiratory Exam: absent: Accessory Muscle Use, Respiratory Distress - Rectal Exam Additional comments: unstageable sacral ulcer with hard eschar - Neurological Exam Neurological Exam: Alert, Awake, Oriented x3 - Psychiatric Exam Psychiatric exam: Normal Affect, Normal Mood Assessment and Plan - Assessment and Plan (Free Text) Assessment: 86F with unstageable sacral wound Plan: continue santyl to wound daily no need for surgical debridement please reconsult as necessary d/w Dr Park who has seen and evaluated the pt Shane Murray, PGY3
[2016-10-28] MEDS: Collagenase 250 Units/gm Ointment(30 gm) TOP SCH (11:12)
[2016-10-28] MEDS: Megestrol Acetate 40 mg/ml Cup PO SCH (11:15)
[2016-10-28] MEDS: Nystatin 100,000 Units/ml Oral Susp 5 ml UD PO SCH ×4 (11:16→22:40)
--- NOTE | 2016-10-28 12:06 | CP.PCM.PN ---
Subjective - Date & Time of Evaluation Date of Evaluation: 10/28/16 Time of Evaluation: 08:55 - Subjective Subjective: Seen and examined at the bedside earlier this morning, the patient was eating her breakfast. No acute overnight events reported. She denies any nausea, vomiting and dysphagia or abdominal pain. Patient appears more alert,awake and interactive this morning. She spoke to me in tagalog saying "Salamat" which means "thank you". Objective - Vital Signs/Intake and Output Vital Signs (last 24 hours): Temp Pulse Resp BP Pulse Ox 97 F L 95 H 24 116/64 95 10/28/16 07:00 10/28/16 07:00 10/28/16 07:00 10/28/16 07:00 10/28/16 07:00 Intake and Output: 10/28/16 10/28/16 06:59 18:59 Intake Total 1860 20 Output Total 500 Balance 1360 20 - Medications Medications: Current Medications Alprazolam (Xanax) 0.25 mg PO HS PRN; Protocol PRN Reason: Sleep Stop: 11/02/16 08:41 Benzocaine/Menthol (Cepacol Sore Throat) 1 mon[place] MT Q2H PRN PRN Reason: Sore Throat Collagenase (Santyl) 0 gm TOP DAILY [facility] Last Admin: 10/28/16 11:12 Dose: 1 appful Potassium Chloride 40 meq/ (Dextrose/Sodium Chloride) 1,020 mls @ 75 mls/hr IV .[id number] [facility] Last Admin: 10/27/16 22:58 Dose: 75 mls/hr Lidocaine HCl (Lidocaine 2% Viscous) 15 ml PO Q3H PRN PRN Reason: Pain, Mild (1-3) Last Admin: 10/28/16 06:53 Dose: 15 ml Megestrol Acetate (Megace) 400 mg PO DAILY [facility] Last Admin: 10/28/16 11:15 Dose: Not Given Nystatin (Nystatin Oral Susp) 5 ml PO QID [facility] Last Admin: 10/28/16 11:16 Dose: Not Given - Labs Labs: 10/27/16 06:30 10/28/16 07:00 - Constitutional Appears: No Acute Distress, Cachectic - Eye Exam Eye Exam: Normal appearance. absent: Scleral icterus - ENT Exam Additional comments: lips dry/crusty, no bleeding, oral sores present, no bleeding noted - Neck Exam Neck Exam: Normal Inspection - Respiratory Exam Respiratory Exam: Decreased Breath Sounds, NORMAL BREATHING PATTERN. absent: Respiratory Distress - Cardiovascular Exam Cardiovascular Exam: +S1, +S2 - GI/Abdominal Exam GI & Abdominal Exam: Soft, Normal Bowel Sounds. absent: Guarding, Tenderness, Rebound - Extremities Exam Extremities Exam: Normal Capillary Refill. absent: Calf Tenderness, Pedal Edema - Neurological Exam Neurological Exam: Alert, Awake, Oriented x3 - Skin Skin Exam: Dry, Warm Assessment and Plan - Assessment and Plan (Free Text) Assessment: Assessment: Malnutrition Oral cavity sores Failure to thrive Anemia History of pelvic fracture Sacral pressure ulcer Cholelithiasis Plan: continue diet to finely chopped bland citrus free diet on calorie count on Nystatin on Megace Oral care surgury FU for decubitus Patient now DNR/DNI Spoke to the patient this morning who is awake alert and oriented regarding feeding tube, the patient was adamant that she did not want a feeding tube. Will continue current diet and Ensure Seen and discussed with Dr. Barber who is covering for Dr. Servin.
[2016-10-28] MEDS: Potassium Chloride 40 MEQ in Dextrose 5%/0.9% NS 1,000 ML IV SCH (15:15)
[2016-10-28] MEDS: Prostat 15 g packet PO SCH ×2 (16:37→17:30)
--- NOTE | 2016-10-28 19:57 | PN ---
DATE: 10/28/2016 SUBJECTIVE: The patient has no complaints of any chest pain. No shortness of breath or headache. PHYSICAL EXAMINATION: VITAL SIGNS: Temperature is 97.3, pulse of 83, blood pressure is 102/51, and respirations are 23. GENERAL: The patient is lying in bed, flat, comfortable. HEENT: No oral lesion. Anicteric sclerae. Moist mucosa. NECK: No JVD, adenopathy, or thyromegaly. CARDIOVASCULAR: S1 and S2, regular. No murmurs, rubs, or gallops. LUNGS: Clear to auscultation bilaterally. No wheeze, rales, or rhonchi. ABDOMEN: Bowel sounds are positive, soft, nontender and nondistended. EXTREMITIES: no cyanosis, clubbing or edema. LABORATORY DATA: Creatinine 0.4. ASSESSMENT: 1. Oral ulcerations. 2. Failure to thrive. 3. Pressure ulcer in sacral area, unstageable. 4. Malnutrition. 5. Anemia, iron deficiency type. 6. Osteoporosis. 7. Cholelithiasis. 8. Do not resuscitate/do not intubate. PLAN: The patient is currently comfortable. She does not eating. She does not wish to have a feeding tube. The patient is receiving IV fluids. She is on Megace. She is on Xanax. She is getting local wound care. The patient is on a dysphagia diet. She is DNR/DNI. Overall prognosis is guarded. She was seen by ENT. The patient's family is asked for second opinion, but unfortunately we do not have another ENT group. We will try to get re-consultation and also we will get ID to evaluate for the oral ulcers as well. Tristan Gutierrez MD
--- NOTE | 2016-10-28 20:52 | CON ---
DATE: 10/27/2016 ADDENDUM Addendum to consultation by Eliana Mejia. I have examined and seen this patient personally. She is a unfortunate 86-year-old female status post recent left hip replacement, who over the last several weeks has had poor oral intake and throat pain as well as pain with swallowing and difficulty swallowing. She has multiple large sacral decubitus and heel ulcers. She is also noted to be anemic. The patient herself does not want a PEG tube placement. We will abide by her wishes. There is no clear cut clinical indication for PEG placement. At this time, we try symptomatic treatment of her throat pain including lidocaine gel, Cepacol lozenges and attempt to feed the patient with a mechanical diet, observing the patient closely for aspiration of food. The patient is agreeable with this plan. Clark Barber MD
[2016-10-29] MEDS: Potassium Chloride 40 MEQ in Dextrose 5%/0.9% NS 1,000 ML IV SCH ×2 (06:13→14:17)
[2016-10-29] MEDS ORDERED: Phenol Topical 1.4% Throat Spray (180 ml) MT PRN (10:17)
[2016-10-29] MEDS: Nystatin 100,000 Units/ml Oral Susp 5 ml UD PO SCH ×4 (10:30→22:27)
[2016-10-29] MEDS: Prostat 15 g packet PO SCH ×2 (11:17→18:04)
--- NOTE | 2016-10-29 11:56 | CP.PCM.PN ---
Subjective - Date & Time of Evaluation Date of Evaluation: 10/29/16 Time of Evaluation: 09:00 - Subjective Subjective: Lethargic,refusing breakfast Objective - Vital Signs/Intake and Output Vital Signs (last 24 hours): Temp Pulse Resp BP Pulse Ox 97.8 F 74 24 130/70 99 10/29/16 07:42 10/29/16 07:42 10/29/16 07:42 10/29/16 07:42 10/29/16 07:42 Intake and Output: 10/29/16 10/29/16 06:59 18:59 Intake Total 1980 Output Total 600 Balance 1380 - Medications Medications: Current Medications Alprazolam (Xanax) 0.25 mg PO HS PRN; Protocol PRN Reason: Sleep Stop: 11/02/16 08:41 Benzocaine/Menthol (Cepacol Sore Throat) 1 monica MT Q2H PRN PRN Reason: Sore Throat Collagenase (Santyl) 0 gm TOP DAILY [facility] Last Admin: 10/28/16 11:12 Dose: 1 appful Potassium Chloride 40 meq/ (Dextrose/Sodium Chloride) 1,020 mls @ 75 mls/hr IV .[id number] [facility] Last Admin: 10/29/16 06:13 Dose: 75 mls/hr Piperacillin Sod/Tazobactam Sod (Zosyn 3.375 In Ns 100ml) 100 mls @ 200 mls/hr IVPB Q6 [facility] PRN Reason: Protocol Stop: 11/07/16 12:01 Lidocaine HCl (Lidocaine 2% Viscous) 15 ml PO Q3H PRN PRN Reason: Pain, Mild (1-3) Last Admin: 10/29/16 06:14 Dose: 15 ml Megestrol Acetate (Megace) 400 mg PO DAILY [facility] Last Admin: 10/28/16 11:15 Dose: Not Given Nystatin (Nystatin Oral Susp) 5 ml PO QID [facility] Last Admin: 10/28/16 22:40 Dose: 5 ml Phenol/Menthol (Phenaseptic 1.4% Throat [place]) 0 ml MT Q2H PRN PRN Reason: Pain, Mild (1-3) - Labs Labs: 10/27/16 06:30 10/28/16 07:00 - Constitutional Appears: Cachectic, Chronically Ill - Eye Exam Eye Exam: Normal appearance, PERRL - ENT Exam ENT Exam: Mucous Membranes Moist Additional comments: ulcers in oral cavity and tongue - Respiratory Exam Respiratory Exam: Decreased Breath Sounds, NORMAL BREATHING PATTERN - Cardiovascular Exam Cardiovascular Exam: REGULAR RHYTHM, +S1, +S2 - GI/Abdominal Exam GI & Abdominal Exam: Soft, Diminished Bowel Sounds - Extremities Exam Additional comments: + pedal pulses - Back Exam Additional comments: unstageable sacral decubiti - Skin Skin Exam: Dry, Pallor Assessment and Plan - Assessment and Plan (Free Text) Assessment: 86 year old female admitted with weakness, anemia, dysphagia, sore throat Patient is lethargic, wants to sleep. Swallow exam done, MANAGEMENT ACCOUNTS MANAGER recommending patient be made NPO. Phenaseptic spray to oral cavity Patient remains DNR/DNI. Family working with case management department for home needs upon discharge
--- NOTE | 2016-10-29 13:07 | US ---
HISTORY: SIZE OF CBD COMPARISON: And pelvis CT exam 09/13/2016 and nuclear hepatobiliary scan 09/15/2016. TECHNIQUE: Sonographic evaluation of the abdomen. FINDINGS: LIVER: Measures 19.4 cm. Normal echogenicity of the liver parenchyma. No mass. No intrahepatic bile duct dilatation. GALLBLADDER: Gallbladder is mildly distended with thick wall measuring 3.0 mm and trace pericholecystic fluid/edema. Cholelithiasis and sludge layering the dependent portion of gallbladder. The entire gallbladder lumen may be filled with sludge in fact. Common bile duct is upper limits of normal caliber at 6.9 mm, particularly given the patient's age of 86 years age (not prominent dilatation). COMMON BILE DUCT: Measures 6.9 mm. No stones. No dilatation. PANCREAS: Unremarkable as visualized. No mass. No ductal dilatation. RIGHT KIDNEY: Measures 13.8 x 4.4 x 3 point acm. No solid masses appreciated or urolithiasis. There is no hydronephrosis. A lower pole simple cysts also identified measuring 4.2 x 3.8 cm. LEFT KIDNEY: Measures 11.2 x 4.7 x 5.5cm. A small simple cyst is seen at the midpole laterally, measuring 2.3 x 2.5 cm. No solid parenchymal mass or urolithiasis is identified. There is no hydronephrosis. SPLEEN: Normal in size and contour. No mass. AORTA: No aneurysmal dilatation. IVC: Unremarkable. OTHER FINDINGS: None. IMPRESSION: 1. Mild hepatomegaly without focal mass identified. 2. Sludge and calculi fill the gallbladder lumen which is moderately distended. Mild mural thickening up to 3.0 mm identified suspicious for cholecystitis. Clinically correlate further. Upper limits normal CBD caliber. 3. Solitary simple cysts identified each kidney.
[2016-10-29] MEDS: Megestrol Acetate 40 mg/ml Cup PO SCH (14:16)
[2016-10-29] MEDS: Collagenase 250 Units/gm Ointment(30 gm) TOP SCH (14:17)
[2016-10-29] MEDS: Piperacillin/Tazobact 3.375 gm 100 ML IVPB SCH ×2 (14:20→18:03)
--- NOTE | 2016-10-29 15:49 | CON ---
DATE: 10/29/2016 CHIEF COMPLAINT: Weakness from several days. HISTORY OF PRESENT ILLNESS: This is an 86-year-old female with past medical history of pelvic fractures and osteoporosis and also with history of gallstones, urinary incontinence, arthritis, dementia, anemia, history of right hip replacement and was admitted to the emergency room, was seen by Dr. Steven Fuentes. Overall very frail. Decreased appetite. Failure to thrive and Infectious Disease consult patient requested because of oral ulcers. REVIEW OF SYSTEMS: Reveals the patient to be a poor historian and overall has been low-grade fevers. No chills reported. No chest pain. No abdominal pain, diarrhea or constipation. PAST MEDICAL HISTORY: Significant for pelvic fracture, osteoporosis, gallstones, urinary incontinence, dementia, anemia, and arthritis. PAST SURGICAL HISTORY: Significant for right hip replacement. ALLERGIES: NO KNOWN ALLERGIES. MEDICATIONS: At home includes, Xanax and Silvadene cream. PHYSICAL EXAMINATION: GENERAL: The patient is in bed, appears much, much older than her stated age of 86. She appears cachectic, chronically ill, poor conditioned, very frail woman. VITAL SIGNS: Temperature 99, heart rate of 97, respiratory rate 22, blood pressure 103/50. HEENT: Reveals oral cavity is in poor condition. Rather few ulcers are present. She has chronic changes and dry mucosa. No oral thrush and patient has dry lesions in her mouth due to severe mucositis. Examination of HEENT reveals temporal wasting. NECK: Supple. LUNGS: Decreased breath sounds. HEART: Normal S1 and S2. ABDOMEN: Soft and nontender. No organomegaly. No rebound. LABORATORY DATA: Reveals a white count of 7.6, hemoglobin of 7, platelets of 460. The patient has 78% granulocytosis. BUN of 14, creatinine of 0.4, alkaline phosphatase is 136, and AST is 80, and vitamin B12 of 995. Microbiology, the patient did have a gram negative lizzie in the urine in July of 2016. Blood cultures from January of 2013 are negative and the patient had a chest x-ray here, which revealed no active pulmonary disease and Dr. Gutierrez's note from yesterday is reviewed. Dr. Barber's consultation note is reviewed. ASSESSMENT AND PLAN: An 86-year-old female with history of pelvic fractures, osteoporosis, gallstones, urinary incontinence, arthritis, dementia, anemia with systemic inflammatory response syndrome with a heart rate of 97, respiratory rate of 22 with oral mucositis, multiple sacral ulcers, and heal ulcers. She is very frail, endstage appearing. We will order blood cultures x2, urine cultures, urinalysis, wound cultures, sputum cultures, and we will order an ultrasound of the abdomen to rule out any gallbladder disease and size of a common bile duct. The patient had a CAT scan of the abdomen and pelvis in August, which showed enlargement of the pancreatic head and atrophy and tail of pancreas and cholelithiasis without any evidence of cholecystitis and lytic lesion in the L3 vertebral body. The patient also had a HIDA scan at that time, suspicious for acute cystic duct obstruction, and Michelle Cosme's note is reviewed. We will start patient empirically on Zosyn, pending olivo cultures, GI workup, may consider repeat CT of the abdomen and pelvis. Overall prognosis quite poor for this patient, who is cachectic and endstage. Praveen Fish MD
[2016-10-30] MEDS: Potassium Chloride 40 MEQ in Dextrose 5%/0.9% NS 1,000 ML IV SCH ×2 (07:18→22:10)
[2016-10-30] MEDS: Piperacillin/Tazobact 3.375 gm 100 ML IVPB SCH ×4 (08:28→18:37)
[2016-10-30] MEDS: Megestrol Acetate 40 mg/ml Cup PO SCH (10:24)
[2016-10-30] MEDS: Nystatin 100,000 Units/ml Oral Susp 5 ml UD PO SCH ×4 (10:24→22:10)
[2016-10-30] MEDS: Collagenase 250 Units/gm Ointment(30 gm) TOP SCH (10:25)
[2016-10-30] MEDS: Prostat 15 g packet PO SCH ×2 (10:25→18:39)
[2016-10-30 12:16] LABS: URINE APPEARANCE CLEAR (CLEAR); URINE BILIRUBIN NEGATIVE (NEGATIVE); URINE BLOOD NEGATIVE (NEGATIVE); URINE COLOR YELLOW (YELLOW); URINE GLUCOSE (UA) NEGATIVE (NEGATIVE); URINE KETONE NEGATIVE (NEGATIVE); URINE LEUKOCYTE ESTERASE NEGATIVE Leu/uL (NEGATIVE); URINE PROTEIN NEGATIVE mg/dL (<30 mg/dL)
[2016-10-30 12:23] LABS: URINE BACTERIA MOD (NEG); URINE RBC 0 - 2 /hpf (0-2)
--- NOTE | 2016-10-30 15:21 | PN ---
DATE: 10/30/2016 SUBJECTIVE: Patient is in bed, in no acute distress, nontoxic. No fevers and no chills. PHYSICAL EXAMINATION VITAL SIGNS: Temperature is 98, blood pressure 120/70, respiratory rate of 16. HEENT: Improved oral lesions. NECK: Supple. LUNGS: Decreased breath sounds. HEART: Normal S1 and S2. ABDOMEN: Soft and nontender. LABORATORY DATA: Reveals white count of 7.2, hemoglobin of 9, platelets of 355. BUN of 7, creatinine of 0.4, procalcitonin 0.18. Microbiology reveals a gram negative lizzie in urine. The blood cultures are negative and no urinalysis was said although it was ordered. Patient had an abdominal ultrasound. No stones. A little dilatation measuring at 6.9 mm. Michelle Cosme's progress note from yesterday is reviewed and appreciated. ASSESSMENT AND PLAN: This is an 86-year-old female with history of pelvic fracture, osteoporosis, gallstones, and urinary incontinence, arthritis, dementia, anemia, (SIRS) Systemic Inflammatory Response Syndrome, and sepsis with gram negative lizzie in the urine, and mucositis. Gram negative lizzie in the urine is a source of the sepsis. Awaiting for the urinalysis and currently on Zosyn. Pending identification and sensitivity. The gram negative lizzie in the urine and also the urinalysis. We will order another urinalysis again today. Case discussed with Dr. Lopez. Praveen Fish MD
--- NOTE | 2016-10-30 18:23 | RAD ---
HISTORY: SOB COMPARISON: Chest x-ray performed 10/25/16 TECHNIQUE: Chest, one view. FINDINGS: LUNGS: Hyperinflation may be seen in the setting of COPD. Increased lucencies especially within the bilateral upper lung lassiter compatible with underlying emphysema. Right peritracheal opacity may reflect tortuous vasculature. Alternatives including underlying adenopathy are not excluded. Chronic appearing interstitial markings. Subtle patchy opacities within the left upper and right middle lobes possibly developing infiltrates. PLEURA: No significant pleural effusion identified. No definite pneumothorax . CARDIOVASCULAR: Heart size appears within normal limits. Dense atherosclerotic calcifications of the aortic knob. OSSEOUS STRUCTURES: Osseous demineralization. Degenerative changes of the spine and shoulders. VISUALIZED UPPER ABDOMEN: Unremarkable. OTHER FINDINGS: None. IMPRESSION: Appearance consistent with COPD/emphysema. Right paratracheal opacity may reflect tortuous vasculature. Alternatives including underlying adenopathy not excluded. Chronic appearing interstitial markings. Subtle patchy opacities within the left upper and right middle lobes possibly developing infiltrates. Recommend follow-up to resolution.
[2016-10-30 18:32] LABS: ARTERIAL BLOOD GAS HCO3 27.6 mmol/L (21-28); ARTERIAL BLOOD GAS O2 CONTENT 10.7 ML/dl (15-23); ARTERIAL BLOOD GAS PH 7.53 (7.35-7.45); CARBOXYHEMOGLOBIN 2.5 % (0.5-1.5); HHB 2.5 % (0-5)
--- NOTE | 2016-10-30 23:54 | PN ---
DATE: 10/30/2016 SUBJECTIVE: The patient has no complaints of any chest pain. No shortness of breath. No headaches. PHYSICAL EXAMINATION VITAL SIGNS: Temperature is 98.4, pulse of 104, blood pressure is 126/68, respirations are 18. GENERAL: The patient is lying in bed, flat, comfortable. HEENT: No oral lesion. Anicteric sclerae. Moist mucosa. NECK: No JVD, adenopathy, or thyromegaly. CARDIOVASCULAR: S1 and S2, regular. No murmurs, rubs, or gallops. LUNGS: Clear to auscultation bilaterally. No wheeze, rales, or rhonchi. ABDOMEN: Bowel sounds are positive, soft, nontender and nondistended. EXTREMITIES: No cyanosis, clubbing or edema. LABORATORY DATA: White count of 7.2, hemoglobin 9.4. Creatinine 0.4. ASSESSMENT: 1. Oral ulcerations. 2. Failure to thrive. 3. Malnutrition. 4. Pressure ulcer in the sacral area, unstageable. 5. Anemia, iron deficiency type. 6. Osteoporosis. 7. Cholelithiasis. 8. Do not resuscitate/do not intubate. PLAN: The patient is currently comfortable. The patient is currently on IV fluids. She is on megestrol. She is not eating well. The patient is also on protein. She is using Xanax as needed. She is on Zosyn for antibiotics. She has urine cultures that are positive. Overall prognosis is poor. The patient had an abdominal ultrasound done that showed mild hepatomegaly, there was sludge and calculi in the gallbladder, mild mural thickening, solitary simple cyst in each kidney. The patient's son has been coming to visit his mom. He has been upset that the patient has not been eating well. The patient does not wish to have CPR and hence the patient is DNR. She also does not wish to get a feeding tube. The patient's son had indicated that the patient was short of breath. She was evaluated by the nurse. Her oxygen level had improved after deep breathing. She may have atelectasis, but she is not able to ambulate well or get out of bed. I will get pulmonary to evaluate the patient. Tristan Gutierrez MD [facility] # [id number]
[2016-10-31] MEDS: Piperacillin/Tazobact 3.375 gm 100 ML IVPB SCH ×2 (00:10→05:24)
[2016-10-31] MEDS: Megestrol Acetate 40 mg/ml Cup PO SCH (09:38)
[2016-10-31] MEDS: Nystatin 100,000 Units/ml Oral Susp 5 ml UD PO SCH ×3 (09:39→22:41)
[2016-10-31] MEDS: Prostat 15 g packet PO SCH ×2 (09:39→18:17)
--- NOTE | 2016-10-31 11:54 | PN ---
DATE: 10/31/2016 SUBJECTIVE: The patient has no complaints of any chest pain or shortness of breath. She says she does not have a good appetite. PHYSICAL EXAMINATION VITAL SIGNS: Temperature is 98.6, pulse of 95, blood pressure is 128/66, and respirations are 22. GENERAL: The patient is lying in bed, flat, comfortable. HEENT: No oral lesion. Anicteric sclerae. Moist mucosa. NECK: No JVD, adenopathy, or thyromegaly. CARDIOVASCULAR: S1 and S2, regular. No murmurs, rubs, or gallops. LUNGS: Clear to auscultation bilaterally. No wheeze, rales, or rhonchi. ABDOMEN: Bowel sounds are positive, soft, nontender and nondistended. EXTREMITIES: No cyanosis, clubbing or edema. LABORATORY DATA: White count of 7.2, hemoglobin of 9.4, and creatinine is 0.4. ASSESSMENT: 1. Oral ulcerations. 2. Failure to thrive. 3. Malnutrition. 4. Pressure ulcer on the sacral area, unstageable. 5. Anemia, iron deficiency type. 6. Osteoporosis. 7. Cholelithiasis. 8. DO NOT RESUSCITATE/DO NOT INTUBATE. 9. Hypophosphatemia. 10. Urinary tract infection secondary to Klebsiella. PLAN: The patient is currently comfortable. She is not eating well. She has low procalcitonin level. She is on IV fluids. She is going to continue with Megace. She is on Rocephin for antibiotics. She has a urine culture that is positive for Klebsiella and Gram-negative rods. The patient is receiving Santyl for local wound care. She is on air mattress. She has significant mucositis. We will continue to follow closely. Tristan Gutierrez MD
[2016-10-31] MEDS: Potassium Chloride 40 MEQ in Dextrose 5%/0.9% NS 1,000 ML IV SCH (12:04)
[2016-10-31] MEDS: cefTRIAXone 1 gm 1 GM/100 ML BAG IVPB SCH (12:05)
[2016-10-31] MEDS: Potassium & Sodium Phosphate PO SCH ×2 (12:06→18:16)
[2016-10-31] MEDS: Albuterol-Ipratrop 3 mg / 0.5 (3 ml) UD IH SCH ×2 (13:38→20:07)
--- NOTE | 2016-10-31 13:46 | PN ---
DATE: 10/31/2016 LOCATION: The patient seen in bed in room #574. PHYSICAL EXAMINATION: GENERAL: No fevers and no chills. VITAL SIGNS: On exam, temperature is 98, blood pressure is 120/60, and respiratory rate is 16. HEENT: Unremarkable. NECK: Supple. LUNGS: Decreased breath sounds. HEART: Normal S1 and S2. ABDOMEN: Soft. LABORATORY DATA: Reveals a white count of 7.2, hemoglobin of 9, platelets of 355. Coagulation is noted. BUN of 7, creatinine of 0.4. Procalcitonin is 0.18. Urinalysis noted; microbiology reveals there is Klebsiella pneumoniae species and another gram-negative lizzie in the urine. It is pansensitive Klebsiella and urinalysis is not significant. Review of orders reveals the patient to be on Zosyn rather, and Dr. Lopez's note from yesterday is reviewed. The patient also had a chest x-ray done yesterday, subtle opacity, left upper lobe, developing infiltrates. ASSESSMENT AND PLAN: This is an 86-year-old female with pelvic fracture, osteoporosis, gallstones, urinary incontinence, arthritis, dementia, anemia with sepsis with a Klebsiella urinary tract infection and mucositis and pansensitive. We will switch to IV ceftriaxone and discontinue the Zosyn. We will follow with you. Praveen Fish MD
[2016-10-31] MEDS: Collagenase 250 Units/gm Ointment(30 gm) TOP SCH (14:14)
[2016-10-31] MEDS: Morphine 2 mg/ml ISec IVP PRN (18:06)
[2016-10-31] MEDS: guaiFENesin 600 mg ER Tab PO SCH (18:16)
[2016-10-31] MEDS: Budesonide 0.5 mg/2 ml Inhal Susp UD IH SCH (20:07)
[2016-10-31] MEDS: MethylPREDNISolone 40 mg Vial IV SCH (21:39)
--- NOTE | 2016-10-31 22:09 | CON ---
DATE: 10/31/2016 PULMONARY PROGRESS NOTE SUBJECTIVE: I was asked to see this patient because of fluctuating pulse oximetry. The family is at the bedside not knowing what is going on and asking nurses and doctors to explain the fluctuations noted. The patient is in no acute respiratory distress, but she has a long smoking history. She smokes more than two packs a day for many years in the last three month, has cutdown and almost discontinued although it is not clear. We had a long talk with multiple examiner visited at the bedside and discussed the full history and problems. The patient's history is that she has been bedridden at home for several months after fracturing one and then the contralateral hip. She is poorly compliant, but at bedrest refused that surgery the last time. She is not eating, she is deteriorating, she is failing to thrive. She was admitted to the hospital for those problems only when the patient's pulse oximetry decreased or pulmonary problems discussed. The patient has no additional pre-history. She does have occasional gurgling in her chest. No other symptoms are noted at that time. Her past history includes osteoporosis and pelvic fracture along smoking history. ALLERGIES: NO KNOWN ALLERGIES. SOCIAL HISTORY: She was a smoker for many years, recently decreased and possibly discontinued. FAMILY HISTORY: Negative. HOME MEDICATIONS: Metoprolol, tramadol, Xanax. REVIEW OF SYSTEMS: Has been discussed with the family at the bedside. They obviously concerned with the general failure to thrive, but did not add additional history that is not already documented. They have concern; however, is the fact that the pulse oximetry goes down and they hear noises emanating from her chest. No other history is available at this time and I will need to discuss further problems with Dr. Gutierrez who is seeing this patient in this hospital as well as being her pre PMD prior to this hospitalization. On physical exam the patient is resting comfortably in bed awake, alert, oriented, speaking very softly, but coherently she wants to rest. She does not really want to eat. She need supplemental feedings at this time and if this is unsuccessful, the patient will require possibly the use of a feeding tube. PHYSICAL EXAMINATION: GENERAL: The patient as described above is uncomfortable from the gurgling in the chest and generalized fatigue, generalized lethargy, but awake and alert and able to talk. VITAL SIGNS: Stable with a low grade fever, blood pressure which is hypertensive of 118/50, O2 saturation now is 97% on supplemental oxygen 2 L. HEENT: Normocephalic atraumatic. EYES: PERRLA. EOM is full. Conjunctivae pink. NECK: Supple. No JVD. No lymphadenopathy. No thyromegaly. No bruit. CARDIOVASCULAR: Regular rhythm. S1 and S2, without murmur, gallop, or rub. CHEST: Reveals global decrease in breath sounds. Scattered rhonchi and scatted wheezes throughout. There were upper airway secretion noises. There is increased AP diameter. ABDOMEN: Soft. Bowel sounds normoactive without mass, guarding, rebound or organomegaly. EXTREMITIES: Reveal no clubbing, cyanosis or edema. There is no Homans' sign. NEUROLOGIC: No focal findings. Motor, sensory, and coordination is not been able to fully be assessed as the patient is in bed. Her mental status is fine. Deep tendon reflexes is normal Babinski downgoing. SKIN: Shows no excoriations. NEUROLOGIC: Lymphadenopathy is not present in the supraclavicular notch nor in the cervical, inguinal or axillary areas. The mouth is dry and clustering and requires further mouth care. Clinically she appears dehydrated. LABORATORY DATA: Studies are as such, I have repeated the chest x-ray late last evening which although is read as clear does show flattening of the diaphragms and scarring consistent with long time smoking and other exposure. Blood work shows the white count is 7.2, hemoglobin 9, hematocrit 30, platelet count 355. Chemistry shows sodium of 144, chloride 108, creatinine 0.4, glucose 117 and calcium 8. Liver functions were slightly elevated. The blood gas that was done last night on my request shows pH of 7.53, PCO2 of 33, and PO2 of 64 consistent with increase in shallow breathing, increase breathing rate with some hypocapnia and hypoxemia. The patient needs to relax and slow down and supplemental oxygen is required according to the pulse ox; however, it varies between 99 and 94. The EKG sinus rhythm, nonspecific ST-T wave changes. CLINICAL ASSESSMENT: 1. Chronic obstructive pulmonary disease with flattening of the diaphragms, there is wheezing noted, there are rhonchi secondary to secretions that need further attempt. 2. Dehydration with clustering of the mouth which needs significant mouth care. 3. Malnutrition supplemental feedings with a pulmonary type feeding is suggested. This patient will need to be observed closely while eating if there is any evidence of aspiration, we may need to conceder a NG tube for further feeding. 4. Generalized weakness with failure to thrive. 5. Osteoporosis. 6. Pressure ulcers in the sacral area. PLAN: As described above suctioning, chest precautions, incentive spirometry are must, inhaled bronchodilator and corticosteroids will be given, if necessary we will add an anticholinergic later. The patient will require feeding with pulmonary care if available. Monitoring this closely is essential to rule out aspiration. Beside the need for further intervention, a chest x-ray appears to be chronic in nature and not acute, but we will follow closely. WE HAVE DISCUSSED WITH THE FAMILY AND NOTE ON THE CHART THAT THE PATIENT IS A DO NOT RESUSCITATE/DO NOT INTUBATE, BUT THEY REQUEST CONSIDERABLE INTERVENTION AND MAKE SURE THAT ALL WAS DONE TO HELP HER. WE WILL FOLLOW CLOSELY WITH YOU AT THE SIDE OF NEED FOR FURTHER INTERVENTION BASED ON CLINICAL STATUS I WILL TURN OVER THIS CASE TO DR. BARBA FROM TUESDAY AND DR. BOBO FOR TUESDAY AND THERE AFTER WE WILL BE HAPPY TO SEE THIS PATIENT NECESSARY AND I WOULD BE HAPPY TO SEE HER IN THE OFFICE IF SHE IS MOBILE AND CAN GET AROUND. Jun Frausto MD MTDD
[2016-11-01] MEDS: Albuterol-Ipratrop 3 mg / 0.5 (3 ml) UD IH SCH ×4 (02:31→20:33)
[2016-11-01] MEDS: Budesonide 0.5 mg/2 ml Inhal Susp UD IH SCH ×2 (07:11→20:33)
[2016-11-01] MEDS: cefTRIAXone 1 gm 1 GM/100 ML BAG IVPB SCH (11:10)
[2016-11-01] MEDS: guaiFENesin 600 mg ER Tab PO SCH (11:12)
[2016-11-01] MEDS: Potassium & Sodium Phosphate PO SCH ×2 (11:12→17:34)
[2016-11-01] MEDS: Nystatin 100,000 Units/ml Oral Susp 5 ml UD PO SCH ×4 (11:12→21:43)
[2016-11-01] MEDS: Megestrol Acetate 40 mg/ml Cup PO SCH (11:14)
--- NOTE | 2016-11-01 11:39 | PN ---
DATE: 11/01/2016 SUBJECTIVE: The patient has no complaints of any chest pain or shortness of breath. She still has not been eating well. PHYSICAL EXAMINATION: VITAL SIGNS: Temperature is 98.9, pulse of 89, blood pressure is 120/62, respirations 20. GENERAL: The patient is lying in bed, flat, comfortable. HEENT: Minimal ulcers present and significant improvement from previous examinations. Anicteric sclerae. Moist mucosa. NECK: No JVD, adenopathy, or thyromegaly. CARDIOVASCULAR: S1 and S2, regular. No murmurs, rubs, or gallops. LUNGS: Clear to auscultation bilaterally. No wheeze, rales, or rhonchi. ABDOMEN: Bowel sounds are positive, soft, nontender and nondistended. EXTREMITIES: No cyanosis, clubbing or edema. ASSESSMENT: 1. Oral ulcer/mucositis. 2. Failure to thrive. 3. Malnutrition. 4. Pressure ulcer in sacral area, unstageable. 5. Anemia, iron deficiency type. 6. Osteoporosis. 7. Cholelithiasis. 8. Hypophosphatemia. 9. Urinary tract infection secondary to Klebsiella. 10. Do not resuscitate/do not intubate. PLAN: The patient is currently comfortable. The patient's blood cultures have been negative. The patient has urine culture that shows Klebsiella, but repeat culture showed 10,000 to 50,000 colonies. I had a long discussion with the patient's daughter, John, about the patient's plan and prognosis yesterday as well as today. They feel that the patient should get a feeding tube. The patient herself says that she does not want feeding tube. They suggested PPN while the patient's mucositis/oral ulcers have improved, so she can eat. I did advise them that this is a temporary measure and that she is slowly declining and the PPN will most likely not benefit her. We will still like to give her PPN, I have written an order for PPN. I will discontinue IV fluids once the PPN is started. She has low phosphorus, I will add phosphorus to her medications. She is on Rocephin for antibiotics. She is being followed by multiple consultants. I will have surgery to reevaluate the patient's wounds. The patient's family is going to speak with GI regarding PEG placement. I will also get psychiatric evaluation to see if the patient is able to make decisions for herself. She is DNR and DNI. She is on dysphagia diet, but refuses to eat much. Overall prognosis is poor. Continue with advanced end-of-life planning. Tristan Gutierrez MD
[2016-11-01] MEDS: MethylPREDNISolone 40 mg Vial IV SCH ×2 (11:40→21:43)
--- NOTE | 2016-11-01 11:51 | RAD ---
HISTORY: Lower Abdominal Pain COMPARISON: Abdomen ultrasound performed 10/29/16. FINDINGS: BOWEL: Nonspecific bowel gas pattern without evidence of obstruction. No definite free air. BONES: Diffuse osseous demineralization limits evaluation for acute fracture lines. Extensive multilevel degenerative changes of the spine. Partially imaged bilateral hip arthroplasties. OTHER FINDINGS: None. IMPRESSION: Nonspecific bowel gas pattern without evidence of obstruction.
[2016-11-01] MEDS: Morphine 2 mg/ml ISec IVP PRN ×2 (12:39→16:36)
[2016-11-01] MEDS: Prostat 15 g packet PO SCH ×2 (13:48→17:29)
[2016-11-01] MEDS ORDERED: guaiFENesin 200 mg/10 ml Syrup UD PO PRN (13:53)
--- NOTE | 2016-11-01 14:18 | PN ---
SUBJECTIVE: The patient is in bed, in no acute distress, nontoxic. PHYSICAL EXAMINATION VITAL SIGNS: Temperature is 98, blood pressure 120/60, respiratory rate of 22, heart rate of 93. HEENT: Unremarkable. NECK: Supple. LUNGS: Decreased breath sounds. HEART: Normal S1 and S2. ABDOMEN: Soft. LABORATORY DATA: Reveals the patient's urine culture has Klebsiella and cultures gram-negative lizzie, and blood cultures are negative, and her white count has been normal. Urinalysis is unremarkable. REVIEW OF SYSTEMS: Reveals the patient to be on ceftriaxone and Solu-Medrol. ASSESSMENT AND PLAN: This is an 86-year-old female with pelvic fracture, osteoporosis, gallstones, urinary incontinence, arthritis, dementia, anemia, sepsis with Klebsiella and gram-negative lizzie in the urine is a source and mucositis, currently on ceftriaxone. We will complete short course of antibiotics. The patient is very pale and failure to thrive. Discussed with PMD. Praveen Fish MD
--- NOTE | 2016-11-01 20:22 | PN ---
DATE: 11/01/2016 PULMONARY PROGRESS NOTE SUBJECTIVE: The patient was seen and examined at bedside. She is currently receiving inhalation treatment with DuoNeb with added budesonide. She is also on Rocephin as an intravenous antibiotic and low-dose Solu-Medrol. Overall appears improved and states she is less short of breath. PHYSICAL EXAMINATION: VITAL SIGNS: Her temperature 98.9, pulse 84, respirations 20, pulse oximetry is 96% on nasal cannula, blood pressure 120/63. There is no new laboratory data to review. HEAD, EYES, EAR, NOSE AND THROAT: Is within normal limits. NECK: Supple with no jugular vein distention. CHEST: Symmetrical. HEART: S1 and S2, no S3, regular. LUNGS: Diminished breath sounds at both bases with few end expiratory wheezes, no crackles. GASTROINTESTINAL: Soft, nontender. There is organomegaly. EXTREMITIES: No pedal edema. SKIN: Clear with no skin cyanosis and no skin rashes. NEUROLOGIC: Limited at the present time. ASSESSMENT: Acute on chronic obstructive pulmonary disease exacerbation, urinary tract infection, failure to thrive and decubitus ulcer in sacral area. PLAN: 1. From a pulmonary standpoint, the patient is doing better. She states that her breathing has improved. She is no longer in acute distress. 2. Dehydration is resolving with judicious administration of intravenous fluids. Nebulizer treatments will continue, would continue with low-dose Solu-Medrol. Antibiotics, she is being on Rocephin. Dr. Kenney will start following her tomorrow. Masood Porter MD
--- NOTE | 2016-11-01 21:29 | CP.PCM.PN ---
Subjective - Date & Time of Evaluation Date of Evaluation: 10/26/16 Time of Evaluation: 10:00 - Subjective Subjective: Comfortable in bed. Unable to swallow due to odynophagia. No fever, cough. Cachexia. UTI , positive urine culture. Family insisting on feeding tube. Pelvic fracture, no pain. Objective - Vital Signs/Intake and Output Vital Signs (last 24 hours): Temp Pulse Resp BP Pulse Ox 98 F 92 H 20 148/120 H 96 11/01/16 16:12 11/01/16 16:12 11/01/16 16:12 11/01/16 16:12 11/01/16 07:59 - Medications Medications: Current Medications Albuterol/Ipratropium (Duoneb 3 Mg/0.5 Mg (3 Ml) Ud) 3 ml IH [id number] [facility] Last Admin: 11/01/16 20:33 Dose: 3 ml Alprazolam (Xanax) 0.25 mg PO HS PRN; Protocol PRN Reason: Sleep Stop: 11/02/16 08:41 Last Admin: 10/30/16 22:10 Dose: 0.25 mg Benzocaine/Menthol (Cepacol Sore Throat) 1 monica MT Q2H PRN PRN Reason: Sore Throat Budesonide (Pulmicort Respules) 0.5 mg IH BIDRESP [facility] Last Admin: 11/01/16 20:33 Dose: 0.5 mg Collagenase (Santyl) 0 gm TOP DAILY [facility] Last Admin: 10/31/16 14:14 Dose: Not Given Guaifenesin (Mucinex La) 600 mg PO BID [facility] Last Admin: 11/01/16 11:12 Dose: 600 mg Guaifenesin (Robitussin) 200 mg PO Q4H PRN PRN Reason: Cough and congestion Potassium Chloride 40 meq/ (Dextrose/Sodium Chloride) 1,020 mls @ 75 mls/hr IV .[id number] [facility] Last Admin: 10/31/16 12:04 Dose: 75 mls/hr Ceftriaxone Sodium (Rocephin 1 Gram Ivpb) 1 gm in 100 mls @ 100 mls/hr IVPB DAILY [facility] PRN Reason: Protocol Stop: 11/09/16 10:01 Last Admin: 11/01/16 11:10 Dose: 100 mls/hr Multivitamins/Vitamin C 10 ml/Amino Acids/Electrolytes/Dextrose 2,010 mls @ 83 mls/hr IV .Q24H [facility] Last Admin: 11/01/16 18:05 Dose: 83 mls/hr Lidocaine HCl (Lidocaine 2% Viscous) 15 ml PO Q3H PRN PRN Reason: Pain, Mild (1-3) Last Admin: 11/01/16 09:03 Dose: 15 ml Megestrol Acetate (Megace) 400 mg PO DAILY [facility] Last Admin: 11/01/16 11:14 Dose: 400 mg Methylprednisolone (Solu-Medrol) 20 mg IV Q12 [facility] Last Admin: 11/01/16 11:40 Dose: 20 mg Morphine Sulfate (Morphine) 2 mg IVP Q4H PRN PRN Reason: GI distress Last Admin: 11/01/16 16:36 Dose: 2 mg Nystatin (Nystatin Oral Susp) 5 ml PO QID [facility] Last Admin: 11/01/16 17:34 Dose: 5 ml Phenol/Menthol (Phenaseptic 1.4% Throat [place]) 0 ml MT Q2H PRN PRN Reason: Pain, Mild (1-3) Last Admin: 10/31/16 12:06 Dose: 3 spray Potassium Phos/Sodium Phos (Neutra-Phos) 1 pkt PO BID [facility] Stop: 11/05/16 10:01 Last Admin: 11/01/16 17:34 Dose: 1 pkt - Labs Labs: 10/27/16 06:30 10/28/16 07:00 - Constitutional Appears: Cachectic - Head Exam Head Exam: ATRAUMATIC, NORMAL INSPECTION, NORMOCEPHALIC - Eye Exam Eye Exam: Normal appearance - ENT Exam ENT Exam: Mucous Membranes Moist - Neck Exam Neck Exam: Normal Inspection - Respiratory Exam Respiratory Exam: Clear to Ausculation Bilateral, NORMAL BREATHING PATTERN - Cardiovascular Exam Cardiovascular Exam: REGULAR RHYTHM, +S1, +S2 - GI/Abdominal Exam GI & Abdominal Exam: Soft, Normal Bowel Sounds - Extremities Exam Extremities Exam: Normal Inspection - Back Exam Back Exam: NORMAL INSPECTION - Neurological Exam Neurological Exam: Alert, Awake, Oriented x3 - Skin Skin Exam: Normal Color, Warm Assessment and Plan - Assessment and Plan (Free Text) Assessment: 1. Cachexia 2. iron deficiency anemia 3. pelvic fracture 4. UTI 5. Failure to thrive Plan : IV antibiotics as per ID. iron deficiency anemia. one dose of IV iron 200 mg. Discussion going on with family regarding feeding. Work up for oral ulcers. Decub back- surgery following. Discussed with the daughter.
--- NOTE | 2016-11-01 21:36 | CP.PCM.PN ---
Subjective - Date & Time of Evaluation Date of Evaluation: 10/28/16 Time of Evaluation: 09:00 - Subjective Subjective: Complaining of fatigue, oral ulcers. Not able to swallow. No fever, cough. Not ambulating. Back deccub. Objective - Vital Signs/Intake and Output Vital Signs (last 24 hours): Temp Pulse Resp BP Pulse Ox 98 F 92 H 20 148/120 H 96 11/01/16 16:12 11/01/16 16:12 11/01/16 16:12 11/01/16 16:12 11/01/16 07:59 - Medications Medications: Current Medications Albuterol/Ipratropium (Duoneb 3 Mg/0.5 Mg (3 Ml) Ud) 3 ml IH [id number] [facility] Last Admin: 11/01/16 20:33 Dose: 3 ml Alprazolam (Xanax) 0.25 mg PO HS PRN; Protocol PRN Reason: Sleep Stop: 11/02/16 08:41 Last Admin: 10/30/16 22:10 Dose: 0.25 mg Benzocaine/Menthol (Cepacol Sore Throat) 1 monica MT Q2H PRN PRN Reason: Sore Throat Budesonide (Pulmicort Respules) 0.5 mg IH BIDRESP [facility] Last Admin: 11/01/16 20:33 Dose: 0.5 mg Collagenase (Santyl) 0 gm TOP DAILY [facility] Last Admin: 10/31/16 14:14 Dose: Not Given Guaifenesin (Mucinex La) 600 mg PO BID [facility] Last Admin: 11/01/16 11:12 Dose: 600 mg Guaifenesin (Robitussin) 200 mg PO Q4H PRN PRN Reason: Cough and congestion Potassium Chloride 40 meq/ (Dextrose/Sodium Chloride) 1,020 mls @ 75 mls/hr IV .[id number] [facility] Last Admin: 10/31/16 12:04 Dose: 75 mls/hr Ceftriaxone Sodium (Rocephin 1 Gram Ivpb) 1 gm in 100 mls @ 100 mls/hr IVPB DAILY [facility] PRN Reason: Protocol Stop: 11/09/16 10:01 Last Admin: 11/01/16 11:10 Dose: 100 mls/hr Multivitamins/Vitamin C 10 ml/Amino Acids/Electrolytes/Dextrose 2,010 mls @ 83 mls/hr IV .Q24H [facility] Last Admin: 11/01/16 18:05 Dose: 83 mls/hr Lidocaine HCl (Lidocaine 2% Viscous) 15 ml PO Q3H PRN PRN Reason: Pain, Mild (1-3) Last Admin: 11/01/16 09:03 Dose: 15 ml Megestrol Acetate (Megace) 400 mg PO DAILY [facility] Last Admin: 11/01/16 11:14 Dose: 400 mg Methylprednisolone (Solu-Medrol) 20 mg IV Q12 [facility] Last Admin: 11/01/16 11:40 Dose: 20 mg Morphine Sulfate (Morphine) 2 mg IVP Q4H PRN PRN Reason: GI distress Last Admin: 11/01/16 16:36 Dose: 2 mg Nystatin (Nystatin Oral Susp) 5 ml PO QID [facility] Last Admin: 11/01/16 17:34 Dose: 5 ml Phenol/Menthol (Phenaseptic 1.4% Throat [place]) 0 ml MT Q2H PRN PRN Reason: Pain, Mild (1-3) Last Admin: 10/31/16 12:06 Dose: 3 spray Potassium Phos/Sodium Phos (Neutra-Phos) 1 pkt PO BID [facility] Stop: 11/05/16 10:01 Last Admin: 11/01/16 17:34 Dose: 1 pkt - Labs Labs: 10/27/16 06:30 10/28/16 07:00 - Constitutional Appears: Cachectic, Chronically Ill - Head Exam Head Exam: ATRAUMATIC, NORMAL INSPECTION, NORMOCEPHALIC - Eye Exam Eye Exam: Normal appearance Pupil Exam: NORMAL ACCOMODATION - ENT Exam ENT Exam: Mucous Membranes Moist, Normal Exam - Neck Exam Neck Exam: Normal Inspection - Respiratory Exam Respiratory Exam: Clear to Ausculation Bilateral, NORMAL BREATHING PATTERN - Cardiovascular Exam Cardiovascular Exam: REGULAR RHYTHM, +S1, +S2 - GI/Abdominal Exam GI & Abdominal Exam: Soft, Normal Bowel Sounds - Extremities Exam Extremities Exam: Normal Inspection - Back Exam Back Exam: NORMAL INSPECTION - Neurological Exam Neurological Exam: Alert, Normal Gait, Oriented x3 - Skin Skin Exam: Normal Color, Warm Assessment and Plan - Assessment and Plan (Free Text) Assessment: 1. Cachexia 2. iron deficiency anemia 3. pelvic fracture 4. UTI 5. Failure to thrive 6. oral ulcers Plan : IV antibiotics as per ID. iron deficiency anemia. s/p one dose of IV iron 200 mg Hb/Hct stable. . Discussion going on with family regarding feeding. Work up for oral ulcers. Decub back- surgery following. TPN as per Dr. Piña. Patient refusing feeding tube. GI following.
--- NOTE | 2016-11-01 21:54 | CP.PCM.PN ---
Subjective - Date & Time of Evaluation Date of Evaluation: 10/29/16 Time of Evaluation: 10:00 - Subjective Subjective: Comfortable in bed. No pain. No issues overnight. On megace. Poor PO intake. Objective - Vital Signs/Intake and Output Vital Signs (last 24 hours): Temp Pulse Resp BP Pulse Ox 98 F 92 H 20 148/120 H 96 11/01/16 16:12 11/01/16 16:12 11/01/16 16:12 11/01/16 16:12 11/01/16 07:59 Intake and Output: 11/01/16 11/02/16 18:59 06:59 Intake Total 300 Output Total 300 Balance 0 - Medications Medications: Current Medications Albuterol/Ipratropium (Duoneb 3 Mg/0.5 Mg (3 Ml) Ud) 3 ml IH [id number] [facility] Last Admin: 11/01/16 20:33 Dose: 3 ml Alprazolam (Xanax) 0.25 mg PO HS PRN; Protocol PRN Reason: Sleep Stop: 11/02/16 08:41 Last Admin: 10/30/16 22:10 Dose: 0.25 mg Benzocaine/Menthol (Cepacol Sore Throat) 1 monica MT Q2H PRN PRN Reason: Sore Throat Budesonide (Pulmicort Respules) 0.5 mg IH BIDRESP [facility] Last Admin: 11/01/16 20:33 Dose: 0.5 mg Collagenase (Santyl) 0 gm TOP DAILY [facility] Last Admin: 10/31/16 14:14 Dose: Not Given Guaifenesin (Mucinex La) 600 mg PO BID [facility] Last Admin: 11/01/16 11:12 Dose: 600 mg Guaifenesin (Robitussin) 200 mg PO Q4H PRN PRN Reason: Cough and congestion Potassium Chloride 40 meq/ (Dextrose/Sodium Chloride) 1,020 mls @ 75 mls/hr IV .[id number] [facility] Last Admin: 10/31/16 12:04 Dose: 75 mls/hr Ceftriaxone Sodium (Rocephin 1 Gram Ivpb) 1 gm in 100 mls @ 100 mls/hr IVPB DAILY [facility] PRN Reason: Protocol Stop: 11/09/16 10:01 Last Admin: 11/01/16 11:10 Dose: 100 mls/hr Multivitamins/Vitamin C 10 ml/Amino Acids/Electrolytes/Dextrose 2,010 mls @ 83 mls/hr IV .Q24H [facility] Last Admin: 11/01/16 18:05 Dose: 83 mls/hr Lidocaine HCl (Lidocaine 2% Viscous) 15 ml PO Q3H PRN PRN Reason: Pain, Mild (1-3) Last Admin: 11/01/16 09:03 Dose: 15 ml Megestrol Acetate (Megace) 400 mg PO DAILY [facility] Last Admin: 11/01/16 11:14 Dose: 400 mg Methylprednisolone (Solu-Medrol) 20 mg IV Q12 [facility] Last Admin: 11/01/16 11:40 Dose: 20 mg Morphine Sulfate (Morphine) 2 mg IVP Q4H PRN PRN Reason: GI distress Last Admin: 11/01/16 16:36 Dose: 2 mg Nystatin (Nystatin Oral Susp) 5 ml PO QID [facility] Last Admin: 11/01/16 17:34 Dose: 5 ml Phenol/Menthol (Phenaseptic 1.4% Throat [place]) 0 ml MT Q2H PRN PRN Reason: Pain, Mild (1-3) Last Admin: 10/31/16 12:06 Dose: 3 spray Potassium Phos/Sodium Phos (Neutra-Phos) 1 pkt PO BID [facility] Stop: 11/05/16 10:01 Last Admin: 11/01/16 17:34 Dose: 1 pkt - Labs Labs: 10/27/16 06:30 10/28/16 07:00 - Constitutional Appears: Cachectic, Chronically Ill - Head Exam Head Exam: ATRAUMATIC, NORMAL INSPECTION, NORMOCEPHALIC - Eye Exam Eye Exam: Normal appearance Pupil Exam: NORMAL ACCOMODATION - ENT Exam ENT Exam: Mucous Membranes Dry - Neck Exam Neck Exam: Normal Inspection - Respiratory Exam Respiratory Exam: Clear to Ausculation Bilateral, NORMAL BREATHING PATTERN - GI/Abdominal Exam GI & Abdominal Exam: Soft, Normal Bowel Sounds - Extremities Exam Extremities Exam: Normal Inspection - Back Exam Back Exam: NORMAL INSPECTION - Neurological Exam Neurological Exam: Alert, Awake, Oriented x3 - Skin Skin Exam: Normal Color, Warm Assessment and Plan - Assessment and Plan (Free Text) Assessment: 1. Cachexia 2. iron deficiency anemia 3. pelvic fracture 4. UTI 5. Failure to thrive Plan : IV antibiotics as per ID. iron deficiency anemia. s/p one dose of IV iron 200 mg. Hb/hct stable. Discussion going on with family regarding feeding. Work up for oral ulcers. Decub back- surgery following. TPN planned. US abdomen- no mass lesions.
[2016-11-02] MEDS: Albuterol-Ipratrop 3 mg / 0.5 (3 ml) UD IH SCH ×4 (01:00→19:48)
--- NOTE | 2016-11-02 01:29 | PN ---
DATE: SUBJECTIVE: This patient was seen and evaluated earlier. The patient is discussed with the patient's son who was at bedside. The patient is tolerating the pureed diet, but eating very small amounts. PHYSICAL EXAMINATION: VITAL SIGNS: Temperature 98, blood pressure 148/120, respirations is 20, O2 saturation on room air 96%, pulse rate is 92. HEENT: Atraumatic. Anicteric. Oral cavity exam has minimal ulcerations present, improving. The patient is edentulous. NECK: Supple. HEART: S1 and S2 heard. LUNGS: Bilateral air entry present. ABDOMEN: Soft. No tenderness. Bowel sounds normal. EXTREMITIES: No cyanosis. No clubbing. LABORATORY DATA: Hemoglobin 9.4, hematocrit 30.4, platelet count is 355, WBC 7.2. Her initial B12 was borderline 348, have been supplemented. The patient's iron is low. Transferrin saturation is also low. IMPRESSION: This is an 86-year-old patient, admitted with mucositis with oral ulceration, poor p.o. intake, malnutrition, also has multiple decubitus ulcers. The patient's anemia which is probably multifactorial etiology. The patient has normocytic anemia. The GI consult was requested initially for PEG tube placement. We have detailed discussion with the patient again and with the patient's family. The patient herself was more alert now and she does not want feeding tube. The son who was at bedside fully understood and she wanted to continue her wishes, unless she changes her mind, they do not want to proceed with that. The patient would benefit. RECOMMENDATIONS: Would recommend, 1. The patient has sepsis as well as UTI and decubitus ulcers, I will continue the antibiotics. 2. Mucositis with oral ulcerations, improving. 3. Malnutrition, poor p.o. intake. The patient is edentulous. With reasonable thing is to continue the pureed diet with nutritional supplement. The patient's family discussed again with the PPN. I will discuss with Dr. Paz regarding this. At the present time, we will hold off feeding tube placement as the family and the patient does not want to consider this. If there is any change in their decision, we will reconsider the feeding tube placement. Would also request for reticulocyte count. Thank you very much for allowing me to participate in the care of the patient. Camilo Servin MD [facility] # [id number]
[2016-11-02 07:12] LABS: HEMATOCRIT 24.3 % (36.0-48.0); MEAN CORPUSCULAR HEMOGLOBIN 25.7 pg (25.0-35.0); MEAN CORPUSCULAR HGB CONC 29.2 g/dl (31.0-37.0); MEAN PLATELET VOLUME 9.6 fl (7.0-11.0); RED CELL DISTRIBUTION WIDTH 18.4 % (11.5-14.5); WHITE BLOOD COUNT 7.1 10^3/ul (4.5-11.0)
[2016-11-02] MEDS: Budesonide 0.5 mg/2 ml Inhal Susp UD IH SCH ×2 (07:24→19:48)
[2016-11-02 07:51] LABS: ALB/GLOB RATIO 1.2 (1.1-1.8); ALKALINE PHOSPHATASE 81 U/L (38-126); ALT/SGPT 31 U/L (7-56); AST/SGOT 25 U/L (14-36); BILIRUBIN,TOTAL 0.3 mg/dL (0.2-1.3); BLOOD UREA NITROGEN 16 mg/dL (7-21); CALCIUM 8.4 mg/dL (8.4-10.5); CARBON DIOXIDE 28 mmol/L (21-33); CHLORIDE 107 mmol/L (98-107); GFR AFRICAN-AMERICAN > 60; GLUCOSE,RANDOM 128 mg/dL (70-110); MAGNESIUM 1.7 mg/dL (1.7-2.2); PHOSPHOROUS 2.9 mg/dL (2.5-4.5); SODIUM 140 mmol/L (132-148); TOTAL PROTEIN 4.2 g/dL (5.8-8.3)
--- NOTE | 2016-11-02 08:11 | PN ---
DATE: 11/02/2016 SUBJECTIVE: The patient appears comfortable at rest. She is not short of breath. PHYSICAL EXAMINATION VITAL SIGNS: Temperature is 98.5, pulse 88, respirations 18/20, blood pressure 112/60. oxygen saturation on room air is 97%. HEENT: Normocephalic, atraumatic. NECK: No JVD. CARDIOVASCULAR: Positive systolic ejection murmur at the lower left sternal border. No S3 gallop. LUNGS: Decreased breath sounds at the bases. Very minimal rhonchi. No wheezing. EXTREMITIES: No clubbing, cyanosis, or edema. Calves are nontender. No palpation. GI: Abdomen is soft, nontender, nondistended. Bowel sounds are positive. SKIN: No acute rash. NEUROLOGIC: Limited at the present time. IMPRESSION: 1. Chronic obstructive pulmonary disease. 2. Urosepsis. 3. Malnutrition. 4. Anemia. 5. Gallstones. PLAN: The patient appears comfortable this morning. She is not short of breath at rest. She does appear very cachectic and weak. On physical exam, there is only minimal bronchospasm appreciated. In addition, the oxygen saturation on room air is 97%. I will continue with the current nebulizer treatments and change to oral steroids this morning. I would continue with the antibiotic coverage as per Infectious Disease. Input by Dr. Fish is noted. Repeat a.m. labs are pending. Clinical status of the patient is improved. However, the patient remains frail and cachectic, with overall very guarded prognosis. I will discuss the above with the attending physician. Olman Kenney MD TO
[2016-11-02 09:29] LABS: HEMATOCRIT 26.1 % (36.0-48.0)
[2016-11-02] MEDS: guaiFENesin 600 mg ER Tab PO SCH ×2 (10:54→17:25)
[2016-11-02] MEDS: Prostat 15 g packet PO SCH ×2 (10:55→18:48)
[2016-11-02] MEDS: Nystatin 100,000 Units/ml Oral Susp 5 ml UD PO SCH ×4 (11:09→22:40)
[2016-11-02] MEDS: Potassium & Sodium Phosphate PO SCH ×2 (11:09→18:54)
[2016-11-02] MEDS: Megestrol Acetate 40 mg/ml Cup PO SCH (11:09)
[2016-11-02] MEDS: cefTRIAXone 1 gm 1 GM/100 ML BAG IVPB SCH (11:10)
[2016-11-02] MEDS: Collagenase 250 Units/gm Ointment(30 gm) TOP SCH (11:12)
[2016-11-02] MEDS: Morphine 2 mg/ml ISec IVP PRN ×2 (12:35→17:38)
--- NOTE | 2016-11-02 15:01 | CP.PCM.PN ---
Subjective - Date & Time of Evaluation Date of Evaluation: 11/02/16 Time of Evaluation: 11:10 - Subjective Subjective: Comfortable in bed, afebrile, not in distress. Objective - Vital Signs/Intake and Output Vital Signs (last 24 hours): Temp Pulse Resp BP Pulse Ox 98 F 78 18 116/59 L 96 11/02/16 14:05 11/02/16 14:05 11/02/16 14:05 11/02/16 14:05 11/02/16 08:00 Intake and Output: 11/02/16 11/02/16 06:59 18:59 Intake Total 2189 260 Output Total 800 1600 Balance 1389 -1340 - Medications Medications: Current Medications Albuterol/Ipratropium (Duoneb 3 Mg/0.5 Mg (3 Ml) Ud) 3 ml IH [id number] [facility] Last Admin: 11/02/16 13:13 Dose: 3 ml Benzocaine/Menthol (Cepacol Sore Throat) 1 monica MT Q2H PRN PRN Reason: Sore Throat Budesonide (Pulmicort Respules) 0.5 mg IH BIDRESP [facility] Last Admin: 11/02/16 07:24 Dose: 0.5 mg Collagenase (Santyl) 0 gm TOP DAILY [facility] Last Admin: 11/02/16 11:12 Dose: 1 appful Guaifenesin (Mucinex La) 600 mg PO BID [facility] Last Admin: 11/02/16 10:54 Dose: Not Given Guaifenesin (Robitussin) 200 mg PO Q4H PRN PRN Reason: Cough and congestion Ceftriaxone Sodium (Rocephin 1 Gram Ivpb) 1 gm in 100 mls @ 100 mls/hr IVPB DAILY [facility] PRN Reason: Protocol Stop: 11/09/16 10:01 Last Admin: 11/02/16 11:10 Dose: 100 mls/hr Multivitamins/Vitamin C 10 ml/Amino Acids/Electrolytes/Dextrose 2,010 mls @ 83 mls/hr IV .Q24H [facility] Last Admin: 11/01/16 18:05 Dose: 83 mls/hr Lidocaine HCl (Lidocaine 2% Viscous) 15 ml PO Q3H PRN PRN Reason: Pain, Mild (1-3) Last Admin: 11/01/16 09:03 Dose: 15 ml Megestrol Acetate (Megace) 400 mg PO DAILY [facility] Last Admin: 11/02/16 11:09 Dose: 400 mg Morphine Sulfate (Morphine) 2 mg IVP Q4H PRN PRN Reason: GI distress Last Admin: 11/02/16 12:35 Dose: 2 mg Nystatin (Nystatin Oral Susp) 5 ml PO QID [facility] Last Admin: 11/02/16 11:09 Dose: 5 ml Phenol/Menthol (Phenaseptic 1.4% Throat [place]) 0 ml MT Q2H PRN PRN Reason: Pain, Mild (1-3) Last Admin: 10/31/16 12:06 Dose: 3 spray Potassium Phos/Sodium Phos (Neutra-Phos) 1 pkt PO BID [facility] Stop: 11/05/16 10:01 Last Admin: 11/02/16 11:09 Dose: 1 pkt Prednisone (Prednisone Tab) 20 mg PO DAILY [facility] Last Admin: 11/02/16 11:09 Dose: 20 mg - Labs Labs: 11/02/16 08:55 11/02/16 06:55 - Constitutional Appears: Non-toxic, No Acute Distress - Head Exam Head Exam: NORMAL INSPECTION - Neck Exam Neck Exam: absent: Meningismus - Respiratory Exam Respiratory Exam: Decreased Breath Sounds - Cardiovascular Exam Cardiovascular Exam: +S1, +S2 - GI/Abdominal Exam GI & Abdominal Exam: Soft. absent: Tenderness Assessment and Plan - Assessment and Plan (Free Text) Plan: Assessment sepsis due to urinary tract infection with Klebsiella unstageable sacral ulcer dementia history of pelvic fracture gallstones history of urinary incontinence osteoporosis chronic anemia Plan continue Rocephin to complete 7-10 days; continue local wound care for sacral ulcer - also, this ulcer will only heal if patient undergoes colostomy ( perpetual soiling with feces) will monitor clinically
--- NOTE | 2016-11-02 20:33 | CP.PCM.PN ---
Subjective - Date & Time of Evaluation Date of Evaluation: 11/02/16 Time of Evaluation: 08:00 - Subjective Subjective: General Surgery Progress note for Dr. Park PAtient seen and examined at bedside. Patient denies F/C. N/V. admits to tolerating hip pain better. Air Mattress Santyl on sacrum silvadine on left leg wounds Objective - Vital Signs/Intake and Output Vital Signs (last 24 hours): Temp Pulse Resp BP Pulse Ox 98.3 F 90 18 121/54 L 100 11/02/16 19:18 11/02/16 19:18 11/02/16 19:18 11/02/16 19:18 11/02/16 15:57 Intake and Output: 11/02/16 11/03/16 18:59 06:59 Intake Total 635 Output Total 1600 Balance -965 - Medications Medications: Current Medications Albuterol/Ipratropium (Duoneb 3 Mg/0.5 Mg (3 Ml) Ud) 3 ml IH [id number] [facility] Last Admin: 11/02/16 19:48 Dose: 3 ml Benzocaine/Menthol (Cepacol Sore Throat) 1 monica MT Q2H PRN PRN Reason: Sore Throat Budesonide (Pulmicort Respules) 0.5 mg IH BIDRESP [facility] Last Admin: 11/02/16 19:48 Dose: 0.5 mg Collagenase (Santyl) 0 gm TOP DAILY [facility] Last Admin: 11/02/16 11:12 Dose: 1 appful Guaifenesin (Mucinex La) 600 mg PO BID [facility] Last Admin: 11/02/16 17:25 Dose: Not Given Guaifenesin (Robitussin) 200 mg PO Q4H PRN PRN Reason: Cough and congestion Ceftriaxone Sodium (Rocephin 1 Gram Ivpb) 1 gm in 100 mls @ 100 mls/hr IVPB DAILY [facility] PRN Reason: Protocol Stop: 11/09/16 10:01 Last Admin: 11/02/16 11:10 Dose: 100 mls/hr Multivitamins/Vitamin C 10 ml/Amino Acids/Electrolytes/Dextrose 2,010 mls @ 83 mls/hr IV .Q24H [facility] Last Admin: 11/01/16 18:05 Dose: 83 mls/hr Lidocaine HCl (Lidocaine 2% Viscous) 15 ml PO Q3H PRN PRN Reason: Pain, Mild (1-3) Last Admin: 11/01/16 09:03 Dose: 15 ml Megestrol Acetate (Megace) 400 mg PO DAILY [facility] Last Admin: 11/02/16 11:09 Dose: 400 mg Morphine Sulfate (Morphine) 2 mg IVP Q4H PRN PRN Reason: GI distress Last Admin: 11/02/16 17:38 Dose: 2 mg Nystatin (Nystatin Oral Susp) 5 ml PO QID [facility] Last Admin: 11/02/16 18:52 Dose: 5 ml Phenol/Menthol (Phenaseptic 1.4% Throat [place]) 0 ml MT Q2H PRN PRN Reason: Pain, Mild (1-3) Last Admin: 10/31/16 12:06 Dose: 3 spray Potassium Phos/Sodium Phos (Neutra-Phos) 1 pkt PO BID [facility] Stop: 11/05/16 10:01 Last Admin: 11/02/16 18:54 Dose: 1 pkt Prednisone (Prednisone Tab) 20 mg PO DAILY [facility] Last Admin: 11/02/16 11:09 Dose: 20 mg - Labs Labs: 11/02/16 08:55 11/02/16 06:55 - Constitutional Appears: Non-toxic, No Acute Distress - Head Exam Head Exam: NORMAL INSPECTION - Eye Exam Eye Exam: EOMI, Normal appearance - ENT Exam ENT Exam: Mucous Membranes Moist - Neck Exam Neck Exam: Full ROM - Cardiovascular Exam Cardiovascular Exam: REGULAR RHYTHM. absent: Bradycardia, Tachycardia - Extremities Exam Extremities Exam: Full ROM, Normal Inspection, Pedal Edema - Psychiatric Exam Psychiatric exam: Anxious, Normal Affect, Normal Mood - Skin Skin Exam: Dry, Normal Color, Warm Additional comments: sacral ulcer improving left ankle ulcer and calf ulcer improving Assessment and Plan - Assessment and Plan (Free Text) Assessment: 86F presents with sacral and left calf and ankle ulcer Plan: c/w current wound care management c/w current medical management Air Mattress Santyl on sacrum silvadine on left leg wound Naye Saini DO PGY1
--- NOTE | 2016-11-02 21:03 | CON ---
HISTORY OF PRESENT ILLNESS: The patient is an 86-year-old female with no known previous psychiatric history. The patient had multiple medical issues including sepsis as well as urinary tract infection and decubitus ulcers. The patient was admitted for mucositis with oral ulceration. The patient also had poor p.o. intake, malnutrition, also multiple decubitus ulcers. Psych consult was called for evaluation of capacity to make decision about PEG tube placement. The patient was seen and examined. Discussed with the nursing staff as well as primary care physician, Dr. Gutierrez. All notes from the medical staff as well as GI team reviewed. The patient presented to be alert, oriented to self as well as place, but not to time. The patient was oriented to year, but not to month or date. The patient said that she does not remember what was the circumstances of her admission to the medical site. The patient said that at the present moment, she does not experience any pain or any anxiety or depression. When this group underwriter asked about PEG tube placement, the patient seems to be not aware about that procedure. But based on the history from Dr. Servin, GI team, the patient as well as her family were educated about risks, benefits and alternatives but it seems the patient was not able to withhold that information. After detailed explanation of the procedure, the patient was not giving consent for it. The patient said, "I want to leave this planet of earth with the body that I was born with." The patient denied that she is looking for being and denied that she wants to end her life. The patient said that her decision is adamant and she does not want to have any artificial feeding or any surgery done in regards of artificial tube. As per Dr. Servin's note, the patient's family decided to respect her decision and does not want to have that procedure done either. This group underwriter had prolonged conversation with Dr. Gutierrez. As per Dr. Gutierrez, prognosis is very poor right now and the patient is poor to guarded and as per history, the patient never verbalized any thoughts of killing herself or others and never verbalized that she is depressed. Based on the nursing staff report, the patient is participating in treatment, is able to communicate her needs, does not have agitation or aggression and does not appear to be delirious. Summary reviewed. The patient does not have any POA and the patient was making decision for herself up until now. MENTAL STATUS EXAMINATION: The patient appears to be alert, very thin built, cachectic female, intermittent eye contact. Speech was minimal and underproductive. She has no answers. At times, the patient was making appropriate jokes. For example, when this group underwriter asked how is the patient's sleep, the patient said, "with my eyes closed," and smiled. Mood described as "I'm not depressed and I'm not anxious." Affect was reactive. Mood was congruent. Thought process was coherent, goal directed. Thought content, the patient denied visual, auditory, tactile hallucinations. Denied paranoid ideations. The patient denied thoughts of harming herself or others, denied intent or plan. Insight and judgment seems to be fair. Impulses are well controlled. IMPRESSION: Even though the patient seems to be lacking capacity to make decision about the procedure because the patient does not have basic understanding of the procedure despite the fact that Gastroenterology team explained the procedure to the patient and the family. The patient and family were in agreement not to have that procedure done. At the present moment, this group underwriter will respect that decision, but at the same time, this group underwriter cannot exclude that the patient might change her mind and would have that procedure done in the future. Based on the history from the nursing staff as well as GI team, the patient had episodes of forgetfulness and confusion, most likely the patient was in delirium stage. PLAN: The patient seems to lacking capacity to make decision about PEG tube placement. At the same time, the patient was clear that she does not want to have that procedure done as well as the patient's family was in agreement with that. I would recommend supportive therapy as well as current management needs to be continued. This group underwriter educated the patient about procedure. The patient verbalized understanding. Discussed with the primary care physician, Dr. Gutierrez. As per Dr. Gutierrez, prognosis is poor at the present moment. The patient is DNR and DNI. This group underwriter will follow-up on this patient tomorrow. This group underwriter discussed the case with primary care physician. Thank you very much for letting me participate in the care of your patient. Carmita Altman MD [facility] # [id number]
--- NOTE | 2016-11-02 22:35 | CP.PCM.PN ---
Subjective - Date & Time of Evaluation Date of Evaluation: 11/02/16 Time of Evaluation: 18:30 - Subjective Subjective: on pured diet tolerating intake remains still low on ensure nutritional supplement. Started her on PPN Objective - Vital Signs/Intake and Output Vital Signs (last 24 hours): Temp Pulse Resp BP Pulse Ox 98.8 F 101 H 20 117/63 100 11/02/16 21:30 11/02/16 21:30 11/02/16 21:30 11/02/16 21:30 11/02/16 15:57 Intake and Output: 11/02/16 11/03/16 18:59 06:59 Intake Total 635 290 Output Total 1600 600 Balance -965 -310 - Medications Medications: Current Medications Albuterol/Ipratropium (Duoneb 3 Mg/0.5 Mg (3 Ml) Ud) 3 ml IH [id number] [facility] Last Admin: 11/02/16 19:48 Dose: 3 ml Benzocaine/Menthol (Cepacol Sore Throat) 1 monica MT Q2H PRN PRN Reason: Sore Throat Budesonide (Pulmicort Respules) 0.5 mg IH BIDRESP [facility] Last Admin: 11/02/16 19:48 Dose: 0.5 mg Collagenase (Santyl) 0 gm TOP DAILY [facility] Last Admin: 11/02/16 11:12 Dose: 1 appful Guaifenesin (Mucinex La) 600 mg PO BID [facility] Last Admin: 11/02/16 17:25 Dose: Not Given Guaifenesin (Robitussin) 200 mg PO Q4H PRN PRN Reason: Cough and congestion Ceftriaxone Sodium (Rocephin 1 Gram Ivpb) 1 gm in 100 mls @ 100 mls/hr IVPB DAILY [facility] PRN Reason: Protocol Stop: 11/09/16 10:01 Last Admin: 11/02/16 11:10 Dose: 100 mls/hr Multivitamins/Vitamin C 10 ml/Amino Acids/Electrolytes/Dextrose 2,010 mls @ 83 mls/hr IV .Q24H [facility] Last Admin: 11/01/16 18:05 Dose: 83 mls/hr Lidocaine HCl (Lidocaine 2% Viscous) 15 ml PO Q3H PRN PRN Reason: Pain, Mild (1-3) Last Admin: 11/01/16 09:03 Dose: 15 ml Megestrol Acetate (Megace) 400 mg PO DAILY [facility] Last Admin: 11/02/16 11:09 Dose: 400 mg Morphine Sulfate (Morphine) 2 mg IVP Q4H PRN PRN Reason: GI distress Last Admin: 11/02/16 17:38 Dose: 2 mg Nystatin (Nystatin Oral Susp) 5 ml PO QID [facility] Last Admin: 11/02/16 18:52 Dose: 5 ml Phenol/Menthol (Phenaseptic 1.4% Throat [place]) 0 ml MT Q2H PRN PRN Reason: Pain, Mild (1-3) Last Admin: 10/31/16 12:06 Dose: 3 spray Potassium Phos/Sodium Phos (Neutra-Phos) 1 pkt PO BID [facility] Stop: 11/05/16 10:01 Last Admin: 11/02/16 18:54 Dose: 1 pkt Prednisone (Prednisone Tab) 20 mg PO DAILY [facility] Last Admin: 11/02/16 11:09 Dose: 20 mg - Labs Labs: 11/02/16 08:55 11/02/16 06:55 - Constitutional Appears: No Acute Distress - Head Exam Head Exam: ATRAUMATIC, NORMOCEPHALIC - Eye Exam Eye Exam: EOMI, PERRL - ENT Exam ENT Exam: Mucous Membranes Moist Additional comments: mouth ulcers healing - Neck Exam Neck Exam: absent: Lymphadenopathy - Respiratory Exam Respiratory Exam: NORMAL BREATHING PATTERN. absent: Rales, Rhonchi - Cardiovascular Exam Cardiovascular Exam: +S1, +S2. absent: JVD - GI/Abdominal Exam GI & Abdominal Exam: Soft, Mass. absent: Tenderness - Neurological Exam Neurological Exam: Alert, Awake, Oriented x3 Assessment and Plan - Assessment and Plan (Free Text) Assessment: this 86-year-old patient admitted the [facility] nutrition sepsis,UTI oral ulcerations poor by mouth intake. Presently improving. Still refusing feeding tube placement. On PPN Overall caloric intake remains poor. She would benefit from feeding tube placement the patient improves still she need to continue on a long-term pured diet Continue antibiotics as per ID
--- NOTE | 2016-11-03 00:49 | PN ---
DATE: 11/02/2016 SUBJECTIVE: She is comfortable in bed, in no acute distress, cachectic. Not able to swallow. She is asking for food to eat. Hemoglobin declined to 7 gm/dL today. Two units of blood transfusion ordered. She is refusing the feeding tube. Evaluated by psychiatry. REVIEW OF SYSTEMS: As per HPI. Rest of the 12-point review of systems reviewed and negative. PHYSICAL EXAMINATION GENERAL: Comfortable in bed, no acute distress. VITAL SIGNS: Stable. Temperature 98.8, heart rate is 100 per minute, blood pressure 110/70, respiratory rate 20 per minutes. HEENT: Normal. Cachexia. CHEST: Air entry present and equal bilateral. No added sound. CARDIOVASCULAR: S1 and S2 normal. No murmur and no gallop. ABDOMEN: Soft and nontender. No hepatosplenomegaly. EXTREMITIES: No edema. SHEET METAL ROOFER: Conversant. Moving all the limbs. Spine, nontender. LABORATORY DATA: White count is 7.1, hemoglobin 7.1, hematocrit 24.3, platelet count 243. Sodium 140, potassium 4, creatinine 0.3. Total protein 4.2. MEDICATIONS: Tylenol 650 mg q. 6 hours p.r.n., Xanax 0.25 mg stat, Pulmicort, ceftriaxone 1 gm daily, Mucinex, Megace 400 mg daily, morphine 2 mg IV q. 4 hours p.r.n., nystatin oral suspension, potassium, prednisone 20 mg daily. ASSESSMENT: 1. Cachexia. 2. Failure to thrive. 3. Oral ulcers. 4. Severe anemia. 5. Dysphagia. PLAN: She is getting parenteral nutrition now. That will be tried for the next few days, how she does. Unable to swallow, refusing PEG tube. Psychiatry evaluated. She does not have capacity to make any decisions as per psychiatry note and possible transfer to transitional care unit. There are issues with their insurance, which will be notified to the patient's doctor by the caseworker intake. She will have [id number] expenses on the transitional care unit site, which the daughter has to approve. We will continue IV antibiotics for E. coli UTI, which is polymicrobial, ID following. Arlene Angelo MD
[2016-11-03] MEDS: Albuterol-Ipratrop 3 mg / 0.5 (3 ml) UD IH SCH ×4 (01:19→20:14)
--- NOTE | 2016-11-03 02:04 | CP.PCM.PN ---
Subjective - Date & Time of Evaluation Date of Evaluation: 11/03/16 Time of Evaluation: 01:27 - Subjective Subjective: draft patient anxious. Rx, xanax 0.25 mg po x 1. Objective - Vital Signs/Intake and Output Vital Signs (last 24 hours): Temp Pulse Resp BP Pulse Ox 98.8 F 101 H 20 117/63 100 11/02/16 21:30 11/02/16 21:30 11/02/16 21:30 11/02/16 21:30 11/02/16 15:57 Intake and Output: 11/02/16 11/03/16 18:59 06:59 Intake Total 635 290 Output Total 1600 600 Balance -965 -310 - Medications Medications: Current Medications Albuterol/Ipratropium (Duoneb 3 Mg/0.5 Mg (3 Ml) Ud) 3 ml IH [id number] [facility] Last Admin: 11/03/16 01:19 Dose: 3 ml Benzocaine/Menthol (Cepacol Sore Throat) 1 monica MT Q2H PRN PRN Reason: Sore Throat Budesonide (Pulmicort Respules) 0.5 mg IH BIDRESP [facility] Last Admin: 11/02/16 19:48 Dose: 0.5 mg Collagenase (Santyl) 0 gm TOP DAILY [facility] Last Admin: 11/02/16 11:12 Dose: 1 appful Guaifenesin (Mucinex La) 600 mg PO BID [facility] Last Admin: 11/02/16 17:25 Dose: Not Given Guaifenesin (Robitussin) 200 mg PO Q4H PRN PRN Reason: Cough and congestion Ceftriaxone Sodium (Rocephin 1 Gram Ivpb) 1 gm in 100 mls @ 100 mls/hr IVPB DAILY [facility] PRN Reason: Protocol Stop: 11/09/16 10:01 Last Admin: 11/02/16 11:10 Dose: 100 mls/hr Multivitamins/Vitamin C 10 ml/Amino Acids/Electrolytes/Dextrose 2,010 mls @ 83 mls/hr IV .Q24H [facility] Last Admin: 11/02/16 22:40 Dose: 83 mls/hr Lidocaine HCl (Lidocaine 2% Viscous) 15 ml PO Q3H PRN PRN Reason: Pain, Mild (1-3) Last Admin: 11/01/16 09:03 Dose: 15 ml Megestrol Acetate (Megace) 400 mg PO DAILY [facility] Last Admin: 11/02/16 11:09 Dose: 400 mg Morphine Sulfate (Morphine) 2 mg IVP Q4H PRN PRN Reason: GI distress Last Admin: 11/02/16 17:38 Dose: 2 mg Nystatin (Nystatin Oral Susp) 5 ml PO QID [facility] Last Admin: 11/02/16 22:40 Dose: 5 ml Phenol/Menthol (Phenaseptic 1.4% Throat [place]) 0 ml MT Q2H PRN PRN Reason: Pain, Mild (1-3) Last Admin: 10/31/16 12:06 Dose: 3 spray Potassium Phos/Sodium Phos (Neutra-Phos) 1 pkt PO BID [facility] Stop: 11/05/16 10:01 Last Admin: 11/02/16 18:54 Dose: 1 pkt Prednisone (Prednisone Tab) 20 mg PO DAILY [facility] Last Admin: 11/02/16 11:09 Dose: 20 mg - Labs Labs: 11/02/16 08:55 11/02/16 06:55
[2016-11-03] MEDS: Budesonide 0.5 mg/2 ml Inhal Susp UD IH SCH ×2 (06:59→20:14)
[2016-11-03 07:14] LABS: HEMATOCRIT 34.8 % (36.0-48.0); MEAN CELL VOLUME 83.7 fl (80.0-105.0); MEAN CORPUSCULAR HEMOGLOBIN 26.2 pg (25.0-35.0); MEAN CORPUSCULAR HGB CONC 31.3 g/dl (31.0-37.0); MEAN PLATELET VOLUME 9.2 fl (7.0-11.0); RED CELL DISTRIBUTION WIDTH 17.3 % (11.5-14.5); WHITE BLOOD COUNT 6.4 10^3/ul (4.5-11.0)
[2016-11-03 07:29] LABS: ALB/GLOB RATIO 1.3 (1.1-1.8); ALKALINE PHOSPHATASE 84 U/L (38-126); ALT/SGPT 34 U/L (7-56); AST/SGOT 27 U/L (14-36); BILIRUBIN,TOTAL 0.8 mg/dL (0.2-1.3); BLOOD UREA NITROGEN 16 mg/dL (7-21); CALCIUM 8.2 mg/dL (8.4-10.5); CARBON DIOXIDE 29 mmol/L (21-33); CHLORIDE 98 mmol/L (98-107); GFR AFRICAN-AMERICAN > 60; GLUCOSE,RANDOM 85 mg/dL (70-110); POTASSIUM 3.9 mmol/L (3.6-5.0); SODIUM 133 mmol/L (132-148); TOTAL PROTEIN 4.5 g/dL (5.8-8.3)
--- NOTE | 2016-11-03 08:14 | PN ---
DATE: 11/03/2016 SUBJECTIVE: The patient appears comfortable this morning. She is not short of breath at rest. PHYSICAL EXAMINATION VITAL SIGNS: Temperature is 98.3, pulse 88, respirations 18/20, blood pressure 118/64. Oxygen saturation on nasal cannula is 97%. HEENT: Normocephalic and atraumatic. NECK: No JVD. CARDIOVASCULAR: Systolic ejection murmur at the lower left sternal border. No S3 gallop. LUNGS: Decreased breath sounds at the bases. Very minimal/less rhonchi. No wheezing. GI: Abdomen is soft, nontender, nondistended. Bowel sounds are positive. EXTREMITIES: No clubbing, cyanosis, or edema. Calves are nontender to palpation. SKIN: No acute rash. NEUROLOGIC: Limited at the present time. IMPRESSION: 1. Chronic obstructive pulmonary disease. 2. Urosepsis. 3. Malnutrition. 4. Anemia. 5. Gallstones. PLAN: The patient appears comfortable this morning. She is not short of breath at rest. She does state that she is feeling better. She does, however, remain cachectic and weak looking. On physical exam, there is only minimal bronchospasm noted. In addition, the oxygen saturation on nasal cannula is now 97 to 100%. I will continue with the current nebulizer treatments and low-dose oral steroids (changed yesterday) for now. The patient also remains on antibiotic therapy-as per infectious disease. There are no temperatures noted. There is no leukocytosis. Clinical status of the patient is significantly improved. However, again, the future status/prognosis for this very elderly patient does remain guarded. All are aware. I will discuss the above with the attending physician. Olman Kenney MD TO
[2016-11-03] MEDS: cefTRIAXone 1 gm 1 GM/100 ML BAG IVPB SCH ×2 (09:19→12:18)
[2016-11-03] MEDS: Megestrol Acetate 40 mg/ml Cup PO SCH ×2 (09:19→09:27)
[2016-11-03] MEDS: Potassium & Sodium Phosphate PO SCH ×2 (09:19→19:02)
[2016-11-03] MEDS: Nystatin 100,000 Units/ml Oral Susp 5 ml UD PO SCH ×3 (09:19→19:03)
[2016-11-03] MEDS: Collagenase 250 Units/gm Ointment(30 gm) TOP SCH (09:19)
[2016-11-03] MEDS: guaiFENesin 600 mg ER Tab PO SCH ×2 (09:27→19:02)
[2016-11-03] MEDS: Prostat 15 g packet PO SCH ×2 (09:27→19:03)
[2016-11-03] MEDS: Morphine 2 mg/ml ISec IVP PRN ×2 (09:29→20:55)
--- NOTE | 2016-11-03 16:39 | CP.PCM.PCO ---
Physician Communication Note - Physician Communication Note Physician Communication Note: due to high volume of pt, will f/u on pt tomorrow
--- NOTE | 2016-11-03 18:29 | CP.PCM.PN ---
Subjective - Date & Time of Evaluation Date of Evaluation: 11/03/16 Time of Evaluation: 12:05 - Subjective Subjective: Comfortable in bed, not in distress, afebrile. Objective - Vital Signs/Intake and Output Vital Signs (last 24 hours): Temp Pulse Resp BP Pulse Ox 98.6 F 99 H 20 120/72 96 11/03/16 07:00 11/03/16 07:00 11/03/16 07:00 11/03/16 07:00 11/03/16 07:00 Intake and Output: 11/03/16 11/03/16 06:59 18:59 Intake Total 410 Output Total 1100 Balance -690 - Medications Medications: Current Medications Albuterol/Ipratropium (Duoneb 3 Mg/0.5 Mg (3 Ml) Ud) 3 ml IH [id number] [facility] Last Admin: 11/03/16 06:59 Dose: 3 ml Benzocaine/Menthol (Cepacol Sore Throat) 1 monica MT Q2H PRN PRN Reason: Sore Throat Budesonide (Pulmicort Respules) 0.5 mg IH BIDRESP [facility] Last Admin: 11/03/16 06:59 Dose: 0.5 mg Collagenase (Santyl) 0 gm TOP DAILY [facility] Last Admin: 11/02/16 11:12 Dose: 1 appful Guaifenesin (Mucinex La) 600 mg PO BID [facility] Last Admin: 11/03/16 09:27 Dose: Not Given Guaifenesin (Robitussin) 200 mg PO Q4H PRN PRN Reason: Cough and congestion Ceftriaxone Sodium (Rocephin 1 Gram Ivpb) 1 gm in 100 mls @ 100 mls/hr IVPB DAILY [facility] PRN Reason: Protocol Stop: 11/09/16 10:01 Last Admin: 11/03/16 09:19 Dose: 100 mls/hr Multivitamins/Vitamin C 10 ml/Amino Acids/Electrolytes/Dextrose 2,010 mls @ 83 mls/hr IV .Q24H [facility] Last Admin: 11/02/16 22:40 Dose: 83 mls/hr Lidocaine HCl (Lidocaine 2% Viscous) 15 ml PO Q3H PRN PRN Reason: Pain, Mild (1-3) Last Admin: 11/01/16 09:03 Dose: 15 ml Megestrol Acetate (Megace) 400 mg PO DAILY [facility] Last Admin: 11/03/16 09:27 Dose: Not Given Morphine Sulfate (Morphine) 2 mg IVP Q4H PRN PRN Reason: GI distress Last Admin: 11/03/16 09:29 Dose: 2 mg Nystatin (Nystatin Oral Susp) 5 ml PO QID [facility] Last Admin: 11/03/16 09:19 Dose: 5 ml Phenol/Menthol (Phenaseptic 1.4% Throat [place]) 0 ml MT Q2H PRN PRN Reason: Pain, Mild (1-3) Last Admin: 10/31/16 12:06 Dose: 3 spray Potassium Phos/Sodium Phos (Neutra-Phos) 1 pkt PO BID [facility] Stop: 11/05/16 10:01 Last Admin: 11/03/16 09:19 Dose: 1 pkt Prednisone (Prednisone Tab) 20 mg PO DAILY [facility] Last Admin: 11/03/16 09:19 Dose: 20 mg - Labs Labs: 11/03/16 06:45 11/03/16 06:45 - Constitutional Appears: Non-toxic, No Acute Distress - Head Exam Head Exam: NORMAL INSPECTION - ENT Exam ENT Exam: Mucous Membranes Moist - Neck Exam Neck Exam: absent: Meningismus - Respiratory Exam Respiratory Exam: Decreased Breath Sounds - Cardiovascular Exam Cardiovascular Exam: +S1, +S2 - GI/Abdominal Exam GI & Abdominal Exam: Soft. absent: Tenderness Assessment and Plan - Assessment and Plan (Free Text) Plan: Assessment sepsis due to urinary tract infection with Klebsiella, clinically improving unstageable sacral ulcer dementia history of pelvic fracture gallstones history of urinary incontinence osteoporosis chronic anemia Plan continue Rocephin to complete 7-10 days (Day 6 today); continue local wound care for sacral ulcer - also, this ulcer will only heal if patient undergoes colostomy (perpetual soiling with feces), therefore antibiotic therapy to cover Pseudomonas and E. coli is not very helpful (since they will not be properly eradicated with continues soiling of the sacral ulcer with feces) will continue to monitor clinically
--- NOTE | 2016-11-03 22:25 | CP.PCM.PN ---
Subjective - Date & Time of Evaluation Date of Evaluation: 11/03/16 Time of Evaluation: 02:30 - Subjective Subjective: tolerating by mouth pured diet. Intake remains low. On PPN. Refusing PEG tube Objective - Vital Signs/Intake and Output Vital Signs (last 24 hours): Temp Pulse Resp BP Pulse Ox 98.5 F 83 21 140/69 96 11/03/16 16:00 11/03/16 16:00 11/03/16 16:00 11/03/16 16:00 11/03/16 16:00 Intake and Output: 11/03/16 11/04/16 18:59 06:59 Intake Total 240 360 Output Total 600 Balance -360 360 - Medications Medications: Current Medications Albuterol/Ipratropium (Duoneb 3 Mg/0.5 Mg (3 Ml) Ud) 3 ml IH [id number] [facility] Last Admin: 11/03/16 20:14 Dose: 3 ml Alprazolam (Xanax) 0.25 mg PO BID PRN; Protocol PRN Reason: Anxiety Stop: 11/10/16 18:01 Benzocaine/Menthol (Cepacol Sore Throat) 1 monica MT Q2H PRN PRN Reason: Sore Throat Budesonide (Pulmicort Respules) 0.5 mg IH BIDRESP [facility] Last Admin: 11/03/16 20:14 Dose: 0.5 mg Collagenase (Santyl) 0 gm TOP DAILY [facility] Last Admin: 11/03/16 09:19 Dose: 1 appful Guaifenesin (Mucinex La) 600 mg PO BID [facility] Last Admin: 11/03/16 19:02 Dose: Not Given Guaifenesin (Robitussin) 200 mg PO Q4H PRN PRN Reason: Cough and congestion Ceftriaxone Sodium (Rocephin 1 Gram Ivpb) 1 gm in 100 mls @ 100 mls/hr IVPB DAILY [facility] PRN Reason: Protocol Stop: 11/09/16 10:01 Last Admin: 11/03/16 12:18 Dose: Not Given Multivitamins/Vitamin C 10 ml/Amino Acids/Electrolytes/Dextrose 2,010 mls @ 83 mls/hr IV .Q24H [facility] Last Admin: 11/03/16 20:44 Dose: 83 mls/hr Lidocaine HCl (Lidocaine 2% Viscous) 15 ml PO Q3H PRN PRN Reason: Pain, Mild (1-3) Last Admin: 11/01/16 09:03 Dose: 15 ml Megestrol Acetate (Megace) 400 mg PO DAILY [facility] Last Admin: 11/03/16 09:27 Dose: Not Given Morphine Sulfate (Morphine) 2 mg IVP Q4H PRN PRN Reason: GI distress Last Admin: 11/03/16 20:55 Dose: 2 mg Nystatin (Nystatin Oral Susp) 5 ml PO QID [facility] Last Admin: 11/03/16 19:03 Dose: Not Given Phenol/Menthol (Phenaseptic 1.4% Throat [place]) 0 ml MT Q2H PRN PRN Reason: Pain, Mild (1-3) Last Admin: 10/31/16 12:06 Dose: 3 spray Potassium Phos/Sodium Phos (Neutra-Phos) 1 pkt PO BID [facility] Stop: 11/05/16 10:01 Last Admin: 11/03/16 19:02 Dose: Not Given Prednisone (Prednisone Tab) 20 mg PO DAILY [facility] Last Admin: 11/03/16 09:19 Dose: 20 mg - Labs Labs: 11/03/16 06:45 11/03/16 06:45 - Head Exam Head Exam: ATRAUMATIC, NORMOCEPHALIC - Eye Exam Eye Exam: EOMI, PERRL - ENT Exam Additional comments: mouth ulcers better healing - Neck Exam Neck Exam: Normal Inspection. absent: Lymphadenopathy - Respiratory Exam Respiratory Exam: NORMAL BREATHING PATTERN. absent: Rales, Rhonchi - Cardiovascular Exam Cardiovascular Exam: +S1, +S2. absent: JVD - GI/Abdominal Exam GI & Abdominal Exam: Soft. absent: Tenderness, Mass - Extremities Exam Extremities Exam: absent: Calf Tenderness, Joint Swelling - Neurological Exam Neurological Exam: Alert, Awake, Oriented x3 (possible) Assessment and Plan - Assessment and Plan (Free Text) Assessment: Lthis 86-year-old patient admitted with malnutrition multiple ulcers sepsis. Decubitus ulcers,UTI Patient is on IV antibiotics Patient Would benefit from PEG tube feeding but the patient is refusing PEG tube Continue PPN. I explained to the patient and family earlier that this is only short-term solution. Patient is edentulous would benefit from long-term. Diet
--- NOTE | 2016-11-04 02:06 | CON ---
DATE: 11/03/2016 LOCATION: The patient is in [facility], bed #1. HISTORY OF PRESENT ILLNESS: The patient is known to me for having surgery on the left hip and femur fracture on 08/04/2016. On 09/14/2016, she had a left hip fracture with prosthesis. On 08/04/2016, there was a left femur fracture, below were total hip implant and she had a bipolar prosthesis on 09/14/2016 for a left subcapital fracture and she followed in the rehab hospital. She was admitted to [facility] on 10/25/2016 with extreme weakness and dehydration and orthopedic consult was to see that both the hips and femurs are stable. No evidence of any fractures involved, gave her gentle physical therapy until she could and ambulate with a walker. FINAL DIAGNOSIS: Recent postop from right femur fracture on 08/04/2016 that was a periprosthetic fracture below the hip implant, and on 09/14/2016, she had a left hip fracture that was treated with a left hip bipolar prosthesis. We will start physical therapy. Raymundo Che DO
[2016-11-04] MEDS: Albuterol-Ipratrop 3 mg / 0.5 (3 ml) UD IH SCH ×4 (03:06→20:30)
[2016-11-04] MEDS: Budesonide 0.5 mg/2 ml Inhal Susp UD IH SCH ×2 (07:11→20:30)
--- NOTE | 2016-11-04 08:39 | PN ---
DATE: 11/04/2016 PULMONARY PROGRESS NOTE SUBJECTIVE: The patient appears comfortable this morning. She is not short of breath at rest. PHYSICAL EXAMINATION: VITAL SIGNS (Last noted in the computer): Temperature is 98.5, pulse is 83, respirations this morning is 18, and blood pressure is 140/69. Oxygen saturation on nasal cannula is 96%. HEENT: Normocephalic and atraumatic. NECK: No JVD. CARDIOVASCULAR: Systolic ejection murmur below left sternal border. No S3 gallop. LUNGS: Decreased breath sounds at the bases. Minimal rhonchi. No wheezing. GASTROINTESTINAL: Abdomen is soft, nontender, and nondistended. Bowel sounds are positive. EXTREMITIES: No clubbing, cyanosis, or edema. Calves are nontender to palpation. SKIN: No acute rash. NEUROLOGIC: Limited at the present time. IMPRESSION: 1. Chronic obstructive pulmonary disease. 2. Urosepsis. 3. Malnutrition. 4. Anemia. 5. Gallstones. PLAN: The patient appears comfortable this morning. She is not short of breath at rest. She does state that she is feeling better overall. However, she still remains weak and cachectic looking. On physical exam, there is less bronchospasm noted. In addition, the oxygen saturation on nasal cannula is 96%. I will continue the current nebulizer treatments and low-dose oral steroids for now. The patient remains on antibiotic therapy-as per Infectious Disease. Input by Dr. Fish is noted. Clinical status of the patient is certainly improved overall. However, the future status/prognosis of this elderly patient does remain very guarded. All are aware. I will discuss the above with the attending physician. Olman Kenney MD MTDChantale
--- NOTE | 2016-11-04 10:37 | CP.PCM.PN ---
Subjective - Date & Time of Evaluation Date of Evaluation: 11/04/16 Time of Evaluation: 10:29 - Subjective Subjective: General Surgery Progress note for Dr. Park Patient is scheduled for OR for surgical debridement of sacral wound today Objective - Vital Signs/Intake and Output Vital Signs (last 24 hours): Temp Pulse Resp BP Pulse Ox 98.7 F 91 H 22 140/70 100 11/04/16 07:30 11/04/16 07:30 11/04/16 07:30 11/04/16 07:30 11/04/16 07:30 Intake and Output: 11/04/16 11/04/16 06:59 18:59 Intake Total 2370 120 Output Total 1200 Balance 2370 -1080 - Medications Medications: Current Medications Albuterol/Ipratropium (Duoneb 3 Mg/0.5 Mg (3 Ml) Ud) 3 ml IH [id number] [facility] Last Admin: 11/04/16 07:11 Dose: 3 ml Alprazolam (Xanax) 0.25 mg PO BID PRN; Protocol PRN Reason: Anxiety Stop: 11/10/16 18:01 Benzocaine/Menthol (Cepacol Sore Throat) 1 monica MT Q2H PRN PRN Reason: Sore Throat Budesonide (Pulmicort Respules) 0.5 mg IH BIDRESP [facility] Last Admin: 11/04/16 07:11 Dose: 0.5 mg Collagenase (Santyl) 0 gm TOP DAILY [facility] Last Admin: 11/03/16 09:19 Dose: 1 appful Guaifenesin (Mucinex La) 600 mg PO BID [facility] Last Admin: 11/03/16 19:02 Dose: Not Given Guaifenesin (Robitussin) 200 mg PO Q4H PRN PRN Reason: Cough and congestion Ceftriaxone Sodium (Rocephin 1 Gram Ivpb) 1 gm in 100 mls @ 100 mls/hr IVPB DAILY [facility] PRN Reason: Protocol Stop: 11/09/16 10:01 Last Admin: 11/03/16 12:18 Dose: Not Given Multivitamins/Vitamin C 10 ml/Amino Acids/Electrolytes/Dextrose 2,010 mls @ 83 mls/hr IV .Q24H [facility] Last Admin: 11/03/16 20:44 Dose: 83 mls/hr Lidocaine HCl (Lidocaine 2% Viscous) 15 ml PO Q3H PRN PRN Reason: Pain, Mild (1-3) Last Admin: 11/01/16 09:03 Dose: 15 ml Megestrol Acetate (Megace) 400 mg PO DAILY [facility] Last Admin: 11/03/16 09:27 Dose: Not Given Morphine Sulfate (Morphine) 2 mg IVP Q4H PRN PRN Reason: GI distress Last Admin: 11/03/16 20:55 Dose: 2 mg Nystatin (Nystatin Oral Susp) 5 ml PO QID [facility] Last Admin: 11/04/16 00:00 Dose: 5 ml Phenol/Menthol (Phenaseptic 1.4% Throat [place]) 0 ml MT Q2H PRN PRN Reason: Pain, Mild (1-3) Last Admin: 10/31/16 12:06 Dose: 3 spray Potassium Phos/Sodium Phos (Neutra-Phos) 1 pkt PO BID [facility] Stop: 11/05/16 10:01 Last Admin: 11/03/16 19:02 Dose: Not Given Prednisone (Prednisone Tab) 20 mg PO DAILY [facility] Last Admin: 11/03/16 09:19 Dose: 20 mg - Labs Labs: 11/03/16 06:45 11/03/16 06:45 - Constitutional Appears: No Acute Distress - Head Exam Head Exam: NORMAL INSPECTION - Eye Exam Eye Exam: EOMI, Normal appearance - ENT Exam ENT Exam: Mucous Membranes Moist - Neck Exam Neck Exam: Full ROM, Normal Inspection - Respiratory Exam Respiratory Exam: NORMAL BREATHING PATTERN. absent: Accessory Muscle Use, Respiratory Distress - Cardiovascular Exam Cardiovascular Exam: REGULAR RHYTHM - Extremities Exam Additional comments: left leg and ankle wound with silvadene and dressing - Neurological Exam Neurological Exam: Alert, Awake, Oriented x3 - Skin Skin Exam: Mottled, Pallor Additional comments: sacral wound Assessment and Plan - Assessment and Plan (Free Text) Assessment: 86F presents with sacral and left leg wound Plan: Patient is scheduled for OR for surgical debridement of sacral wound today c/w current medical management c/w current wound care Naye Saini DO PGY1
[2016-11-04] MEDS: Nystatin 100,000 Units/ml Oral Susp 5 ml UD PO SCH ×5 (11:18→23:48)
[2016-11-04] MEDS: Megestrol Acetate 40 mg/ml Cup PO SCH (11:19)
[2016-11-04] MEDS: Potassium & Sodium Phosphate PO SCH ×2 (11:20→18:22)
[2016-11-04] MEDS: guaiFENesin 600 mg ER Tab PO SCH ×2 (11:20→18:22)
[2016-11-04] MEDS: cefTRIAXone 1 gm 1 GM/100 ML BAG IVPB SCH (11:24)
[2016-11-04] MEDS: Collagenase 250 Units/gm Ointment(30 gm) TOP SCH (11:25)
[2016-11-04] MEDS ORDERED: Lactated Ringer's 1,000 ML IV SCH (12:59)
[2016-11-04] MEDS ORDERED: Bupivacaine 0.5% Inj(30mL) ONE (14:06)
[2016-11-04] MEDS ORDERED: Lidocaine 1% Inj (20ml) ONE (14:16)
--- NOTE | 2016-11-04 14:50 | PCM.SURG1 ---
Surgeon's Initial Post Op Note - Surgeon's Notes Surgeon: Dr. Park Stretcher Drier Operator: Dr. Jama PGY-2, Dr. Lira PGY-2 Type of Anesthesia: IV Sedation Pre-Operative Diagnosis: sacral decubitus ulcer Operative Findings: see operative report Post-Operative Diagnosis: see operative report Operation Performed: sacral wound debridement Specimen/Specimens Removed: debrided tissue. tissue culture Estimated Blood Loss: EBL {In ML}: 25 Blood Products Given: N/A Drains Used: No Drains Post-Op Condition: Good Date of Surgery/Procedure: 11/04/16 Time of Surgery/Procedure: 14:50
[2016-11-04] MEDS ORDERED: HYDROmorphone 0.5 mg/0.5 ml ISec IVP PRN ×2 (14:53→14:56)
--- NOTE | 2016-11-04 15:03 | PN ---
DATE: 11/04/2016 SUBJECTIVE: The patient has no complaints of any chest pain or shortness of breath. No headache. PHYSICAL EXAMINATION: VITAL SIGNS: Temperature is 98.7, pulse of 91, blood pressure 140/70, respirations 22. GENERAL: The patient is lying in bed, flat, comfortable. HEENT: In the mouth there are multiple dried up blood that is in the oral mucosa. Anicteric sclerae. NECK: No JVD, adenopathy, or thyromegaly. CARDIOVASCULAR: S1 and S2, regular. No murmurs, rubs, or gallops. LUNGS: Clear to auscultation bilaterally. No wheeze, rales, or rhonchi. ABDOMEN: Bowel sounds are positive, soft, nontender and nondistended. EXTREMITIES: no cyanosis, clubbing or edema. LABORATORY DATA: Creatinine 0.4. Hemoglobin is 10.9. ASSESSMENT: 1. Oral ulcers/mucositis. 2. Failure to thrive. 3. Malnutrition. 4. Pressure ulcer in sacral area, unstageable. 5. Iron-deficiency anemia. 6. Osteoporosis. 7. Cholelithiasis. 8. Hypophosphatemia. 9. Urinary tract infection secondary to Klebsiella. 10. Do not resuscitate/do not intubate. PLAN: The patient states she is currently comfortable, but she has not been eating well according to the nurse I spoke to. The patient does have wound that may need debridement. I spoke with Dr. Park yesterday. He will speak to the patient's daughter, Renata, to try to update her regarding wound care. I did speak to the patient's daughter yesterday and today about the patient's diagnoses and plan of care and the treatment plan. The patient's overall prognosis is poor. She will most likely not benefit from a feeding tube. She also does not wish to have a feeding tube. The patient is on TPN. The patient's family feels that if the ulcers in the mouth are improved then her nutrition may improve because it may be related to pain. The patient has not complained to me about pain in the mouth. She has Klebsiella in the urine. She is being followed by multiple consultants. She is on Morphine for pain. She is on phosphorus because of hypophosphatemia. Her phosphorus has improved. Her albumin is significantly low at 2.3. She is on albuterol. She is going to continue with her Rocephin for antibiotics. She is on Xanax as needed. She is on a dysphagia diet. She is getting local wound care. She is on an air mattress. She is being turned to relieve the pressure. May need to send her to the transitional care unit and then from there home. The patient's family is agreeable to that. The patient is DNR/DNI. We have talked about end-of-life care, palliative care as well with the family. They are more open to the idea as this is what the patient would have wanted. The patient would have wanted to be at home and still is able to verbalize that. She is not a good rehab potential as she is not able to work well with physical therapy because of her underlying condition. Tristan Gutierrez MD
[2016-11-04] MEDS: HYDROmorphone 0.5 mg/0.5 ml ISec IVP PRN (19:05)
--- NOTE | 2016-11-04 22:56 | PN ---
DATE: 11/04/2016 SUBJECTIVE: The patient seen early this morning in 574, bed 1. Overall, she is in poor condition. She appears much, much older than her stated age of 86. PHYSICAL EXAMINATION: VITAL SIGNS: Temperature is 97, blood pressure is 130/80, respiratory rate of 20, heart rate of 104. HEENT: Unremarkable. NECK: Supple. LUNGS: Decreased breath sounds. HEART: Normal S1 and S2. ABDOMEN: Soft. LABORATORY DATA: Reveals a white count of 6.4, hemoglobin of 10, platelets of 222, BUN of 16, creatinine of 0.4. Procalcitonin is 0.8. Urinalysis is noted. Microbiology reveals sacral cultures noted and urine culture has Klebsiella. Review of orders reveal the patient continues to be off ceftriaxone. ASSESSMENT AND PLAN: An 86-year-old female seen early this morning, who appears older than her stated age with sepsis due to urinary tract infection, Klebsiella, unstageable sacral ulcer and dementia, history of pelvic fracture, gallstones, on ceftriaxone day #7, would complete 7 to 10 days, for local wound sacral ulcer care. Overall prognosis is quite poor for this patient with multiple medical problems including dementia, gallstones, pelvic fracture by history, urinary incontinence, osteoporosis and chronic anemia. Praveen Fish MD
--- NOTE | 2016-11-05 00:22 | PN ---
DATE: 11/04/2016 SUBJECTIVE: This patient was seen and evaluated earlier today. The patient has mouth ulcers more prominent this time. Still p.o. intake remains low, refusing feeding tube placement. PHYSICAL EXAMINATION VITAL SIGNS: Temperature 97.7, blood pressure 115/52, pulse 98, respirations 20 and oxygen saturation 97%. HEENT: Atraumatic. Mouth ulcers present. NECK: Supple. HEART: S1 and S2 heard. LUNGS: Bilateral air entry present. ABDOMEN: Soft. There is no tenderness. EXTREMITIES: No cyanosis. No clubbing. LABORATORY DATA: There is no labs today. Yesterday the hemoglobin was actually 10.9, it is improved post-transfusion. IMPRESSION: This 86-year-old patient is admitted with malnutrition, multiple ulcers, urinary tract infection, decubitus ulcers, poor p.o. intake, the patient has poor dentition and mouth ulcers, out of bed and refused feeding tube placement. The patient is presently on total parenteral nutrition. Continue the antibiotic as per infectious disease. Supportive care discussed with Dr. Piña earlier. Camilo Servin MD
[2016-11-05] MEDS: Albuterol-Ipratrop 3 mg / 0.5 (3 ml) UD IH SCH ×4 (01:31→20:43)
--- NOTE | 2016-11-05 08:19 | CP.PCM.PN ---
Subjective - Date & Time of Evaluation Date of Evaluation: 11/05/16 Time of Evaluation: 08:15 - Subjective Subjective: General Surgery Progress note for Dr. Park Patient is scheduled for OR for surgical debridement of sacral wound yesterday. Patient was seen sleeping in bed with breathing treatment. Objective - Vital Signs/Intake and Output Vital Signs (last 24 hours): Temp Pulse Resp BP Pulse Ox 98.6 F 91 H 21 111/59 L 96 11/05/16 08:00 11/05/16 08:00 11/05/16 08:00 11/05/16 08:00 11/05/16 08:00 Intake and Output: 11/05/16 11/05/16 06:59 18:59 Intake Total 720 Output Total 1500 Balance -780 - Medications Medications: Current Medications Albuterol/Ipratropium (Duoneb 3 Mg/0.5 Mg (3 Ml) Ud) 3 ml IH [id number] [facility] Last Admin: 11/05/16 01:31 Dose: 3 ml Alprazolam (Xanax) 0.25 mg PO BID PRN; Protocol PRN Reason: Anxiety Stop: 11/10/16 18:01 Benzocaine/Menthol (Cepacol Sore Throat) 1 monica MT Q2H PRN PRN Reason: Sore Throat Budesonide (Pulmicort Respules) 0.5 mg IH BIDRESP [facility] Last Admin: 11/04/16 20:30 Dose: 0.5 mg Collagenase (Santyl) 0 gm TOP DAILY [facility] Last Admin: 11/04/16 11:25 Dose: 1 appful Guaifenesin (Mucinex La) 600 mg PO BID [facility] Last Admin: 11/04/16 18:22 Dose: Not Given Guaifenesin (Robitussin) 200 mg PO Q4H PRN PRN Reason: Cough and congestion Hydromorphone HCl (Dilaudid) 0.5 mg IVP Q4H PRN PRN Reason: Pain, severe (8-10) Last Admin: 11/04/16 19:05 Dose: 0.5 mg Ceftriaxone Sodium (Rocephin 1 Gram Ivpb) 1 gm in 100 mls @ 100 mls/hr IVPB DAILY [facility] PRN Reason: Protocol Stop: 11/09/16 10:01 Last Admin: 11/04/16 11:24 Dose: 100 mls/hr Multivitamins/Vitamin C 10 ml/Amino Acids/Electrolytes/Dextrose 2,010 mls @ 83 mls/hr IV .Q24H [facility] Last Admin: 11/04/16 22:10 Dose: 83 mls/hr Lidocaine HCl (Lidocaine 2% Viscous) 15 ml PO Q3H PRN PRN Reason: Pain, Mild (1-3) Last Admin: 11/04/16 11:18 Dose: 15 ml Megestrol Acetate (Megace) 400 mg PO DAILY [facility] Last Admin: 11/04/16 11:19 Dose: Not Given Nystatin (Nystatin Oral Susp) 5 ml PO QID [facility] Last Admin: 11/04/16 23:48 Dose: Not Given Oxycodone/Acetaminophen (Percocet 2.5/325 Mg Tab) 2 tab PO Q4H PRN PRN Reason: Pain, moderate (4-7) Phenol/Menthol (Phenaseptic 1.4% Throat [place]) 0 ml MT Q2H PRN PRN Reason: Pain, Mild (1-3) Last Admin: 10/31/16 12:06 Dose: 3 spray Potassium Phos/Sodium Phos (Neutra-Phos) 1 pkt PO BID [facility] Stop: 11/05/16 10:01 Last Admin: 11/04/16 18:22 Dose: Not Given Prednisone (Prednisone Tab) 10 mg PO DAILY [facility] - Labs Labs: 11/03/16 06:45 11/03/16 06:45 - Constitutional Appears: Non-toxic, No Acute Distress - Head Exam Head Exam: NORMAL INSPECTION - Eye Exam Eye Exam: EOMI, Normal appearance - ENT Exam ENT Exam: Mucous Membranes Moist - Neck Exam Neck Exam: Full ROM, Normal Inspection - Respiratory Exam Respiratory Exam: Clear to Ausculation Bilateral, NORMAL BREATHING PATTERN. absent: Accessory Muscle Use, Respiratory Distress - Cardiovascular Exam Cardiovascular Exam: REGULAR RHYTHM. absent: Bradycardia, Tachycardia - GI/Abdominal Exam GI & Abdominal Exam: Soft, Normal Bowel Sounds. absent: Tenderness, Rebound - Extremities Exam Extremities Exam: Full ROM, Normal Capillary Refill - Psychiatric Exam Psychiatric exam: Normal Affect, Normal Mood - Skin Skin Exam: Dry, Intact, Normal Color, Warm Assessment and Plan - Assessment and Plan (Free Text) Assessment: 86F presents with pressure wounds s/p surgical debridement POD#1 Plan: c/w current medical management c/w current wound care, air mattress, wound vac Naye Saini DO PGY1
[2016-11-05] MEDS: Budesonide 0.5 mg/2 ml Inhal Susp UD IH SCH ×2 (08:41→20:43)
--- NOTE | 2016-11-05 08:53 | PN ---
DATE: 11/05/2016 SUBJECTIVE: The patient appears comfortable this morning. She is not short of breath at rest. PHYSICAL EXAMINATION: VITAL SIGNS: Temperature 98.3, pulse is 88, respirations 18, blood pressure 130/65. Oxygen saturation on face tent is 95%. HEENT: Normocephalic and atraumatic. NECK: No JVD. CARDIOVASCULAR: Systolic ejection murmur at the lower left sternal border. No S3 gallop. LUNGS: Decreased breath sounds at the bases. Minimal/less rhonchi. No wheezing. EXTREMITIES: No clubbing, cyanosis, or edema. Calves are nontender to palpation. GASTROINTESTINAL: Abdomen is soft, nontender, and nondistended. Bowel sounds are positive. SKIN: No acute rash. NEUROLOGIC: Limited at the present time. IMPRESSION: 1. Chronic obstructive pulmonary disease. 2. Urosepsis. 3. Malnutrition. 4. Anemia. 5. Gallstones. PLAN: The patient appears comfortable this morning. She is not short of breath at rest. She does state to feeling better overall. I did discuss the case with the night nurse at length. The night nurse stated that the patient was switched to face tent-- as per ENT. The patient remains on antibiotic therapy-as per infectious disease. Input by Dr. Fish is noted. There are no temperatures noted. There is no leukocytosis. Clinical status of the patient is certainly improved overall. However, again, the overall status/prognosis for this patient remains very guarded. I will decrease the oral steroids this morning and continue with the nebulizer treatments. I will discuss the above with the attending physician. Olman Kenney MD TO
[2016-11-05] MEDS: Potassium & Sodium Phosphate PO SCH (09:31)
[2016-11-05] MEDS: Megestrol Acetate 40 mg/ml Cup PO SCH (09:31)
[2016-11-05] MEDS: Nystatin 100,000 Units/ml Oral Susp 5 ml UD PO SCH ×4 (09:31→22:00)
[2016-11-05] MEDS: guaiFENesin 600 mg ER Tab PO SCH ×2 (09:31→17:26)
[2016-11-05] MEDS: Collagenase 250 Units/gm Ointment(30 gm) TOP SCH (09:32)
[2016-11-05] MEDS: cefTRIAXone 1 gm 1 GM/100 ML BAG IVPB SCH (10:13)
[2016-11-05] MEDS: HYDROmorphone 0.5 mg/0.5 ml ISec IVP PRN ×3 (10:13→19:27)
--- NOTE | 2016-11-05 11:14 | PN ---
DATE: 11/05/2016 SUBJECTIVE: The patient has no complaints of any chest pain. She states she does not feel well, but does not able to tell exactly why. She denies pain. OBJECTIVE: VITAL SIGNS: Temperature is 98.6, pulse of 91, blood pressure is 111/59, respirations 21. GENERAL: The patient is lying in bed, flat, comfortable. HEENT: No oral lesion. Anicteric sclerae. Moist mucosa. In the mouth, there are multiple small ulcers with some dried areas in blood. NECK: No JVD, adenopathy, or thyromegaly. CARDIOVASCULAR: S1 and S2, regular. No murmurs, rubs, or gallops. LUNGS: Clear to auscultation bilaterally. No wheeze, rales, or rhonchi. ABDOMEN: Bowel sounds are positive, soft, nontender and nondistended. EXTREMITIES: no cyanosis, clubbing or edema. MUSCULOSKELETAL: In the back there is sacral pressure ulcer, unstageable. ASSESSMENT: 1. Oral ulcer/mucositis. 2. Sacral pressure ulcer status post debridement. 3. Malnutrition. 4. Iron deficiency anemia. 5. Osteoporosis. 6. Cholelithiasis. 7. Hypophosphatemia. 8. Urinary tract infection secondary to Klebsiella. 9. Do not resuscitate/do not intubate. PLAN: The patient's overall prognosis is poor. I did speak to Dr. Pena yesterday as the patient has a second AMP evaluation done yesterday as well. The patient continues to have ulcers and this is secondary to her underlying condition. This will be just supportive care. She is refusing PEG placement. The patient has overall poor prognosis. The patient's family has been informed about the underlying condition. They do not wish to take the patient at home unless the patient able to eat. I am not sure if the patient is going to get back to her previous state at this point. We have had end of life care discussions as well. The patient is on PPN, but has not made much improvement in terms of her underlying condition. She has been on Rocephin for antibiotics mostly for the urinary tract infection. We will repeat the patient's blood work tomorrow. Tristan Gutierrez MD [facility] # [id number]
--- NOTE | 2016-11-05 11:30 | CP.PCM.PCO ---
Addendum Addendum: 11/05/16 11:29 f/u on this pt briefly pt presented in good spirit, denied being depressed, denied any pain or discomfort as per medical team prognosis is poor please reconsult as needed thank you very much for letting me to participate in care of your pt
--- NOTE | 2016-11-05 20:00 | CP.PCM.PN ---
Subjective - Date & Time of Evaluation Date of Evaluation: 11/05/16 Time of Evaluation: 12:05 - Subjective Subjective: Comfortable, not in distress, no fevers. Objective - Vital Signs/Intake and Output Vital Signs (last 24 hours): Temp Pulse Resp BP Pulse Ox 98.3 F 92 H 20 130/65 96 11/04/16 16:00 11/04/16 16:00 11/04/16 16:00 11/04/16 16:00 11/04/16 16:00 Intake and Output: 11/04/16 11/05/16 18:59 06:59 Intake Total 120 720 Output Total 1200 1500 Balance -1080 -780 - Medications Medications: Current Medications Albuterol/Ipratropium (Duoneb 3 Mg/0.5 Mg (3 Ml) Ud) 3 ml IH [id number] [facility] Last Admin: 11/05/16 01:31 Dose: 3 ml Alprazolam (Xanax) 0.25 mg PO BID PRN; Protocol PRN Reason: Anxiety Stop: 11/10/16 18:01 Benzocaine/Menthol (Cepacol Sore Throat) 1 monica MT Q2H PRN PRN Reason: Sore Throat Budesonide (Pulmicort Respules) 0.5 mg IH BIDRESP [facility] Last Admin: 11/04/16 20:30 Dose: 0.5 mg Collagenase (Santyl) 0 gm TOP DAILY [facility] Last Admin: 11/04/16 11:25 Dose: 1 appful Guaifenesin (Mucinex La) 600 mg PO BID [facility] Last Admin: 11/04/16 18:22 Dose: Not Given Guaifenesin (Robitussin) 200 mg PO Q4H PRN PRN Reason: Cough and congestion Hydromorphone HCl (Dilaudid) 0.5 mg IVP Q4H PRN PRN Reason: Pain, severe (8-10) Last Admin: 11/04/16 19:05 Dose: 0.5 mg Ceftriaxone Sodium (Rocephin 1 Gram Ivpb) 1 gm in 100 mls @ 100 mls/hr IVPB DAILY [facility] PRN Reason: Protocol Stop: 11/09/16 10:01 Last Admin: 11/04/16 11:24 Dose: 100 mls/hr Multivitamins/Vitamin C 10 ml/Amino Acids/Electrolytes/Dextrose 2,010 mls @ 83 mls/hr IV .Q24H [facility] Last Admin: 11/04/16 22:10 Dose: 83 mls/hr Lidocaine HCl (Lidocaine 2% Viscous) 15 ml PO Q3H PRN PRN Reason: Pain, Mild (1-3) Last Admin: 11/04/16 11:18 Dose: 15 ml Megestrol Acetate (Megace) 400 mg PO DAILY [facility] Last Admin: 11/04/16 11:19 Dose: Not Given Nystatin (Nystatin Oral Susp) 5 ml PO QID [facility] Last Admin: 11/04/16 23:48 Dose: Not Given Oxycodone/Acetaminophen (Percocet 2.5/325 Mg Tab) 2 tab PO Q4H PRN PRN Reason: Pain, moderate (4-7) Phenol/Menthol (Phenaseptic 1.4% Throat [place]) 0 ml MT Q2H PRN PRN Reason: Pain, Mild (1-3) Last Admin: 10/31/16 12:06 Dose: 3 spray Potassium Phos/Sodium Phos (Neutra-Phos) 1 pkt PO BID [facility] Stop: 11/05/16 10:01 Last Admin: 11/04/16 18:22 Dose: Not Given Prednisone (Prednisone Tab) 20 mg PO DAILY [facility] Last Admin: 11/04/16 11:23 Dose: Not Given - Labs Labs: 11/03/16 06:45 11/03/16 06:45 - Constitutional Appears: Non-toxic, No Acute Distress - Head Exam Head Exam: NORMAL INSPECTION - ENT Exam ENT Exam: Mucous Membranes Moist - Neck Exam Neck Exam: absent: Meningismus - Respiratory Exam Respiratory Exam: Decreased Breath Sounds - Cardiovascular Exam Cardiovascular Exam: +S1, +S2 - GI/Abdominal Exam GI & Abdominal Exam: Soft. absent: Tenderness Assessment and Plan - Assessment and Plan (Free Text) Plan: Assessment sepsis due to urinary tract infection with Klebsiella, clinically improving unstageable sacral ulcer S/P surgical debridement POD #1 dementia history of pelvic fracture gallstones history of urinary incontinence osteoporosis chronic anemia Plan continue Rocephin to complete 7-10 days (Day 8 today); continue local wound care for sacral ulcer - follow up OR cx and pathology will monitor clinically
[2016-11-06] MEDS: Albuterol-Ipratrop 3 mg / 0.5 (3 ml) UD IH SCH ×4 (01:50→20:26)
[2016-11-06] MEDS: HYDROmorphone 0.5 mg/0.5 ml ISec IVP PRN ×4 (04:41→22:50)
[2016-11-06 06:57] LABS: HEMATOCRIT 32.3 % (36.0-48.0); MEAN CELL VOLUME 82.4 fl (80.0-105.0); MEAN CORPUSCULAR HEMOGLOBIN 26.5 pg (25.0-35.0); MEAN CORPUSCULAR HGB CONC 32.2 g/dl (31.0-37.0); MEAN PLATELET VOLUME 9.9 fl (7.0-11.0); RED CELL DISTRIBUTION WIDTH 16.8 % (11.5-14.5); WHITE BLOOD COUNT 6.7 10^3/ul (4.5-11.0)
[2016-11-06 07:16] LABS: ALB/GLOB RATIO 1.2 (1.1-1.8); ALKALINE PHOSPHATASE 87 U/L (38-126); ALT/SGPT 42 U/L (7-56); AST/SGOT 33 U/L (14-36); BILIRUBIN,TOTAL 0.7 mg/dL (0.2-1.3); BLOOD UREA NITROGEN 19 mg/dL (7-21); CALCIUM 7.6 mg/dL (8.4-10.5); CARBON DIOXIDE 25 mmol/L (21-33); CHLORIDE 97 mmol/L (98-107); GFR AFRICAN-AMERICAN > 60; GLUCOSE,RANDOM 97 mg/dL (70-110); MAGNESIUM 2.2 mg/dL (1.7-2.2); PHOSPHOROUS 2.7 mg/dL (2.5-4.5); POTASSIUM 4.4 mmol/L (3.6-5.0); SODIUM 127 mmol/L (132-148); TOTAL PROTEIN 4.4 g/dL (5.8-8.3)
[2016-11-06] MEDS: Budesonide 0.5 mg/2 ml Inhal Susp UD IH SCH ×2 (07:28→20:26)
[2016-11-06] MEDS: Collagenase 250 Units/gm Ointment(30 gm) TOP SCH (09:12)
--- NOTE | 2016-11-06 09:55 | CP.PCM.PN ---
Subjective - Date & Time of Evaluation Date of Evaluation: 11/06/16 Time of Evaluation: 08:15 - Subjective Subjective: Patient seen and examined. No acute events over night. Sacral wound dressing changed, optifoam dressing placed. Patient too uncooperative and refusing wound vac placement. Objective - Vital Signs/Intake and Output Vital Signs (last 24 hours): Temp Pulse Resp BP Pulse Ox 98.9 F 95 H 22 92/56 L 96 11/06/16 07:53 11/06/16 07:53 11/06/16 07:53 11/06/16 07:53 11/06/16 07:53 Intake and Output: 11/06/16 11/06/16 06:59 18:59 Intake Total 1992 Output Total 500 Balance 1492 - Medications Medications: Current Medications Albuterol/Ipratropium (Duoneb 3 Mg/0.5 Mg (3 Ml) Ud) [id number] [facility] Last Admin: 11/06/16 07:29 Dose: 3 ml Alprazolam (Xanax) 0.25 mg PO BID PRN; Protocol PRN Reason: Anxiety Stop: 11/10/16 18:01 Benzocaine/Menthol (Cepacol Sore Throat) 1 monica MT Q2H PRN PRN Reason: Sore Throat Budesonide (Pulmicort Respules) 0.[address] [facility] Last Admin: 11/06/16 07:28 Dose: 0.5 mg Collagenase (Santyl) [address] [facility] Last Admin: 11/05/16 09:32 Dose: Not Given Guaifenesin (Mucinex La) [address] [facility] Last Admin: 11/05/16 17:26 Dose: Not Given Guaifenesin (Robitussin) 200 mg PO Q4H PRN PRN Reason: Cough and congestion Hydromorphone HCl (Dilaudid) 0.5 mg IVP Q4H PRN PRN Reason: Pain, severe (8-10) Last Admin: 11/06/16 04:41 Dose: 0.5 mg Ceftriaxone Sodium (Rocephin 1 Gram Ivpb) 1 gm in 100 mls @ 100 mls/hr IVPB DAILY [facility] PRN Reason: Protocol Stop: 11/09/16 10:01 Last Admin: 11/05/16 10:13 Dose: 100 mls/hr Multivitamins/Vitamin C 10 ml/Amino Acids/Electrolytes/Dextrose 2,010 mls @ 83 mls/hr IV .Q24H [facility] Last Admin: 11/05/16 17:26 Dose: 83 mls/hr Lidocaine HCl (Lidocaine 2% Viscous) 15 ml PO Q3H PRN PRN Reason: Pain, Mild (1-3) Last Admin: 11/04/16 11:18 Dose: 15 ml Megestrol Acetate (Megace) [address] [facility] Last Admin: 11/05/16 09:31 Dose: Not Given Nystatin (Nystatin Oral Susp) [address] [facility] Last Admin: 11/05/16 22:00 Dose: Not Given Oxycodone/Acetaminophen (Percocet 2.5/325 Mg Tab) 2 tab PO Q4H PRN PRN Reason: Pain, moderate (4-7) Phenol/Menthol (Phenaseptic 1.4% Throat [place]) 0 ml MT Q2H PRN PRN Reason: Pain, Mild (1-3) Last Admin: 10/31/16 12:06 Dose: 3 spray Prednisone (Prednisone Tab) [address] [facility] Last Admin: 11/05/16 09:31 Dose: Not Given - Labs Labs: 11/06/16 06:30 11/06/16 06:30 - Constitutional Appears: No Acute Distress - Head Exam Head Exam: NORMOCEPHALIC - Eye Exam Eye Exam: Normal appearance - Respiratory Exam Respiratory Exam: NORMAL BREATHING PATTERN - Cardiovascular Exam Cardiovascular Exam: +S1, +S2 - GI/Abdominal Exam GI & Abdominal Exam: Soft - Neurological Exam Neurological Exam: Alert, Awake - Skin Additional comments: sacral decubitus ulcer. Wound progressing appropriately Assessment and Plan - Assessment and Plan (Free Text) Assessment: 86F w/ sacral decubitus ulcer s/p wound debridement POD2 -Local wound care -Recommend wound vac placement, currently patient is refusing -Medicine as per primary team -Further recs per Dr. Xavier Jama PGY-2
[2016-11-06] MEDS: Megestrol Acetate 40 mg/ml Cup PO SCH (10:10)
[2016-11-06] MEDS: Nystatin 100,000 Units/ml Oral Susp 5 ml UD PO SCH ×4 (10:11→22:00)
[2016-11-06] MEDS: guaiFENesin 600 mg ER Tab PO SCH ×2 (10:11→18:11)
--- NOTE | 2016-11-06 10:12 | PN ---
DATE: 11/06/2016 PULMONARY PROGRESS NOTE SUBJECTIVE: The patient was seen and examined at bedside. She is receiving inhalation treatment currently with DuoNeb and added budesonide. She is still on antibiotics ceftriaxone as per Infectious Disease. PHYSICAL EXAMINATION: VITAL SIGNS: Today, her temperature is 98.9, pulse 95, respirations 20, pulse oximetry is 96% on room air. HEENT: Within normal limits. NECK: Supple with no jugular vein distention. CHEST: Symmetrical. HEART: S1 and S2, no S3, irregular. PULMONARY: Diminished breath sounds at both bases. No wheezing. GASTROINTESTINAL: Soft and nontender. No organomegaly. EXTREMITIES: No pedal edema. SKIN: Clear with no skin rashes and no cyanosis. NEUROLOGIC: No focal deficits. ASSESSMENT: 1. Chronic obstructive pulmonary disease, improved. 2. Pneumonia, resolved. 3. Failure to thrive. 4. Hyponatremia. 5. Anemia. PLAN: I have reviewed today's laboratory data. Her hemoglobin is 10.4, hematocrit is 32, and WBC is 6.7. Her albumin is markedly reduced to 2.3. Calcium is 7.6 due to hypoalbuminemia. Her serum sodium is still reduced to 127 as a sign of mild hyponatremia. Chloride is 97. Liver function tests are within normal limits. The patient's pulmonary status has improved. She is off oxygen. There is no alveolar-arterial oxygen gradient. We will continue with nebulizer treatment with added inhalant steroids. Continue antibiotics as per ID. Close followup. Masood Porter MD MTDD
[2016-11-06] MEDS: cefTRIAXone 1 gm 1 GM/100 ML BAG IVPB SCH (12:02)
--- NOTE | 2016-11-06 12:14 | RAD ---
PROCEDURE: Bilateral femurs HISTORY: paain COMPARISON: TECHNIQUE: Three views of the right femur one view of the left. 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 There is no visible fracture. The distal femur was not included. There is a plate and multiple screws in the proximal right femur. No acute fracture. IMPRESSION: Limited study. No acute findings
--- NOTE | 2016-11-06 12:16 | RAD ---
PROCEDURE: Pelvis single view HISTORY: pain COMPARISON: TECHNIQUE: Single-view FINDINGS: Bilateral hip prosthesis. No evidence of pelvic fracture IMPRESSION: No acute findings
[2016-11-07] MEDS: Albuterol-Ipratrop 3 mg / 0.5 (3 ml) UD IH SCH ×4 (02:26→20:03)
--- NOTE | 2016-11-07 03:41 | CP.PCM.PN ---
Subjective - Date & Time of Evaluation Date of Evaluation: 11/02/16 Time of Evaluation: 23:00 - Subjective Subjective: S:Nurse called and asked for order of xanax. As patient is awake and restless. Patient offers no complaints. Medical record was reviewed. O:VSS. LUNGS:Normal breathing pattern. A:Restlessness. P:Xanax 0.25 mg PO stat. Objective - Vital Signs/Intake and Output Vital Signs (last 24 hours): Temp Pulse Resp BP Pulse Ox 97 F L 93 H 16 96/50 L 100 11/07/16 00:26 11/07/16 00:26 11/07/16 00:26 11/07/16 00:26 11/07/16 00:26 Intake and Output: 11/06/16 11/07/16 18:59 06:59 Output Total 600 Balance -600 - Medications Medications: Current Medications Albuterol/Ipratropium (Duoneb 3 Mg/0.5 Mg (3 Ml) Ud) 3 ml [id number] Last Admin: 11/07/16 02:26 Dose: 3 ml Alprazolam (Xanax) 0.25 mg PO BID PRN; Protocol PRN Reason: Anxiety Stop: 11/10/16 18:01 Last Admin: 11/06/16 14:47 Dose: 0.25 mg Benzocaine/Menthol (Cepacol Sore Throat) 1 monica MT Q2H PRN PRN Reason: Sore Throat Budesonide (Pulmicort Respules) 0.5 mg IH BIDRESP [facility] Last Admin: 11/06/16 20:26 Dose: 0.5 mg Collagenase (Santyl) 0 gm TOP DAILY [facility] Last Admin: 11/06/16 09:12 Dose: 1 appful Guaifenesin (Mucinex La) 600 mg PO BID [facility] Last Admin: 11/06/16 18:11 Dose: Not Given Guaifenesin (Robitussin) 200 mg PO Q4H PRN PRN Reason: Cough and congestion Hydromorphone HCl (Dilaudid) 0.5 mg IVP Q4H PRN PRN Reason: Pain, severe (8-10) Last Admin: 11/06/16 22:50 Dose: 0.5 mg Ceftriaxone Sodium (Rocephin 1 Gram Ivpb) 1 gm in 100 mls @ 100 mls/hr [facility]PB [facility] PRN Reason: Protocol Stop: 11/09/16 10:01 Last Admin: 11/06/16 12:02 Dose: 100 mls/hr Multivitamins/Vitamin C 10 ml/Amino Acids/Electrolytes/Dextrose 2,010 mls @ 83 mls/hr IV .Q24H [facility] Last Admin: 11/06/16 21:23 Dose: 83 mls/hr Lidocaine HCl (Lidocaine 2% Viscous) 15 ml PO Q3H PRN PRN Reason: Pain, Mild (1-3) Last Admin: 11/04/16 11:18 Dose: 15 ml Megestrol Acetate (Megace) 400 mg PO [facility]ILY [facility] Last Admin: 11/06/16 10:10 Dose: Not Given Nystatin (Nystatin Oral Susp) 5 ml PO QID [facility] Last Admin: 11/06/16 22:00 Dose: Not Given Oxycodone/Acetaminophen (Percocet 2.5/325 Mg Tab) 2 tab PO Q4H PRN PRN Reason: Pain, moderate (4-7) Phenol/Menthol (Phenaseptic 1.4% Throat [place]) 0 ml MT Q2H PRN PRN Reason: Pain, Mild (1-3) Last Admin: 10/31/16 12:06 Dose: 3 spray Prednisone (Prednisone Tab) 10 mg PO DAILY [facility] Last Admin: 11/06/16 10:12 Dose: Not Given - Labs Labs: 11/06/16 06:30 11/06/16 06:30
[2016-11-07] MEDS: HYDROmorphone 0.5 mg/0.5 ml ISec IVP PRN ×3 (04:21→18:33)
[2016-11-07] MEDS: Budesonide 0.5 mg/2 ml Inhal Susp UD IH SCH ×2 (07:58→20:03)
--- NOTE | 2016-11-07 09:39 | PN ---
DATE: 11/07/2016 PULMONARY PROGRESS NOTE SUBJECTIVE: The patient was seen and examined at bedside. She is not complaining of shortness of breath. She is on nebulizer treatments 3 times a day. PHYSICAL EXAMINATION VITAL SIGNS: Temperature 98.9, pulse 90, respirations 20, pulse oximetry is 96% on room air. EXAMINATION OF HEAD, EARS, NOSE AND THROAT: Within normal limits. NECK: Supple with no jugular vein distension. CARDIOVASCULAR: S1, S2. No S3, irregular. PULMONARY: Diminished breath sounds at both bases. No wheezing. GASTROINTESTINAL: Soft. Nontender. No organomegaly. EXTREMITIES: No pedal edema. SKIN: Clear with no skin rashes and no cyanosis. NEUROLOGIC: No focal deficits. ASSESSMENT: 1. Chronic obstructive pulmonary disease, improved. 2. Pneumonia, resolved. 3. Failure to thrive. 4. Hyponatremia. 5. Anemia. PLAN: The patient's laboratory data was reviewed and reported. Yesterday, pulmonary status remains stable. She is off oxygen. She will continue receiving her nebulizer treatment and close followup is advised. Masood Porter MD
[2016-11-07] MEDS: Megestrol Acetate 40 mg/ml Cup PO SCH ×2 (10:07→11:07)
[2016-11-07] MEDS: guaiFENesin 600 mg ER Tab PO SCH ×3 (10:08→17:31)
[2016-11-07] MEDS: Nystatin 100,000 Units/ml Oral Susp 5 ml UD PO SCH ×5 (10:08→23:04)
[2016-11-07] MEDS: Piperacill/Tazo 4.5gm in NS 4.5 GM/100 ML BAG IVPB SCH ×3 (11:07→23:05)
[2016-11-07] MEDS: Collagenase 250 Units/gm Ointment(30 gm) TOP SCH (11:08)
--- NOTE | 2016-11-07 12:58 | PN ---
DATE: 11/07/2016 SUBJECTIVE: She is comfortable in bed, in no acute distress. She is on PPN. She continues to be on IV antibiotics for sepsis. No events overnight. She is asking for food but unable to swallow. REVIEW OS SYSTEM: As per HPI. Rest of the 12-point review of systems reviewed and negative. PHYSICAL EXAMINATION: GENERAL: Comfortable in bed in no acute distress. VITAL SIGNS: Temperature 98.6, heart rate is 100 per minute, blood pressure 110/70, respiratory rate 18 per minute, and oxygen saturation 98% on room air. HEENT: Normal. Pallor positive. Cachexia. NECK: No lymphadenopathy. CHEST: Air entry present and equal bilaterally, no added sound. CARDIOVASCULAR: Within normal limits. ABDOMEN: Soft and nontender. No hepatosplenomegaly. EXTREMITIES: No edema. CENTRAL NERVOUS SYSTEM: Alert and oriented x3. LABORATORY DATA: White count 6.4, hemoglobin 10.9, hematocrit 34.8, and platelet count of 222. Sodium 133, potassium 3.9, BUN 16, creatinine 0.4, and glucose 85. MEDICATIONS: DuoNeb p.r.n., Xanax 0.25 mg p.o. b.i.d., Pulmicort inhalation, collagenase topical, Dilaudid 0.5 mg q. 4 hours p.r.n., multivitamin, Percocet 2 tablets q. 4 hours p.r.n., prednisone 10 mg daily, and Zosyn q. 6 hours p.r.n. ASSESSMENT: 1. Failure to thrive. 2. Oral ulcer. 3. Sepsis. 4. Pelvic fracture. 5. Anemia. 6. Decubitus ulcer. PLAN: Continue IV antibiotic as per ID. She was getting PPN for nutrition. Discussion ongoing with the family for hospice. She has unstageable sacral ulcer, status post debridement; history of pelvic fracture, stable. Pain control with current medications. Chronic anemia, hemoglobin and hematocrit stable. Continue current medications. Discussed with son bedside. Answered all his questions. Arlene Angelo MD [facility] HOSPITALChantale
[2016-11-07] MEDS: Oxycodone/Acetaminophen 2.5/325 mg Tab PO PRN ×2 (15:03→19:30)
--- NOTE | 2016-11-07 18:26 | CP.PCM.PN ---
Subjective - Date & Time of Evaluation Date of Evaluation: 11/07/16 Time of Evaluation: 11:10 - Subjective Subjective: Comfortable, afebrile. Objective - Vital Signs/Intake and Output Vital Signs (last 24 hours): Temp Pulse Resp BP Pulse Ox 98.6 F 87 19 100/59 L 98 11/05/16 16:48 11/05/16 16:48 11/05/16 16:48 11/05/16 16:48 11/05/16 16:48 Intake and Output: 11/05/16 11/06/16 18:59 06:59 Output Total 500 Balance -500 - Medications Medications: Current Medications Albuterol/Ipratropium (Duoneb 3 Mg/0.5 Mg (3 Ml) Ud) 3 ml IH [id number] [facility] Last Admin: 11/05/16 13:27 Dose: 3 ml Alprazolam (Xanax) 0.25 mg PO BID PRN; Protocol PRN Reason: Anxiety Stop: 11/10/16 18:01 Benzocaine/Menthol (Cepacol Sore Throat) 1 monica MT Q2H PRN PRN Reason: Sore Throat Budesonide (Pulmicort Respules) 0.5 mg IH BIDRESP [facility] Last Admin: 11/05/16 08:41 Dose: 0.5 mg Collagenase (Santyl) 0 gm TOP DAILY [facility] Last Admin: 11/05/16 09:32 Dose: Not Given Guaifenesin (Mucinex La) 600 mg PO BID [facility] Last Admin: 11/05/16 17:26 Dose: Not Given Guaifenesin (Robitussin) 200 mg PO Q4H PRN PRN Reason: Cough and congestion Hydromorphone HCl (Dilaudid) 0.5 mg IVP Q4H PRN PRN Reason: Pain, severe (8-10) Last Admin: 11/05/16 19:27 Dose: 0.5 mg Ceftriaxone Sodium (Rocephin 1 Gram Ivpb) 1 gm in 100 mls @ 100 mls/hr IVPB DAILY [facility] PRN Reason: Protocol Stop: 11/09/16 10:01 Last Admin: 11/05/16 10:13 Dose: 100 mls/hr Multivitamins/Vitamin C 10 ml/Amino Acids/Electrolytes/Dextrose 2,010 mls @ 83 mls/hr IV .Q24H [facility] Last Admin: 11/05/16 17:26 Dose: 83 mls/hr Lidocaine HCl (Lidocaine 2% Viscous) 15 ml PO Q3H PRN PRN Reason: Pain, Mild (1-3) Last Admin: 11/04/16 11:18 Dose: 15 ml Megestrol Acetate (Megace) 400 mg PO DAILY [facility] Last Admin: 11/05/16 09:31 Dose: Not Given Nystatin (Nystatin Oral Susp) 5 ml PO QID [facility] Last Admin: 11/05/16 17:26 Dose: Not Given Oxycodone/Acetaminophen (Percocet 2.5/325 Mg Tab) 2 tab PO Q4H PRN PRN Reason: Pain, moderate (4-7) Phenol/Menthol (Phenaseptic 1.4% Throat [place]) 0 ml MT Q2H PRN PRN Reason: Pain, Mild (1-3) Last Admin: 10/31/16 12:06 Dose: 3 spray Prednisone (Prednisone Tab) 10 mg PO DAILY [facility] Last Admin: 11/05/16 09:31 Dose: Not Given - Labs Labs: 11/03/16 06:45 11/03/16 06:45 - Constitutional Appears: Non-toxic, No Acute Distress - Head Exam Head Exam: NORMAL INSPECTION - ENT Exam ENT Exam: Mucous Membranes Moist - Neck Exam Neck Exam: absent: Meningismus - Respiratory Exam Respiratory Exam: Decreased Breath Sounds - Cardiovascular Exam Cardiovascular Exam: +S1, +S2 - GI/Abdominal Exam GI & Abdominal Exam: Soft. absent: Tenderness Assessment and Plan - Assessment and Plan (Free Text) Plan: Assessment sepsis due to urinary tract infection with Klebsiella, clinically improving unstageable sacral ulcer S/P surgical debridement POD #3 dementia history of pelvic fracture gallstones history of urinary incontinence osteoporosis chronic anemia Plan switched antibiotics to Zosyn; continue local wound care for sacral ulcer will continue to monitor clinically
--- NOTE | 2016-11-07 19:27 | CP.PCM.PN ---
Subjective - Date & Time of Evaluation Date of Evaluation: 11/06/16 Time of Evaluation: 09:00 - Subjective Subjective: DATE: 11/06/2016 SUBJECTIVE: She is comfortable in bed, in no acute distress. She is on PPN. She continues to be on IV antibiotics for sepsis. No events overnight. She is asking for food but unable to swallow. Cachexic. No pain. No cough with expectoration. REVIEW OS SYSTEM: As per HPI. Rest of the 12-point review of systems reviewed and negative. PHYSICAL EXAMINATION: GENERAL: Comfortable in bed in no acute distress. VITAL SIGNS: reviewed. HEENT: Normal. Pallor positive. Cachexia. NECK: No lymphadenopathy. CHEST: Air entry present and equal bilaterally, no added sound. CARDIOVASCULAR: Within normal limits. ABDOMEN: Soft and nontender. No hepatosplenomegaly. EXTREMITIES: No edema. CENTRAL NERVOUS SYSTEM: Alert and oriented x3. LABORATORY DATA: White count 6.4, hemoglobin 10.9, hematocrit 34.8, and platelet count of 222. Sodium 133, potassium 3.9, BUN 16, creatinine 0.4, and glucose 85. MEDICATIONS: DuoNeb p.r.n., Xanax 0.25 mg p.o. b.i.d., Pulmicort inhalation, collagenase topical, Dilaudid 0.5 mg q. 4 hours p.r.n., multivitamin, Percocet 2 tablets q. 4 hours p.r.n., prednisone 10 mg daily, and Zosyn q. 6 hours p.r.n. ASSESSMENT: 1. Failure to thrive. 2. Oral ulcer. 3. Sepsis. 4. Pelvic fracture. 5. Anemia. 6. Decubitus ulcer. PLAN: Unable to swallow. Continue IV antibiotic as per ID. She was getting PPN for nutrition. Discussion ongoing with the family for hospice. She has unstageable sacral ulcer, status post debridement; history of pelvic fracture, stable. Pain control with current medications. Chronic anemia, hemoglobin and hematocrit stable. Continue current medications. Arlene Angelo MD Objective - Vital Signs/Intake and Output Vital Signs (last 24 hours): Temp Pulse Resp BP Pulse Ox 98.5 F 105 H 22 98/43 L 98 11/07/16 16:18 11/07/16 16:18 11/07/16 16:18 11/07/16 16:18 11/07/16 16:18 - Medications Medications: Current Medications Albuterol/Ipratropium (Duoneb 3 Mg/0.5 Mg (3 Ml) Ud) 3 ml IH [id number] [facility] Last Admin: 11/07/16 14:16 Dose: 3 ml Alprazolam (Xanax) 0.25 mg PO BID PRN; Protocol PRN Reason: Anxiety Stop: 11/10/16 18:01 Last Admin: 11/07/16 12:33 Dose: 0.25 mg Benzocaine/Menthol (Cepacol Sore Throat) 1 monica MT Q2H PRN PRN Reason: Sore Throat Budesonide (Pulmicort Respules) 0.5 mg IH BIDRESP [facility] Last Admin: 11/07/16 07:58 Dose: 0.5 mg Collagenase (Santyl) 0 gm TOP DAILY [facility] Last Admin: 11/07/16 11:08 Dose: 1 appful Guaifenesin (Mucinex La) 600 mg PO BID [facility] Last Admin: 11/07/16 17:31 Dose: Not Given Guaifenesin (Robitussin) 200 mg PO Q4H PRN PRN Reason: Cough and congestion Hydromorphone HCl (Dilaudid) 0.5 mg IVP Q4H PRN PRN Reason: Pain, severe (8-10) Last Admin: 11/07/16 18:33 Dose: 0.5 mg Multivitamins/Vitamin C 10 ml/Amino Acids/Electrolytes/Dextrose 2,010 mls @ 83 mls/hr IV .Q24H [facility] Stop: 11/10/16 18:01 Last Admin: 11/07/16 17:31 Dose: 83 mls/hr Piperacillin Sod/Tazobactam Sod (Zosyn 4.5 Gm In Ns 100ml) 4.5 gm in 100 mls @ 200 mls/hr IVPB Q6 ANSELMO PRN Reason: Protocol Stop: 11/14/16 12:01 Last Admin: 11/07/16 17:30 Dose: 200 mls/hr Lidocaine HCl (Lidocaine 2% Viscous) 15 ml PO Q3H PRN PRN Reason: Pain, Mild (1-3) Last Admin: 11/04/16 11:18 Dose: 15 ml Megestrol Acetate (Megace) 400 mg PO DAILY [facility] Last Admin: 11/07/16 10:07 Dose: Not Given Nystatin (Nystatin Oral Susp) 5 ml PO QID [facility] Last Admin: 11/07/16 17:31 Dose: Not Given Oxycodone/Acetaminophen (Percocet 2.5/325 Mg Tab) 2 tab PO Q4H PRN PRN Reason: Pain, moderate (4-7) Last Admin: 11/07/16 15:03 Dose: 2 tab Phenol/Menthol (Phenaseptic 1.4% Throat [place]) 0 ml MT Q2H PRN PRN Reason: Pain, Mild (1-3) Last Admin: 10/31/16 12:06 Dose: 3 spray Prednisone (Prednisone Tab) 10 mg PO DAILY [facility] Last Admin: 11/07/16 10:08 Dose: Not Given - Labs Labs: 11/06/16 06:30 11/06/16 06:30
[2016-11-07] MEDS ORDERED: Oxycodone/Acetaminophen 2.5/325 mg Tab PO PRN (20:12)
[2016-11-07] MEDS: HYDROmorphone 1 mg/ml ISec IVP PRN (23:04)
--- NOTE | 2016-11-07 23:38 | PN ---
DATE: 11/07/2016 SUBJECTIVE: This patient was seen and evaluated earlier, discussed with the patient's son and the family members who were at bedside. PHYSICAL EXAMINATION VITAL SIGNS: On examination, temperature is 98.5, pulse 105, blood pressure 98/43, respirations 22. HEENT: Atraumatic. Anicteric. Mouth ulceration present still. NECK: Supple. HEART: S1 and S2 heard. LUNGS: Bilateral air entry present. ABDOMEN: Soft. EXTREMITIES: No cyanosis, no clubbing. LABORATORY DATA: Yesterday's labs reviewed. Sodium 127, potassium is 3. Hemoglobin 10.4. IMPRESSION: This 86-year-old patient was admitted with malnutrition, multiple oral ulcerations, urinary tract infection, decubitus ulcer, looks cachectic. The patient refused NG tube placement. The patient is due to be scheduled for comfort care measures, transfer to home, if possible home hospice. Supportive care. Thank you very much for allowing me to the participate in the care of the patient. Camilo Servin MD
[2016-11-08] MEDS: Albuterol-Ipratrop 3 mg / 0.5 (3 ml) UD IH SCH ×3 (01:01→13:05)
[2016-11-08] MEDS: HYDROmorphone 1 mg/ml ISec IVP PRN ×2 (06:12→15:48)
[2016-11-08] MEDS: Piperacill/Tazo 4.5gm in NS 4.5 GM/100 ML BAG IVPB SCH ×2 (06:13→16:04)
[2016-11-08] MEDS: Budesonide 0.5 mg/2 ml Inhal Susp UD IH SCH (07:20)
[2016-11-08 08:40] VITALS: RESP 22
--- NOTE | 2016-11-08 09:29 | PN ---
DATE: 11/08/2016 PULMONARY NOTE SUBJECTIVE: The patient appears comfortable this morning. She is not short of breath at rest. She remains weak and cachectic looking. PHYSICAL EXAMINATION: VITAL SIGNS: Temperature is 98.8, pulse this morning 88, respirations 16, blood pressure 95/50. Oxygen saturation on nasal cannula is 98%. HEENT: Normocephalic and atraumatic. NECK: No JVD. CARDIOVASCULAR: Systolic ejection murmur at the lower left sternal border. No S3 gallop. LUNGS: Decreased breath sounds at the bases. Minimal rhonchi. No wheezing. EXTREMITIES: No clubbing, cyanosis or edema. Calves are nontender to palpation. GASTROINTESTINAL: Abdomen is soft, nontender, and nondistended. Bowel sounds are positive. SKIN: No acute rash. NEUROLOGIC: Limited at the present time. IMPRESSION: 1. Chronic obstructive pulmonary disease. 2. Urosepsis. 3. Malnutrition. 4. Anemia. 5. Gallstones. PLAN: The patient appears comfortable this morning. She is not short of breath at rest. She does state to feeling better overall. However, she does remain weak and cachectic looking. On physical exam, her bronchospasm continues to resolve. In addition, the oxygen saturation on nasal cannula is now 98%. I will continue with the current nebulizer treatments and low-dose oral steroids for now. The patient remains on antibiotic therapy - as per Infectious Disease. Input by Dr. Rodriguez is noted. Clinical status of the patient is certainly improved - compared to last week. However, the overall status/prognosis for this elderly patient does remain very guarded. I will discuss the above with the attending physician. Olamn Kenney MD TO
[2016-11-08] MEDS ORDERED: HYDROmorphone 1 mg/ml ISec IVP STA (09:37)
[2016-11-08] MEDS: Nystatin 100,000 Units/ml Oral Susp 5 ml UD PO SCH ×2 (10:38→15:53)
[2016-11-08] MEDS: Megestrol Acetate 40 mg/ml Cup PO SCH (10:38)
[2016-11-08] MEDS: guaiFENesin 600 mg ER Tab PO SCH (10:38)
--- NOTE | 2016-11-08 14:19 | CP.PCM.PN ---
Subjective - Date & Time of Evaluation Date of Evaluation: 11/08/16 Time of Evaluation: 12:30 - Subjective Subjective: Comfortable, not in distress, afebrile. Objective - Vital Signs/Intake and Output Vital Signs (last 24 hours): Temp Pulse Resp BP Pulse Ox 98.5 F 105 H 22 98/43 L 98 11/07/16 16:18 11/07/16 16:18 11/07/16 16:18 11/07/16 16:18 11/07/16 16:18 Intake and Output: 11/07/16 11/07/16 06:59 18:59 Intake Total 1989 Output Total 600 Balance 1390 - Medications Medications: Current Medications Albuterol/Ipratropium (Duoneb 3 Mg/0.5 Mg (3 Ml) Ud) 3 ml IH [id number] [facility] Last Admin: 11/07/16 14:16 Dose: 3 ml Alprazolam (Xanax) 0.25 mg PO BID PRN; Protocol PRN Reason: Anxiety Stop: 11/10/16 18:01 Last Admin: 11/07/16 12:33 Dose: 0.25 mg Benzocaine/Menthol (Cepacol Sore Throat) 1 monica MT Q2H PRN PRN Reason: Sore Throat Budesonide (Pulmicort Respules) 0.5 mg IH BIDRESP [facility] Last Admin: 11/07/16 07:58 Dose: 0.5 mg Collagenase (Santyl) 0 gm TOP DAILY [facility] Last Admin: 11/07/16 11:08 Dose: 1 appful Guaifenesin (Mucinex La) 600 mg PO BID [facility] Last Admin: 11/07/16 17:31 Dose: Not Given Guaifenesin (Robitussin) 200 mg PO Q4H PRN PRN Reason: Cough and congestion Hydromorphone HCl (Dilaudid) 0.5 mg IVP Q4H PRN PRN Reason: Pain, severe (8-10) Last Admin: 11/07/16 11:07 Dose: 0.5 mg Multivitamins/Vitamin C 10 ml/Amino Acids/Electrolytes/Dextrose 2,010 mls @ 83 mls/hr IV .Q24H [facility] Stop: 11/10/16 18:01 Last Admin: 11/07/16 17:31 Dose: 83 mls/hr Piperacillin Sod/Tazobactam Sod (Zosyn 4.5 Gm In Ns 100ml) 4.5 gm in 100 mls @ 200 mls/hr IVPB Q6 ANSELMO PRN Reason: Protocol Stop: 11/07/16 18:29 Last Admin: 11/07/16 17:30 Dose: 200 mls/hr Lidocaine HCl (Lidocaine 2% Viscous) 15 ml PO Q3H PRN PRN Reason: Pain, Mild (1-3) Last Admin: 11/04/16 11:18 Dose: 15 ml Megestrol Acetate (Megace) 400 mg PO DAILY [facility] Last Admin: 11/07/16 10:07 Dose: Not Given Nystatin (Nystatin Oral Susp) 5 ml PO QID [facility] Last Admin: 11/07/16 17:31 Dose: Not Given Oxycodone/Acetaminophen (Percocet 2.5/325 Mg Tab) 2 tab PO Q4H PRN PRN Reason: Pain, moderate (4-7) Last Admin: 11/07/16 15:03 Dose: 2 tab Phenol/Menthol (Phenaseptic 1.4% Throat [place]) 0 ml MT Q2H PRN PRN Reason: Pain, Mild (1-3) Last Admin: 10/31/16 12:06 Dose: 3 spray Prednisone (Prednisone Tab) 10 mg PO DAILY [facility] Last Admin: 11/07/16 10:08 Dose: Not Given - Labs Labs: 11/06/16 06:30 11/06/16 06:30 - Constitutional Appears: Non-toxic, No Acute Distress - Head Exam Head Exam: NORMAL INSPECTION - Neck Exam Neck Exam: absent: Meningismus - Respiratory Exam Respiratory Exam: Decreased Breath Sounds - Cardiovascular Exam Cardiovascular Exam: +S1, +S2 - GI/Abdominal Exam GI & Abdominal Exam: Soft. absent: Tenderness Assessment and Plan - Assessment and Plan (Free Text) Plan: Assessment sepsis due to urinary tract infection with Klebsiella, clinically improving unstageable sacral ulcer S/P surgical debridement POD #5 dementia history of pelvic fracture gallstones history of urinary incontinence osteoporosis chronic anemia Plan continue Zosyn; continue local wound care for sacral ulcer will continue to monitor clinically
[2016-11-08] MEDS: Collagenase 250 Units/gm Ointment(30 gm) TOP SCH (15:54)
[2016-11-08 16:08] VITALS: BP 158/23; PULSE 86; TEMP 97.2; O2SAT 91
--- NOTE | 2016-11-09 04:46 | DS ---
HISTORY OF PRESENT ILLNESS: This is a an 86-year-old female who had come into the hospital because of failure to thrive. She had a pressure ulcer. She had 2 hip fractures in the last few months and had not fully recovered. The patient has not been eating and drinking well. She is not able to ambulate and she is bed bound. Her nutritional status is poor. She has multiple ulcers in the mouth that have not improved. Since she has been here, she was placed on PPN. After extensive discussion with the patient's family, the patient was going to be comfort care at home with hospice services, and this is what the patient's wishes were even prior to coming to the hospital. On previous discussions with her, she is DNR and DNI. The patient is going to be discharged home today. Her pain is not well controlled. She is on IV pain medications at times. We will speak to the family about placing the patient on fentanyl patch low dose for pain. She says she is hungry, but she really does not eat, even though as multiple attempts have been tried to give a nutrition. I have spoken to the family on multiple occasions to give them an update on the patient diagnosis and plan. She is actively dying and her prognosis is poor. PHYSICAL EXAMINATION: VITAL SIGNS: Temperature is 99.5, pulse of 95, blood pressure 113/65, respiration 22, O2 saturation 100%. GENERAL: The patient is lying in bed, flat, comfortable. HEENT: No oral lesion. Anicteric sclerae. Moist mucosa. NECK: No JVD, adenopathy, or thyromegaly. CARDIOVASCULAR: S1 and S2, regular. No murmurs, rubs, or gallops. LUNGS: Clear to auscultation bilaterally. No wheeze, rales, or rhonchi. ABDOMEN: Bowel sounds are positive, soft, nontender and nondistended. EXTREMITIES: No cyanosis, clubbing or edema. On the back, there is pressure ulcer. ASSESSMENT: 1. Oral ulcer/mucositis. 2. Sacral pressure ulcer status post debridement. 3. Malnutrition. 4. Iron-deficiency anemia. 5. Osteoporosis. 6. Cholelithiasis. 7. Hypophosphatemia. 8. Urinary tract infection secondary to Klebsiella. 9. Do not resuscitate/do not intubate. PLAN: The patient is currently comfortable. She has poor nutrition with albumin of 2.3. The patient is on PPN. The patient is going to continue with nystatin. She is on prednisone daily. She is receiving Zosyn for antibiotics. She is on Santyl for her dressing and local wound care. Tristan Gutierrez MD
--- NOTE | 2016-11-09 11:47 | PQF DEBRID ---
This form is a permanent part of the medical record Dr. Park, Clarification of your documentation is requested to better reflect the severity of illness and intensity of treatment of your patient. Indicators present: On 11/04 patient had a sacral decubitus ulcer (unstageable) debridement. Please specify below whether if debridement is excisional or non- excisional. Also, please dictate the operative report of the above patient. Thank you. [x] Documentation of wound care / debridement [] Technique: [] [] Instrument used:[] [] Nature of Tissue Removed:[] [] Appearance of Wound:[] [] Size of Wound: [] [] Depth of Debridement: [] [] Other: [] Location in the medical record that reflects the above clinical findings: [] surgical post-operative note on 11/04 Other Treatment Provided: [] PHYSICIAN'S RESPONSE Based on your medical judgment, can you further clarify the precise NATURE, DEPTH, EXTENT and / or METHODS of wound debridement utilized in this case: [] EXCISIONAL debridement use of a scalpel / blade to cut away tissue Depth (subcutaneous, fascia, muscle, soft tissue and bone) [] Size of Wound [] NON-EXCISIONAL debridement chemical, scrubbing, trimming with a scissor/ versajet [] Other, please indicate: [] [] If unable to determine, please check the box, sign and date. In responding to this query, please exercise your independent professional judgment. The fact that a question is asked does not imply that any particular answer is desired or expected. Thank you for your clarification on this documentation. If you have any questions please call:[ ] * Thank you, [ ]ANTWON GARCIAsolar energy system installer helper TO
--- NOTE | 2016-11-11 06:45 | PQF DEBRID ---
This form is a permanent part of the medical record Dr. Park, Patient with unstageable sacral decubitus ulcer you did a debridement on 11/04. Please specicify if this is an excisional or non-excisional debridement. Thank you. NOTE: the first electronic query was signed by you without answering the question. We have to assign the proper ICD-10 procedure for accuracy. Clarification of your documentation is requested to better reflect the severity of illness and intensity of treatment of your patient. Indicators present [] Documentation of wound care / debridement [] Technique: [] [] Instrument used:[] [] Nature of Tissue Removed:[] [] Appearance of Wound:[] [] Size of Wound: [] [] Depth of Debridement: [] [] Other: [] Location in the medical record that reflects the above clinical findings: [] Other Treatment Provided: [] PHYSICIAN'S RESPONSE Based on your medical judgment, can you further clarify the precise NATURE, DEPTH, EXTENT and / or METHODS of wound debridement utilized in this case: [] EXCISIONAL debridement use of a scalpel / blade to cut away tissue Depth (subcutaneous, fascia, muscle, soft tissue and bone) [] Size of Wound [] NON-EXCISIONAL debridement chemical, scrubbing, trimming with a scissor/ versajet [] Other, please indicate: [] [] If unable to determine, please check the box, sign and date. In responding to this query, please exercise your independent professional judgment. The fact that a question is asked does not imply that any particular answer is desired or expected. Thank you for your clarification on this documentation. If you have any questions please call:[ ] * Thank you, [ ]ANTWON GRACIAmachine operator hay stacker TO
--- NOTE | 2016-11-11 11:37 | OP ---
PREOPERATIVE DIAGNOSIS: Sacral decubitus. POSTOPERATIVE DIAGNOSIS: Sacral decubitus. OPERATION PERFORMED: Debridement. SURGEON: Angel Luis Park MD DESCRIPTION OF PROCEDURE: In the operating room, the patient was identified by name, name of procedure, laterality. The patient needed to be intubated, the local simply would not function, she was very uncooperative. The patient was intubated, placed on her side. After successful time-out, the sacral area was examined. We sharply debrided with an 11 blade and a scissors. The deep tissue was then debrided using the Versajet to bleeding tissue circumferentially. Hemostasis was achieved with cautery followed by pull out by light pressure dressing. Angel Luis Park MD
== END 2016-11-08 16:45 | disposition hospice, home (50) | DRG 853 ==
LOC: ED 10:20 → ERH 12:14 → 5RSO 13:06 → OBSVTOIN 10-26 14:12
PROVIDERS: ADMIT Internal Medicine Nephrology; ATTEND Internal Medicine Nephrology
PROC: 30233N1 Transfusion of Nonautologous Red Blood Cells into Peripheral Vein, Percutaneous Approach (ICD-10-PCS; 2016-10-25)
PROC: 3E0336Z Introduction of Nutritional Substance into Peripheral Vein, Percutaneous Approach (ICD-10-PCS; 2016-11-02)
PROC: 0JD73ZZ Extraction of Back Subcutaneous Tissue and Fascia, Percutaneous Approach (ICD-10-PCS; principal; 2016-11-04 14:00)
DX: A41.59 Other Gram-negative sepsis (principal); L89.613 Pressure ulcer of right heel, stage 3; L89.623 Pressure ulcer of left heel, stage 3; J18.9 Pneumonia, unspecified organism; J44.0 Chronic obstructive pulmonary disease with (acute) lower respiratory infection; R64 Cachexia; E44.1 Mild protein-calorie malnutrition; J44.1 Chronic obstructive pulmonary disease with (acute) exacerbation; N39.0 Urinary tract infection, site not specified; L97.329 Non-pressure chronic ulcer of left ankle with unspecified severity; L97.229 Non-pressure chronic ulcer of left calf with unspecified severity; E87.1 Hypo-osmolality and hyponatremia; L89.150 Pressure ulcer of sacral region, unstageable; K12.30 Oral mucositis (ulcerative), unspecified; F03.90 Unspecified dementia, unspecified severity, without behavioral disturbance, psychotic disturbance, mood disturbance, and anxiety; F17.210 Nicotine dependence, cigarettes, uncomplicated; D50.9 Iron deficiency anemia, unspecified; E86.0 Dehydration; I10 Essential (primary) hypertension; E83.39 Other disorders of phosphorus metabolism; R62.7 Adult failure to thrive; B96.1 Klebsiella pneumoniae [K. pneumoniae] as the cause of diseases classified elsewhere; K80.20 Calculus of gallbladder without cholecystitis without obstruction; Z66 Do not resuscitate; M80.859 Other osteoporosis with current pathological fracture, unspecified femur; F41.9 Anxiety disorder, unspecified; Z51.5 Encounter for palliative care; R45.1 Restlessness and agitation; Z96.643 Presence of artificial hip joint, bilateral; Z68.20 Body mass index [BMI] 20.0-20.9, adult; Z74.01 Bed confinement status